=== PATIENT | female | born 1935 | race Caucasian/White ===

== ENCOUNTER 2020-04-15 12:23 | Outpatient (REF) | payer MEDICARE, SELFPAY ==
[2020-04-15 13:58] LABS: MANUAL DIFF FLAG NO
[2020-04-15 14:10] LABS: Basophils Percent Auto 0.5 % (0-2); Eosinophils Absolute Auto 0.3 X10*3/uL (0.0-0.4); Eosinophils Percent Auto 4.4 % (0-4); Hematocrit 33.5 % (37-47); Hemoglobin 10.6 g/dl (12.0-16.0); Imm Gran Abs Auto 0.01 X10*3/uL (0.00-0.03); Imm Gran Pct Auto 0.2 % (0.0-0.4); Lymphocytes Absolute Auto 1.4 X10*3/uL (1.2-4.9); Lymphocytes Percent Auto 23.2 % (20-40); Mean Corpuscular HGB Conc 31.6 g/dl (31.0-35.0); Mean Corpuscular Hemoglobin 29.4 pg (27.0-33.0); Mean Corpuscular Volume 93.1 fL (80-98); Mean Platelet Volume 12.6 fL (9.4-12.3); Monocytes Absolute Auto 0.7 X10*3/uL (0.1-1.2); Monocytes Percent Auto 10.7 % (2-11); Neutrophils Absolute Auto 3.8 X10*3/uL (2.0-8.3); Platelet Count 194 X10*3/uL (160-400); White Blood Count 6.2 X10*3/uL (4.8-10.8)
[2020-04-15 14:37] LABS: Alanine Aminotransferase 16 U/L (0-31); Albumin Level 3.9 g/dL (3.5-5.0); Alkaline Phosphatase 113 U/L (39-117); Anion Gap 13 (12-20); Aspartate Amino Transferase 23 U/L (5-31); Bilirubin Total 0.3 mg/dL (0.0-1.0); Blood Urea Nitrogen 21 mg/dL (9-16); Calcium 8.6 mg/dL (8.4-10.2); Carbon Dioxide 28 mmol/L (22-29); Chloride 106 mmol/L (96-108); Estimated Glomerular Filt Rate 41; Glucose Random 80 mg/dL (60-115); Iron 71 mcg/dL (30-160); Percent Iron Saturation 20 % (15-50); Potassium 5.2 mmol/l (3.3-5.1); Sodium 142 mmol/L (135-145); Total Iron Binding Capacity 353 mcg/dL (228-428); Total Protein 6.6 g/dL (6.5-8.0); Unsaturated Iron Binding 282 ug/dL
[2020-04-15 17:42] LABS: Estimated Average Glucose 137 mg/dL; Hemoglobin A1c % 6.4 %
== END 2020-04-15 12:24 | disposition home or self-care (01) ==
LOC: HO.HMGCLDS 12:23
PROVIDERS: PCP Internal Medicine; Visit Provider Internal Medicine
DX: E11.22 Type 2 diabetes mellitus with diabetic chronic kidney disease (principal); I12.9 Hypertensive chronic kidney disease with stage 1 through stage 4 chronic kidney disease, or unspecified chronic kidney disease; N18.9 Chronic kidney disease, unspecified; I25.10 Atherosclerotic heart disease of native coronary artery without angina pectoris; D64.9 Anemia, unspecified
CPT/HCPCS: 36415; 80053; 83036; 83540; 85025

== ENCOUNTER 2020-07-21 08:50 | Outpatient (REF) | payer MEDICARE, SELFPAY ==
[2020-07-21 11:13] LABS: MANUAL DIFF FLAG NO
[2020-07-21 11:30] LABS: Estimated Average Glucose 131 mg/dL; Hemoglobin A1c % 6.2 %
[2020-07-21 11:34] LABS: Basophils Percent Auto 0.4 % (0-2); Eosinophils Absolute Auto 0.3 X10*3/uL (0.0-0.4); Eosinophils Percent Auto 6.3 % (0-4); Hematocrit 32.7 % (37-47); Hemoglobin 10.2 g/dl (12.0-16.0); Imm Gran Abs Auto 0.02 X10*3/uL (0.00-0.03); Imm Gran Pct Auto 0.4 % (0.0-0.4); Lymphocytes Absolute Auto 1.1 X10*3/uL (1.2-4.9); Lymphocytes Percent Auto 20.1 % (20-40); Mean Corpuscular HGB Conc 31.2 g/dl (31.0-35.0); Mean Corpuscular Hemoglobin 28.7 pg (27.0-33.0); Mean Corpuscular Volume 91.9 fL (80-98); Mean Platelet Volume 12.6 fL (9.4-12.3); Monocytes Absolute Auto 0.5 X10*3/uL (0.1-1.2); Neutrophils Absolute Auto 3.3 X10*3/uL (2.0-8.3); Neutrophils Percent Auto 62.8 % (45-73); Platelet Count 176 X10*3/uL (160-400); Red Blood Count 3.56 X10*6/uL (4.20-5.50); Red Cell Distribution Width 13.3 % (11.0-16.0); White Blood Count 5.2 X10*3/uL (4.8-10.8)
[2020-07-21 11:53] LABS: Creatinine Urine 96.12 mg/dL
[2020-07-21 12:00] LABS: Alanine Aminotransferase 14 U/L (0-31); Albumin Level 3.9 g/dL (3.5-5.0); Alkaline Phosphatase 90 U/L (39-117); Anion Gap 13 (12-20); Aspartate Amino Transferase 19 U/L (5-31); Bilirubin Total 0.3 mg/dL (0.0-1.0); Blood Urea Nitrogen 27 mg/dL (9-16); Carbon Dioxide 28 mmol/L (22-29); Chloride 105 mmol/L (96-108); Cholesterol 134 mg/dL; Estimated Glomerular Filt Rate 42; Glucose Fasting 154 mg/dL (60-99); HDL Cholesterol 46 mg/dL; LDL Cholesterol Calculated 64 mg/dl; Potassium 5.2 mmol/L (3.3-5.1); Sodium 141 mmol/L (135-145); Total Protein 6.6 g/dL (6.5-8.0); Triglycerides 123 mg/dL
== END 2020-07-21 08:51 | disposition home or self-care (01) ==
LOC: HO.HMGCLDS 08:50
PROVIDERS: PCP Internal Medicine; Visit Provider Internal Medicine
DX: E11.22 Type 2 diabetes mellitus with diabetic chronic kidney disease (principal); I12.9 Hypertensive chronic kidney disease with stage 1 through stage 4 chronic kidney disease, or unspecified chronic kidney disease; I25.10 Atherosclerotic heart disease of native coronary artery without angina pectoris; N18.9 Chronic kidney disease, unspecified; E78.00 Pure hypercholesterolemia, unspecified
CPT/HCPCS: 36415; 80053; 80061; 82043; 83036; 85025

== ENCOUNTER 2020-09-28 11:49 | Outpatient (REF) | payer MEDICARE, SELFPAY ==
[2020-09-28 14:03] LABS: MANUAL DIFF FLAG NO
[2020-09-28 14:08] LABS: Basophils Percent Auto 0.3 % (0-2); Eosinophils Absolute Auto 0.3 X10*3/uL (0.0-0.4); Eosinophils Percent Auto 4.5 % (0-4); Hematocrit 33.6 % (37-47); Hemoglobin 10.5 g/dl (12.0-16.0); Imm Gran Abs Auto 0.02 X10*3/uL (0.00-0.03); Imm Gran Pct Auto 0.3 % (0.0-0.4); Lymphocytes Absolute Auto 1.4 X10*3/uL (1.2-4.9); Lymphocytes Percent Auto 22.6 % (20-40); Mean Corpuscular HGB Conc 31.3 g/dl (31.0-35.0); Mean Corpuscular Hemoglobin 28.8 pg (27.0-33.0); Mean Corpuscular Volume 92.1 fL (80-98); Mean Platelet Volume 12.7 fL (9.4-12.3); Monocytes Absolute Auto 0.7 X10*3/uL (0.1-1.2); Monocytes Percent Auto 10.8 % (2-11); Neutrophils Absolute Auto 3.9 X10*3/uL (2.0-8.3); Neutrophils Percent Auto 61.5 % (45-73); Platelet Count 196 X10*3/uL (160-400); Red Blood Count 3.65 X10*6/uL (4.20-5.50); Red Cell Distribution Width 13.4 % (11.0-16.0); White Blood Count 6.3 X10*3/uL (4.8-10.8)
[2020-09-28 14:32] LABS: Anion Gap 16 (12-20); Blood Urea Nitrogen 29 mg/dL (9-16); Carbon Dioxide 24 mmol/L (22-29); Chloride 103 mmol/L (96-108); Estimated Glomerular Filt Rate 39; Glucose Random 186 mg/dL (60-115); Sodium 138 mmol/L (135-145)
== END 2020-09-28 11:50 | disposition home or self-care (01) ==
LOC: HO.HMGCLDS 11:49
PROVIDERS: PCP Internal Medicine; Visit Provider Internal Medicine
DX: I11.0 Hypertensive heart disease with heart failure (principal); E11.22 Type 2 diabetes mellitus with diabetic chronic kidney disease; N18.9 Chronic kidney disease, unspecified
CPT/HCPCS: 36415; 80048; 85025

== ENCOUNTER 2020-10-01 13:03 | Outpatient (REF) | payer MEDICARE, SELFPAY ==
[2020-10-01 14:41] LABS: Influenza A PCR NEGATIVE (Negative); Influenza B PCR NEGATIVE (Negative); Resp Syncy Virus RNA Qual PCR NEGATIVE (Negative); SARS COV2 PCR INHOUSE NEGATIVE (Negative)
== END 2020-10-01 13:04 | disposition home or self-care (01) ==
LOC: HO.10HDLNP 13:03
PROVIDERS: Visit Provider Internal Medicine
DX: Z20.822 Contact with and (suspected) exposure to COVID-19 (principal)
CPT/HCPCS: 0241U

== ENCOUNTER 2020-10-19 11:32 | Outpatient (REF) | payer MEDICARE, SELFPAY ==
--- NOTE | ~2020-10-19 | US_ITS ---
EXAMINATION: US THYROID CLINICAL INFORMATION: Right lobe thyroid lesion. COMPARISON: None TECHNIQUE: Linear transducer grayscale and color Doppler examination with attention to the region of the thyroid. FINDINGS: SIZE: Measurements of the thyroid lobes and nodules are given in sagittal, anteroposterior and transverse dimensions respectively. Right Thyroid Lobe: 5.0 x 2.6 x 2.3 cm, volume 15.6 mL. Parenchyma: The gland echotexture is heterogeneous. Thyroid vascularity is normal. Left Thyroid Lobe: 3.8 x 1.1 x 1.1 cm, volume 2.4 mL. Parenchyma: The gland echotexture is mildly heterogeneous. Thyroid vascularity is normal. Isthmus: 0.3 cm in maximum AP dimension. Estimated total number of nodules greater than or equal to 1 cm: 1. Hay Farmer nodules are described as follows: 1. Location: Right mid. Size: 3.7 x 2.4 x 2.4 cm, volume 11.3 mL. Nodule characteristics: Composition: Solid (2). Echogenicity: Isoechoic (1). Shape: Not taller than wide (0). Margins: Smooth (0). Echogenic Foci: Macrocalcifications (1). ACR TI-RADS total points: 4 ACR TI-RADS category: 4 NODES: No lymphadenopathy is seen in the tissue surrounding the thyroid gland. US/US thyroid IMPRESSION: Solitary right thyroid nodule. Fine-needle aspiration recommended. ACR TI-RADS RECOMMENDATION REFERENCE: Ultrasound-guided fine-needle aspiration, followup ultrasound, no further follow up. * TR1 (0 point) and TR 2 (2 points): No FNA or follow up * TR3 (3 points): FNA if more than or equal to 2.5 cm in maximum dimension, followup ultrasound in 1, 3 and 5 years if 1.5 to 2.4 cm in maximum dimension. * TR4 (4-6 points): FNA if more than or equal to 1.5 cm in maximum dimension, followup ultrasound in 1, 2, 3 and 5 years if 1 to 1.4 cm in maximum dimension. * TR5 (more than or equal to 7 points): FNA if more than or equal to 1 cm in maximum dimension, followup ultrasound every year for 5 years if 0.5 to 0.9 cm in maximum dimension. * TR3, TR4 or TR5 nodules that are below the size threshold for follow up receive no follow up.
== END 2020-10-19 11:33 | disposition home or self-care (01) ==
LOC: HO.HMGCX 11:32
PROVIDERS: PCP Internal Medicine; Visit Provider Internal Medicine
DX: E07.89 Other specified disorders of thyroid (principal)
CPT/HCPCS: 76536

== ENCOUNTER 2020-11-18 09:49 | Outpatient (REF) | payer MEDICARE, SELFPAY ==
[2020-11-18 11:12] LABS: MANUAL DIFF FLAG NO
[2020-11-18 11:26] LABS: Basophils Percent Auto 0.5 % (0-2); Eosinophils Absolute Auto 0.3 X10*3/uL (0.0-0.4); Eosinophils Percent Auto 3.8 % (0-4); Hematocrit 33.1 % (37-47); Hemoglobin 10.4 g/dl (12.0-16.0); Imm Gran Abs Auto 0.02 X10*3/uL (0.00-0.03); Imm Gran Pct Auto 0.3 % (0.0-0.4); Lymphocytes Absolute Auto 1.2 X10*3/uL (1.2-4.9); Lymphocytes Percent Auto 18.5 % (20-40); Mean Corpuscular HGB Conc 31.4 g/dl (31.0-35.0); Mean Corpuscular Hemoglobin 29.5 pg (27.0-33.0); Mean Corpuscular Volume 93.8 fL (80-98); Mean Platelet Volume 12.8 fL (9.4-12.3); Monocytes Absolute Auto 0.7 X10*3/uL (0.1-1.2); Monocytes Percent Auto 9.8 % (2-11); Neutrophils Absolute Auto 4.5 X10*3/uL (2.0-8.3); Neutrophils Percent Auto 67.1 % (45-73); Platelet Count 178 X10*3/uL (160-400); Red Blood Count 3.53 X10*6/uL (4.20-5.50); Red Cell Distribution Width 13.7 % (11.0-16.0); White Blood Count 6.7 X10*3/uL (4.8-10.8)
[2020-11-18 12:08] LABS: Erythrocyte Sedimentation Rate 39 MM/HR (0-20)
[2020-11-18 12:10] LABS: Uric Acid 7.1 mg/dL (2.4-5.7)
== END 2020-11-18 09:50 | disposition home or self-care (01) ==
LOC: HO.HMGCLDS 09:49
PROVIDERS: PCP Internal Medicine; Visit Provider Podiatrist
DX: M10.072 Idiopathic gout, left ankle and foot (principal)
CPT/HCPCS: 36415; 84550; 85025; 85652

== ENCOUNTER 2020-12-27 08:25 | Outpatient (REF) | payer MEDICARE, SELFPAY ==
[2020-12-27 10:59] LABS: Free T4 (Free Thyroxine) 0.82 ng/dL (0.71-1.85); Thyroid Stimulating Hormone 2.14 uIU/mL (0.32-4.0)
== END 2020-12-27 08:26 | disposition home or self-care (01) ==
LOC: HO.10HDL 08:25
PROVIDERS: PCP Internal Medicine; Visit Provider Internal Medicine
DX: E04.2 Nontoxic multinodular goiter (principal)
CPT/HCPCS: 36415; 84439; 84443; 99202

== ENCOUNTER 2021-02-02 10:10 | Outpatient (REF) | payer MEDICARE, SELFPAY ==
[2021-02-02 11:17] LABS: MANUAL DIFF FLAG NO
[2021-02-02 11:27] LABS: Basophils Percent Auto 0.4 % (0-2); Eosinophils Absolute Auto 0.2 X10*3/uL (0.0-0.4); Eosinophils Percent Auto 4.3 % (0-4); Hematocrit 32.1 % (37-47); Hemoglobin 10.3 g/dl (12.0-16.0); Imm Gran Abs Auto 0.01 X10*3/uL (0.00-0.03); Imm Gran Pct Auto 0.2 % (0.0-0.4); Lymphocytes Absolute Auto 1.1 X10*3/uL (1.2-4.9); Lymphocytes Percent Auto 19.6 % (20-40); Mean Corpuscular HGB Conc 32.1 g/dl (31.0-35.0); Mean Corpuscular Hemoglobin 29.6 pg (27.0-33.0); Mean Corpuscular Volume 92.2 fL (80-98); Mean Platelet Volume 12.3 fL (9.4-12.3); Monocytes Absolute Auto 0.5 X10*3/uL (0.1-1.2); Monocytes Percent Auto 9.2 % (2-11); Neutrophils Absolute Auto 3.7 X10*3/uL (2.0-8.3); Neutrophils Percent Auto 66.3 % (45-73); Platelet Count 180 X10*3/uL (160-400); Red Blood Count 3.48 X10*6/uL (4.20-5.50); Red Cell Distribution Width 13.2 % (11.0-16.0); White Blood Count 5.6 X10*3/uL (4.8-10.8)
[2021-02-02 12:22] LABS: Alanine Aminotransferase 17 U/L (0-31); Albumin Level 3.7 g/dL (3.5-5.0); Alkaline Phosphatase 109 U/L (39-117); Anion Gap 12 (12-20); Aspartate Amino Transferase 18 U/L (5-31); Bilirubin Total 0.3 mg/dL (0.0-1.0); Blood Urea Nitrogen 27 mg/dL (9-16); Calcium 9.1 mg/dL (8.4-10.2); Carbon Dioxide 26 mmol/L (22-29); Chloride 104 mmol/L (96-108); Estimated Glomerular Filt Rate 41; Glucose Random 254 mg/dL (60-115); Iron 53 mcg/dL (30-160); Potassium 5.2 mmol/L (3.3-5.1); Sodium 137 mmol/L (135-145); Total Protein 6.3 g/dL (6.5-8.0)
[2021-02-02 12:23] LABS: Creatinine Urine 47.56 mg/dL; Microalbum/Creatinine Ratio Ur 115.6 ug/mg cr
[2021-02-02 12:53] LABS: Estimated Average Glucose 157 mg/dL; Hemoglobin A1c % 7.1 %
[2021-02-02 14:56] LABS: Percent Iron Saturation 14 % (15-50); Total Iron Binding Capacity 372 mcg/dL (228-428); Unsaturated Iron Binding 319 ug/dL
== END 2021-02-02 10:11 | disposition home or self-care (01) ==
LOC: HO.HMGCLDS 10:10
PROVIDERS: PCP Internal Medicine; Visit Provider Internal Medicine
DX: I12.9 Hypertensive chronic kidney disease with stage 1 through stage 4 chronic kidney disease, or unspecified chronic kidney disease (principal); E11.22 Type 2 diabetes mellitus with diabetic chronic kidney disease; N18.9 Chronic kidney disease, unspecified; I25.10 Atherosclerotic heart disease of native coronary artery without angina pectoris
CPT/HCPCS: 36415; 80053; 82043; 83036; 83540; 85025

== ENCOUNTER 2021-02-24 09:58 | Outpatient (REF) | payer MEDICARE, SELFPAY ==
--- NOTE | 2021-02-24 10:35 | P.BOP_ITS ---
Brief Operative Note Date of Service: 02/24/21 Pre-op diagnosis: Multinodular Thyroid Procedure: This is doctor Jazmine Cunningham. This is an ultrasound-guided fine-needle aspiration report. Date of Examination: 02/24/2021 Indication: Multinodular Thyroid Porcedure: Procedure was explained to the patient. Alternatives, the risk and benefits were discussed. Written consent was obtained. A time-out was also obtained. After sterile preparation, fine-needle aspiration of a right mid pole 3.7 cm thyroid nodule was performed using direct ultrasound guidance to confirm accurate needle placement. Four aspirations were made using 27 gauge needles. Samples were submitted for cytology. One pass was dedicated for [employer] mathematics department chair testing. The patient tolerated the procedure well. Aftercare instructions were provided. Impression: Uncomplicated fine needle aspiration biopsy of a right mid pole 3.7 cm thyroid nodule under ultrasound guidance. Surgeon: Jazmine Cunningham, DO Was an Intelligence Support Officer used for this Procedure?: No Estimated blood loss (mL): 0
== END 2021-02-24 09:59 | disposition home or self-care (01) ==
LOC: HO.US 09:58
PROVIDERS: PCP Internal Medicine; Visit Provider Internal Medicine
DX: E04.2 Nontoxic multinodular goiter (principal)
CPT/HCPCS: 10005; 88172; 88173; 88177

== ENCOUNTER → 2021-03-10 10:14 | Outpatient (BNVA) | payer MEDICARE, SELFPAY | PROVIDERS: PCP Internal Medicine; Visit Provider Internal Medicine | CPT/HCPCS: Q3014 ==

== ENCOUNTER → 2021-03-11 14:41 | Outpatient (BNVA) | payer MEDICARE, SELFPAY | PROVIDERS: PCP Internal Medicine; Visit Provider Physician Assistant | DX: M17.0 Bilateral primary osteoarthritis of knee (principal) | CPT/HCPCS: 20610; 99212; J7318 ==

== ENCOUNTER 2021-06-23 11:55 | Outpatient (REF) | payer MEDICARE, SELFPAY ==
[2021-06-23 14:27] LABS: Anion Gap 13 (12-20); Blood Urea Nitrogen 32 mg/dL (9-16); Calcium 9.2 mg/dL (8.4-10.2); Carbon Dioxide 28 mmol/L (22-29); Chloride 101 mmol/L (96-108); Estimated Glomerular Filt Rate 35; Glucose Random 322 mg/dL (60-115); Potassium 4.8 mmol/L (3.3-5.1); Sodium 137 mmol/L (135-145)
== END 2021-06-23 11:56 | disposition home or self-care (01) ==
LOC: HO.HMGCLDS 11:55
PROVIDERS: PCP Internal Medicine; Visit Provider Nurse Practitioner Family
DX: I25.10 Atherosclerotic heart disease of native coronary artery without angina pectoris (principal)
CPT/HCPCS: 36415; 80048

== ENCOUNTER 2021-10-17 11:48 | Outpatient (REF) | payer MEDICARE, SELFPAY ==
[2021-10-17 13:58] LABS: MANUAL DIFF FLAG NO
[2021-10-17 14:11] LABS: Basophils Percent Auto 0.5 % (0-2); Eosinophils Absolute Auto 0.2 X10*3/uL (0.0-0.4); Eosinophils Percent Auto 2.7 % (0-4); Hematocrit 32.5 % (37.0-47.0); Hemoglobin 10.4 g/dl (12.0-16.0); Imm Gran Abs Auto 0.02 X10*3/uL (0.00-0.03); Imm Gran Pct Auto 0.4 % (0.0-0.4); Lymphocytes Absolute Auto 1.2 X10*3/uL (1.2-4.9); Mean Corpuscular Hemoglobin 30.9 pg (27.0-33.0); Mean Corpuscular Volume 96.4 fL (80.0-98.0); Mean Platelet Volume 13.8 fL (9.4-12.3); Monocytes Absolute Auto 0.5 X10*3/uL (0.1-1.2); Monocytes Percent Auto 9.7 % (2-11); Neutrophils Absolute Auto 3.6 x10*3/uL (2.0-8.3); Neutrophils Percent Auto 64.7 % (45-73); Platelet Count 161 X10*3/uL (160-400); Red Blood Count 3.37 X10*6/uL (4.20-5.50); White Blood Count 5.5 X10*3/uL (4.8-10.8)
[2021-10-17 14:15] LABS: Estimated Average Glucose 278 mg/dL; Hemoglobin A1c % 11.3 %
[2021-10-17 14:27] LABS: Anion Gap 15 (12-20); Carbon Dioxide 25 mmol/L (22-29); Chloride 97 mmol/L (96-108); Potassium 4.9 mmol/L (3.3-5.1); Sodium 132 mmol/L (135-145)
[2021-10-17 14:28] LABS: Alanine Aminotransferase 20 U/L (0-31); Albumin Level 3.6 g/dL (3.5-5.0); Alkaline Phosphatase 124 U/L (39-117); Aspartate Amino Transferase 27 U/L (5-31); Bilirubin Total 0.2 mg/dL (0.0-1.0); Blood Urea Nitrogen 31 mg/dL (9-16); Calcium 9.2 mg/dL (8.4-10.2); Estimated Glomerular Filt Rate 26; Total Protein 6.4 g/dL (6.5-8.0)
[2021-10-17 14:29] LABS: Creatinine Urine 42.41 mg/dL; Microalbum/Creatinine Ratio Ur 58.9 ug/mg cr
[2021-10-17 15:21] LABS: Glucose Random 422 mg/dL (60-115)
== END 2021-10-17 11:49 | disposition home or self-care (01) ==
LOC: HO.HMGCLDS 11:48
PROVIDERS: PCP Internal Medicine; Visit Provider Internal Medicine
DX: I12.9 Hypertensive chronic kidney disease with stage 1 through stage 4 chronic kidney disease, or unspecified chronic kidney disease (principal); N18.9 Chronic kidney disease, unspecified; E11.22 Type 2 diabetes mellitus with diabetic chronic kidney disease; I25.10 Atherosclerotic heart disease of native coronary artery without angina pectoris
CPT/HCPCS: 36415; 80053; 82043; 83036; 85025

== ENCOUNTER 2021-12-19 13:42 | Outpatient (REF) | payer MEDICARE, SELFPAY ==
[2021-12-19 16:47] LABS: Estimated Average Glucose 192 mg/dL; Hemoglobin A1c % 8.3 %
[2021-12-19 16:53] LABS: Anion Gap 15 (12-20); Blood Urea Nitrogen 28 mg/dL (9-16); Carbon Dioxide 22 mmol/L (22-29); Chloride 102 mmol/L (96-108); Estimated Glomerular Filt Rate 35; Glucose Random 220 mg/dL (60-115); Potassium 4.5 mmol/L (3.3-5.1); Sodium 134 mmol/L (135-145)
== END 2021-12-19 13:43 | disposition home or self-care (01) ==
LOC: HO.HMGCLDS 13:42
PROVIDERS: PCP Internal Medicine; Visit Provider Internal Medicine
DX: I12.9 Hypertensive chronic kidney disease with stage 1 through stage 4 chronic kidney disease, or unspecified chronic kidney disease (principal); N18.9 Chronic kidney disease, unspecified; E11.22 Type 2 diabetes mellitus with diabetic chronic kidney disease
CPT/HCPCS: 36415; 80048; 83036

== ENCOUNTER 2022-03-01 09:55 | Outpatient (REF) | payer MEDICARE, SELFPAY ==
--- NOTE | ~2022-03-01 | US_ITS ---
EXAMINATION: US THYROID CLINICAL INFORMATION: Nontoxic multinodular goiter. COMPARISON: Ultrasound soft tissue head/neck thyroid dated 10/19/2020. TECHNIQUE: Linear transducer grayscale and color Doppler examination with attention to the region of the thyroid. FINDINGS: SIZE: Measurements of the thyroid lobes and nodules are given in sagittal, anteroposterior and transverse dimensions respectively. Right Thyroid Lobe: 4.1 x 2.9 x 2.5 cm, volume 15.6 mL. Previously 5.0 x 2.6 x 2.3 cm, volume 15.6 mL. Parenchyma: The gland echotexture is heterogeneous. Thyroid vascularity is normal. Left Thyroid Lobe: 3.8 x 1.5 x 0.9 cm, volume 2.7 mL. Previously 3.8 x 1.1 x 1.1 cm, volume 2.4 mL. Parenchyma: The gland echotexture is heterogeneous. Thyroid vascularity is normal. Isthmus: 0.2 cm in maximum AP dimension. Previously 0.3 cm. Estimated total number of nodules greater than or equal to 1 cm: 1. Diamond Die Driller nodules are described as follows: 1. Location: Right. Size: 3.6 x 2.4 x 2.6 cm, volume 11.3 mL. Previously: 3.7 x 2.4 x 2.4 cm, volume 11.3 mL. Nodule characteristics: Composition: Solid (2). Echogenicity: Hypoechoic (2). Shape: Not taller than wide (0). Margins: Smooth (0). Echogenic Foci: Macrocalcifications (1). ACR TI-RADS total points: 5 Previous: 4 ACR TI-RADS category: 4 Previous: 4 Significant change in size (>/= 20% in 2 dimensions and minimal increase of 2 mm or 50% or greater increase in volume): No Change in features: No Change in ACR TI-RADS risk category: No NODES: No lymphadenopathy is seen in the tissue surrounding the thyroid gland. US/US thyroid IMPRESSION: Heterogeneous thyroid echotexture. Enlarged right lobe. Stable right thyroid nodule. ACR TI-RADS RECOMMENDATION REFERENCE: Ultrasound-guided fine-needle aspiration, followup ultrasound, no further follow up. * TR1 (0 point) and TR 2 (2 points): No FNA or follow up * TR3 (3 points): FNA if more than or equal to 2.5 cm in maximum dimension, followup ultrasound in 1, 3 and 5 years if 1.5 to 2.4 cm in maximum dimension. * TR4 (4-6 points): FNA if more than or equal to 1.5 cm in maximum dimension, followup ultrasound in 1, 2, 3 and 5 years if 1 to 1.4 cm in maximum dimension. * TR5 (more than or equal to 7 points): FNA if more than or equal to 1 cm in maximum dimension, followup ultrasound every year for 5 years if 0.5 to 0.9 cm in maximum dimension. * TR3, TR4 or TR5 nodules that are below the size threshold for follow up receive no follow up.
== END 2022-03-01 09:56 | disposition home or self-care (01) ==
LOC: HO.HMGCX 09:55
PROVIDERS: PCP Internal Medicine; Visit Provider Internal Medicine
DX: E04.2 Nontoxic multinodular goiter (principal)
CPT/HCPCS: 76536

== ENCOUNTER 2022-03-21 08:17 | Outpatient (REF) | payer MEDICARE, SELFPAY ==
[2022-03-21 11:20] LABS: MANUAL DIFF FLAG NO
[2022-03-21 11:30] LABS: Basophils Percent Auto 0.6 % (0-2); Eosinophils Absolute Auto 0.2 X10*3/uL (0.0-0.4); Eosinophils Percent Auto 4.2 % (0-4); Hematocrit 32.9 % (37.0-47.0); Hemoglobin 10.6 g/dl (12.0-16.0); Imm Gran Abs Auto 0.01 X10*3/uL (0.00-0.03); Imm Gran Pct Auto 0.2 % (0.0-0.4); Lymphocytes Absolute Auto 1.5 X10*3/uL (1.2-4.9); Lymphocytes Percent Auto 31.6 % (20-40); Mean Corpuscular HGB Conc 32.2 g/dl (31.0-35.0); Mean Corpuscular Hemoglobin 31.2 pg (27.0-33.0); Mean Corpuscular Volume 96.8 fL (80.0-98.0); Mean Platelet Volume 12.4 fL (9.4-12.3); Monocytes Absolute Auto 0.6 X10*3/uL (0.1-1.2); Monocytes Percent Auto 11.5 % (2-11); Neutrophils Absolute Auto 2.5 x10*3/uL (2.0-8.3); Neutrophils Percent Auto 51.9 % (45-73); Platelet Count 173 X10*3/uL (160-400); Red Cell Distribution Width 13.2 % (11.0-16.0); White Blood Count 4.8 X10*3/uL (4.8-10.8)
[2022-03-21 11:35] LABS: Estimated Average Glucose 154 mg/dL
[2022-03-21 11:42] LABS: Alanine Aminotransferase 25 U/L (0-31); Albumin Level 3.9 g/dL (3.5-5.0); Alkaline Phosphatase 110 U/L (39-117); Anion Gap 16 (12-20); Aspartate Amino Transferase 31 U/L (5-31); Bilirubin Total 0.3 mg/dL (0.0-1.0); Blood Urea Nitrogen 26 mg/dL (9-16); Calcium 9.3 mg/dL (8.4-10.2); Carbon Dioxide 26 mmol/L (22-29); Chloride 103 mmol/L (96-108); Cholesterol 124 mg/dL; Estimated Glomerular Filt Rate 34; Glucose Fasting 122 mg/dL (60-99); HDL Cholesterol 40 mg/dL; LDL Cholesterol Calculated 48 mg/dl; Potassium 5.1 mmol/L (3.3-5.1); Sodium 140 mmol/L (135-145); Total Protein 6.5 g/dL (6.5-8.0); Triglycerides 184 mg/dL
[2022-03-21 12:06] LABS: Creatinine Urine 82.57 mg/dL; Microalbum/Creatinine Ratio Ur 56.9 ug/mg cr
[2022-03-21 12:18] LABS: Free T4 (Free Thyroxine) 0.91 ng/dL (0.71-1.85); Thyroid Stimulating Hormone 2.83 uIU/mL (0.32-4.0)
== END 2022-03-21 08:18 | disposition home or self-care (01) ==
LOC: HO.HMGCLDS 08:17
PROVIDERS: Internal Medicine; PCP Internal Medicine; Visit Provider Internal Medicine
DX: E04.2 Nontoxic multinodular goiter (principal); I25.10 Atherosclerotic heart disease of native coronary artery without angina pectoris; E78.00 Pure hypercholesterolemia, unspecified; I12.9 Hypertensive chronic kidney disease with stage 1 through stage 4 chronic kidney disease, or unspecified chronic kidney disease; N18.9 Chronic kidney disease, unspecified
CPT/HCPCS: 36415; 80053; 80061; 82043; 83036; 84439; 84443; 85025

== ENCOUNTER → 2022-04-14 10:22 | Outpatient (BNVA) | payer MEDICARE, SELFPAY | PROVIDERS: PCP Internal Medicine; Visit Provider Physician Assistant | DX: M17.0 Bilateral primary osteoarthritis of knee (principal) | CPT/HCPCS: 20610; J7318 ==

== ENCOUNTER 2022-07-19 14:12 | Outpatient (REF) | payer MEDICARE, SELFPAY ==
[2022-07-19 16:50] LABS: Estimated Average Glucose 166 mg/dL; Hemoglobin A1c % 7.4 %
[2022-07-19 16:55] LABS: Alanine Aminotransferase 27 U/L (0-31); Albumin Level 4.1 g/dL (3.5-5.0); Alkaline Phosphatase 130 U/L (39-117); Anion Gap 15 (12-20); Aspartate Amino Transferase 35 U/L (5-31); Bilirubin Total 0.5 mg/dL (0.0-1.0); Blood Urea Nitrogen 28 mg/dL (9-16); Calcium 9.9 mg/dL (8.4-10.2); Carbon Dioxide 26 mmol/L (22-29); Chloride 104 mmol/L (96-108); Estimated Glomerular Filt Rate 34; Glucose Random 132 mg/dL (60-115); Potassium 5.1 mmol/L (3.3-5.1); Sodium 140 mmol/L (135-145); Total Protein 6.8 g/dL (6.5-8.0)
== END 2022-07-19 14:13 | disposition home or self-care (01) ==
LOC: HO.HMGCLDS 14:12
PROVIDERS: PCP Internal Medicine; Visit Provider Internal Medicine
DX: E11.22 Type 2 diabetes mellitus with diabetic chronic kidney disease (principal); I12.9 Hypertensive chronic kidney disease with stage 1 through stage 4 chronic kidney disease, or unspecified chronic kidney disease; N18.9 Chronic kidney disease, unspecified
CPT/HCPCS: 36415; 80053; 83036

== ENCOUNTER 2022-09-28 10:00 | Outpatient (REF) | payer MEDICARE, SELFPAY ==
[2022-09-28 12:15] LABS: Influenza A PCR NEGATIVE (Negative); Influenza B PCR NEGATIVE (Negative); Resp Syncy Virus RNA Qual PCR NEGATIVE (Negative); SARS COV2 PCR INHOUSE NEGATIVE (Negative)
[2022-09-28 12:54] LABS: Folate > 20.0 ng/mL (> or = 4.0); Vitamin B12 934 pg/mL (200-900)
== END 2022-09-28 10:01 | disposition home or self-care (01) ==
LOC: HO.LAB 10:00
PROVIDERS: Psychiatry & Neurology Neurology; Visit Provider Internal Medicine
DX: Z20.822 Contact with and (suspected) exposure to COVID-19 (principal); R09.89 Other specified symptoms and signs involving the circulatory and respiratory systems
CPT/HCPCS: 0241U; 36415; 82607; 82746

== ENCOUNTER 2022-10-19 10:49 | Outpatient (REF) | payer MEDICARE, SELFPAY ==
[2022-10-19 14:14] LABS: Alanine Aminotransferase 16 U/L (0-31); Albumin Level 3.7 g/dL (3.5-5.0); Alkaline Phosphatase 91 U/L (39-117); Anion Gap 13 (12-20); Aspartate Amino Transferase 24 U/L (5-31); Bilirubin Total 0.5 mg/dL (0.0-1.0); Blood Urea Nitrogen 28 mg/dL (9-16); Carbon Dioxide 24 mmol/L (22-29); Chloride 106 mmol/L (96-108); Estimated Glomerular Filt Rate 31; Glucose Random 175 mg/dL (60-115); Potassium 4.8 mmol/L (3.3-5.1); Sodium 138 mmol/L (135-145); Total Protein 6.3 g/dL (6.5-8.0)
[2022-10-19 14:17] LABS: Estimated Average Glucose 169 mg/dL; Hemoglobin A1c % 7.5 %
== END 2022-10-19 10:50 | disposition home or self-care (01) ==
LOC: HO.HMGCLDS 10:49
PROVIDERS: PCP Internal Medicine; Visit Provider Internal Medicine
DX: I12.9 Hypertensive chronic kidney disease with stage 1 through stage 4 chronic kidney disease, or unspecified chronic kidney disease (principal); E11.22 Type 2 diabetes mellitus with diabetic chronic kidney disease; N18.9 Chronic kidney disease, unspecified; I25.10 Atherosclerotic heart disease of native coronary artery without angina pectoris
CPT/HCPCS: 36415; 80053; 83036

== ENCOUNTER → 2022-10-30 14:53 | Outpatient (BNVA) | payer MEDICARE, SELFPAY | PROVIDERS: PCP Internal Medicine; Visit Provider Internal Medicine | DX: E04.2 Nontoxic multinodular goiter (principal) | CPT/HCPCS: 99212 ==

== ENCOUNTER 2023-02-24 08:11 | Outpatient (REF) | payer MEDICARE, SELFPAY ==
[2023-02-24 11:23] LABS: Anion Gap 15 (12-20); Blood Urea Nitrogen 26 mg/dL (9-16); Calcium 9.7 mg/dL (8.4-10.2); Carbon Dioxide 25 mmol/L (22-29); Chloride 104 mmol/L (96-108); Estimated Glomerular Filt Rate 37; Glucose Random 99 mg/dL (60-115); Potassium 4.7 mmol/L (3.3-5.1); Sodium 139 mmol/L (135-145)
[2023-02-24 11:32] LABS: Estimated Average Glucose 157 mg/dL; Hemoglobin A1c % 7.1 % (<6.0)
== END 2023-02-24 08:12 | disposition home or self-care (01) ==
LOC: HO.HMGCLDS 08:11
PROVIDERS: PCP Internal Medicine; Visit Provider Internal Medicine
DX: I12.9 Hypertensive chronic kidney disease with stage 1 through stage 4 chronic kidney disease, or unspecified chronic kidney disease (principal); E11.22 Type 2 diabetes mellitus with diabetic chronic kidney disease; N18.9 Chronic kidney disease, unspecified
CPT/HCPCS: 36415; 80048; 83036

== ENCOUNTER 2023-04-03 14:31 | Outpatient (REF) | payer MEDICARE, SELFPAY ==
[2023-04-03 16:19] LABS: MANUAL DIFF FLAG NO
[2023-04-03 16:34] LABS: Estimated Average Glucose 154 mg/dL
[2023-04-03 16:45] LABS: Basophils Percent Auto 0.3 % (0-2); Eosinophils Absolute Auto 0.3 X10*3/uL (0.0-0.4); Eosinophils Percent Auto 4.6 % (0-4); Hematocrit 34.9 % (37.0-47.0); Hemoglobin 11.3 g/dl (12.0-16.0); Imm Gran Abs Auto 0.01 X10*3/uL (0.00-0.03); Imm Gran Pct Auto 0.2 % (0.0-0.4); Lymphocytes Absolute Auto 1.4 X10*3/uL (1.2-4.9); Lymphocytes Percent Auto 21.7 % (20-40); Mean Corpuscular HGB Conc 32.4 g/dl (31.0-35.0); Mean Corpuscular Hemoglobin 31.1 pg (27.0-33.0); Mean Corpuscular Volume 96.1 fL (80.0-98.0); Mean Platelet Volume 12.6 fL (9.4-12.3); Monocytes Absolute Auto 0.7 X10*3/uL (0.1-1.2); Monocytes Percent Auto 10.3 % (2-11); Neutrophils Percent Auto 62.9 % (45-73); Platelet Count 179 X10*3/uL (160-400); Red Blood Count 3.63 X10*6/uL (4.20-5.50); Red Cell Distribution Width 13.6 % (11.0-16.0); White Blood Count 6.3 X10*3/uL (4.8-10.8)
[2023-04-03 17:01] LABS: Alanine Aminotransferase 42 U/L (0-31); Albumin Level 3.9 g/dL (3.5-5.0); Alkaline Phosphatase 154 U/L (39-117); Anion Gap 16 (12-20); Aspartate Amino Transferase 48 U/L (5-31); Bilirubin Total 0.4 mg/dL (0.0-1.0); Blood Urea Nitrogen 30 mg/dL (9-16); Calcium 9.6 mg/dL (8.4-10.2); Carbon Dioxide 25 mmol/L (22-29); Chloride 102 mmol/L (96-108); Estimated Glomerular Filt Rate 35; Glucose Random 148 mg/dL (60-115); Potassium 4.5 mmol/L (3.3-5.1); Sodium 138 mmol/L (135-145); Total Protein 7.1 g/dL (6.5-8.0)
== END 2023-04-03 14:32 | disposition home or self-care (01) ==
LOC: HO.HMGCLDS 14:31
PROVIDERS: PCP Internal Medicine; Visit Provider Internal Medicine
DX: E11.22 Type 2 diabetes mellitus with diabetic chronic kidney disease (principal); I12.9 Hypertensive chronic kidney disease with stage 1 through stage 4 chronic kidney disease, or unspecified chronic kidney disease; N18.9 Chronic kidney disease, unspecified; R60.9 Edema, unspecified
CPT/HCPCS: 36415; 80053; 83036; 85025

== ENCOUNTER 2023-07-18 08:27 | Outpatient (REF) | payer MEDICARE, SELFPAY ==
[2023-07-18 11:49] LABS: Basophils Percent Auto 0.6 % (0-2); Eosinophils Absolute Auto 0.2 X10*3/uL (0.0-0.4); Eosinophils Percent Auto 4.5 % (0-4); Hematocrit 33.7 % (37.0-47.0); Imm Gran Abs Auto 0.02 X10*3/uL (0.00-0.03); Imm Gran Pct Auto 0.4 % (0.0-0.4); Lymphocytes Absolute Auto 1.4 X10*3/uL (1.2-4.9); Lymphocytes Percent Auto 28.8 % (20-40); MANUAL DIFF FLAG NO; Mean Corpuscular HGB Conc 32.6 g/dl (31.0-35.0); Mean Corpuscular Hemoglobin 32.3 pg (27.0-33.0); Mean Corpuscular Volume 98.8 fL (80.0-98.0); Mean Platelet Volume 12.5 fL (9.4-12.3); Monocytes Absolute Auto 0.6 X10*3/uL (0.1-1.2); Monocytes Percent Auto 11.5 % (2-11); Neutrophils Absolute Auto 2.7 x10*3/uL (2.0-8.3); Neutrophils Percent Auto 54.2 % (45-73); Platelet Count 156 X10*3/uL (160-400); Red Blood Count 3.41 X10*6/uL (4.20-5.50); Red Cell Distribution Width 13.9 % (11.0-16.0); White Blood Count 4.9 X10*3/uL (4.8-10.8)
[2023-07-18 12:02] LABS: Estimated Average Glucose 160 mg/dL; Hemoglobin A1c % 7.2 % (<6.0)
[2023-07-18 12:36] LABS: Creatinine Urine 73.25 mg/dL; Microalbum/Creatinine Ratio Ur 73.7 ug/mg cr (<30)
[2023-07-18 12:53] LABS: Alanine Aminotransferase 24 U/L (0-31); Albumin Level 3.5 g/dL (3.5-5.0); Alkaline Phosphatase 146 U/L (39-117); Anion Gap 11 (12-20); Aspartate Amino Transferase 37 U/L (5-31); Bilirubin Total 0.3 mg/dL (0.0-1.0); Blood Urea Nitrogen 25 mg/dL (9-16); Calcium 9.2 mg/dL (8.4-10.2); Carbon Dioxide 29 mmol/L (22-29); Chloride 105 mmol/L (96-108); Cholesterol 115 mg/dL (<200); Estimated Glomerular Filt Rate 36; Glucose Fasting 149 mg/dL (60-99); HDL Cholesterol 43 mg/dL (>40); LDL Cholesterol Calculated 45 mg/dL (<100); Sodium 140 mmol/L (135-145); Total Protein 6.5 g/dL (6.5-8.0); Triglycerides 139 mg/dL (<150)
== END 2023-07-18 08:28 | disposition home or self-care (01) ==
LOC: HO.HMGCLDS 08:27
PROVIDERS: PCP Internal Medicine; Visit Provider Internal Medicine
DX: I12.9 Hypertensive chronic kidney disease with stage 1 through stage 4 chronic kidney disease, or unspecified chronic kidney disease (principal); E11.22 Type 2 diabetes mellitus with diabetic chronic kidney disease; N18.9 Chronic kidney disease, unspecified; I25.10 Atherosclerotic heart disease of native coronary artery without angina pectoris
CPT/HCPCS: 36415; 80053; 80061; 82043; 82570; 83036; 85025

== ENCOUNTER 2023-10-16 08:23 | Outpatient (REF) | payer MEDICARE, SELFPAY ==
[2023-10-16 10:19] LABS: MANUAL DIFF FLAG NO
[2023-10-16 10:33] LABS: Basophils Percent Auto 0.6 % (0-2); Eosinophils Absolute Auto 0.3 X10*3/uL (0.0-0.4); Eosinophils Percent Auto 5.8 % (0-4); Estimated Average Glucose 169 mg/dL; Hematocrit 35.2 % (37.0-47.0); Hemoglobin 11.7 g/dl (12.0-16.0); Hemoglobin A1c % 7.5 % (<6.0); Imm Gran Abs Auto 0.02 X10*3/uL (0.00-0.03); Imm Gran Pct Auto 0.4 % (0.0-0.4); Lymphocytes Absolute Auto 1.5 X10*3/uL (1.2-4.9); Lymphocytes Percent Auto 28.8 % (20-40); Mean Corpuscular HGB Conc 33.2 g/dl (31.0-35.0); Mean Corpuscular Hemoglobin 32.8 pg (27.0-33.0); Mean Corpuscular Volume 98.6 fL (80.0-98.0); Mean Platelet Volume 12.6 fL (9.4-12.3); Monocytes Absolute Auto 0.5 X10*3/uL (0.1-1.2); Neutrophils Absolute Auto 2.8 x10*3/uL (2.0-8.3); Neutrophils Percent Auto 54.4 % (45-73); Platelet Count 146 X10*3/uL (160-400); Red Blood Count 3.57 X10*6/uL (4.20-5.50); Red Cell Distribution Width 13.1 % (11.0-16.0); White Blood Count 5.2 X10*3/uL (4.8-10.8)
[2023-10-16 10:47] LABS: Alanine Aminotransferase 22 U/L (0-31); Albumin Level 3.7 g/dL (3.5-5.0); Alkaline Phosphatase 105 U/L (39-117); Anion Gap 15 (12-20); Aspartate Amino Transferase 33 U/L (5-31); Bilirubin Total 0.4 mg/dL (0.0-1.0); Blood Urea Nitrogen 29 mg/dL (9-16); Calcium 9.9 mg/dL (8.4-10.2); Carbon Dioxide 24 mmol/L (22-29); Chloride 106 mmol/L (96-108); Cholesterol 119 mg/dL (<200); Estimated Glomerular Filt Rate 39; Glucose Random 129 mg/dL (60-115); HDL Cholesterol 44 mg/dL (>40); Iron 105 mcg/dL (30-160); LDL Cholesterol Calculated 40 mg/dL (<100); Percent Iron Saturation 33 % (15-50); Potassium 4.6 mmol/L (3.3-5.1); Sodium 140 mmol/L (135-145); Total Iron Binding Capacity 319 mcg/dL (228-428); Total Protein 6.8 g/dL (6.5-8.0); Triglycerides 178 mg/dL (<150); Unsaturated Iron Binding 214 ug/dL
== END 2023-10-16 08:24 | disposition home or self-care (01) ==
LOC: HO.HMGCLDS 08:23
PROVIDERS: PCP Internal Medicine; Referring Provider Nurse Practitioner Family; Visit Provider Internal Medicine
DX: D64.9 Anemia, unspecified (principal); I25.10 Atherosclerotic heart disease of native coronary artery without angina pectoris; I12.9 Hypertensive chronic kidney disease with stage 1 through stage 4 chronic kidney disease, or unspecified chronic kidney disease; E11.22 Type 2 diabetes mellitus with diabetic chronic kidney disease; N18.9 Chronic kidney disease, unspecified
CPT/HCPCS: 36415; 80053; 80061; 83036; 83540; 85025

== ENCOUNTER 2023-11-01 13:06 | Outpatient (AMB) | payer MEDICARE, SELFPAY ==
--- NOTE | 2023-11-01 13:18 | MHC.OFFVIS ---
Intake Visit Reasons: Bilateral Knee Durolane Intake Note: Erica an 87 yr old female who presents today for bilateral knee durolane injections. Patient reports that she has good relief with gel injection. Allergies Sftvnix-MXW-TeH Reductase Inhibitor Allergy (Unknown, Verified 11/01/23 13:29) myalgias codeine Adverse Reaction (Unknown, Verified 11/01/23 13:29) nausea and feels loopy and out of sorts HPI HPI Bilateral Knee Durolane : Details: 88-year-old female who returns to the office today for a bilateral knee Durolane injection. FORMERLY [facility] Medical History CAD (coronary artery disease) HLD (hyperlipidemia) Multinodular thyroid T2DM (type 2 diabetes mellitus) Surgical History History of surgery History of back surgery Hx of hysterectomy Hx of appendectomy Hx of cholecystectomy Family History Mother No problems noted. Father No problems noted. Social History Alcohol intake: never Patient Tobacco Use Status: Never used Tobacco Review of Systems Const All systems reviewed & are unremarkable except as noted in HPI and below Physical Exam Extrem Other: Bilateral knee: Skin intact, no erythema or joint effusion. Tenderness along the medial and lateral joint line. Full ROM with crepitus. Negative Damien?s. No ligamentous laxity. NVI. Office Procedures Joint Injection/Drain Joint Injection/Drain Details: bilat durolane Primary Site: right knee Secondary Site: left knee Prep: site was prepped using aseptic technique, ethochloride spray was applied and injection warnings given Injected: in the joint Approach Used: anterolateral Procedure: The patient tolerated the procedure well Coding 75439 - Glenohumeral/Tronchanteric Bursa/Intraarticular Procedure code (CPT) selection complete Assessment & Plan Assessment & Plan (1) Osteoarthritis of knees, bilateral: Code(s): M17.0 - Bilateral primary osteoarthritis of knee Category: Medical Qualifiers: Osteoarthritis type: primary Qualified Code(s): M17.0 - Bilateral primary osteoarthritis of knee Plan We discussed options today which include Durolane injection. They did consent to move forward with the bilateral knee Durolane injection, which was tolerated well. I recommended rest, ice and elevation and OTC anti-inflammatories PRN for discomfort. If symptoms persist or worsens over the next 6-8 weeks, patient will contact the office, otherwise follow-up as needed. Patient Instructions: Scribed for Meagan Alejandra PA-C, by Darnell Garza medical charge entry specialist, on 11/01/2023 at 1:15 PM EST.? I, Meagan Alejandra PA-C, have personally reviewed and agree with the information entered by the scribe. Coding Level of Care Code Procedure Only Diagnoses Primary osteoarthritis of both knees M17.0 Osteoarthritis type: primary CPT Codes Coding - Joint 7: 70270 - Glenohumeral/Tronchanteric Bursa/Intraarticular ([id number])
== END 2023-11-01 13:42 | disposition home or self-care (01) ==
PROVIDERS: PCP Internal Medicine; Visit Provider Physician Assistant
DX: M17.0 Bilateral primary osteoarthritis of knee (principal)
CPT/HCPCS: 20610

== ENCOUNTER → 2023-11-01 13:06 | Outpatient (BNVA) | payer MEDICARE, SELFPAY | PROVIDERS: PCP Internal Medicine; Visit Provider Physician Assistant | DX: M17.0 Bilateral primary osteoarthritis of knee (principal) | CPT/HCPCS: 20610; J7318 ==

== ENCOUNTER 2024-01-24 08:17 | Outpatient (REF) | payer MEDICARE, SELFPAY ==
[2024-01-24 10:13] LABS: Estimated Average Glucose 163 mg/dL; Hemoglobin A1c % 7.3 % (<6.0)
[2024-01-24 10:20] LABS: Alanine Aminotransferase 26 U/L (0-31); Albumin Level 3.7 g/dL (3.5-5.0); Alkaline Phosphatase 131 U/L (39-117); Anion Gap 12 (12-20); Aspartate Amino Transferase 31 U/L (5-31); Bilirubin Total 0.4 mg/dL (0.0-1.0); Blood Urea Nitrogen 31 mg/dL (9-16); Calcium 9.7 mg/dL (8.4-10.2); Carbon Dioxide 27 mmol/L (22-29); Chloride 104 mmol/L (96-108); Estimated Glomerular Filt Rate 27; Glucose Random 101 mg/dL (60-115); Sodium 138 mmol/L (135-145); Total Protein 6.7 g/dL (6.5-8.0)
== END 2024-01-24 08:18 | disposition home or self-care (01) ==
LOC: HO.HMGCLDS 08:17
PROVIDERS: PCP Internal Medicine; Visit Provider Internal Medicine
DX: E11.22 Type 2 diabetes mellitus with diabetic chronic kidney disease (principal); I12.9 Hypertensive chronic kidney disease with stage 1 through stage 4 chronic kidney disease, or unspecified chronic kidney disease; I25.10 Atherosclerotic heart disease of native coronary artery without angina pectoris; N18.9 Chronic kidney disease, unspecified
CPT/HCPCS: 36415; 80053; 83036

== ENCOUNTER 2024-02-12 12:51 | Outpatient (AMB) | payer MEDICARE, SELFPAY ==
--- NOTE | 2024-02-12 13:00 | A.OFFVIS_ITS ---
Vital Signs 3 02/12/24 13:03 Height 5 ft Weight 268 lb 4.841 oz BMI 52.4 BP 142/82 H Blood Pressure Location Lt brachial Position Sitting Pulse 78 Pulse Source Pulse Oximeter Intake Visit Reasons: NTMNG/CONFIRMED Intake Note: Patient present today for NTMNG follow up visit. Print Machine Operator Required: No Accompanied by: Self / Same As Patient Allergies Kkcaepe-IXY-FvA Reductase Inhibitor Allergy (Unknown, Verified 02/12/24 13:05) myalgias codeine Adverse Reaction (Unknown, Verified 02/12/24 13:05) nausea and feels loopy and out of sorts HPI Comments Details: 88 YO F with PMHx Multinodular Thyroid who is seen in F/U for a NTMNG. She was previously seeing ini Dr. Chavez. Last visit was October 2022. HPI from prior visit Initially diagnosed with multinodular thyroid in 2020 after a hospitalization for an PR. Imaging at that time revealed a thyroid nodule. She followed up with her PCP who ordered a dedicated thyroid US, which revealed a 3.7 cm right mid pole thyroid nodule in 2020.. She was referred to Endocrinology. She underwent FNA biopsy 02/24/2021 of her RMP 3.7 cm thyroid nodule with benign cytology. Repeat imaging 2021 was unchanged from prior. No recent thyroid function testing done. Last labs I see are from 2021. These showed normal TSH. Patient currently denies , diarrhea or constipation, hair loss, palpitation, anxiety, weight changes, mood changes, low energy, changes in appearance of eyes or vision changes, tremors, increased diaphoresis or dry skin. ?Does have some temperature intolerance. Patient denies any , pain on swallowing or voice changes or difficulty breathing. Does have intermittent trouble swallowing but not bothersome. Patient denies any history of childhood neck radiation. Denies having ever used lithium, amiodarone or biotin supplements. Patient denies any family history of thyroid cancer. Her Daughter did have her thyroid removed, but she states there was no cancer within. Last Thyroid US: I reviewed the images myself, which do show the right lobe nodule, though night we slightly smaller than 3.6 cm in the sagittal dimension as I feel the nodule boundaries are smaller. 03/01/2022 Right Thyroid Lobe: 4.1 x 2.9 x 2.5 cm, volume 15.6 mL. Previously 5.0 x 2.6 x 2.3 cm, volume 15.6 mL. Parenchyma: The gland echotexture is heterogeneous. Thyroid vascularity is normal. Left Thyroid Lobe: 3.8 x 1.5 x 0.9 cm, volume 2.7 mL. Previously 3.8 x 1.1 x 1.1 cm, volume 2.4 mL. Parenchyma: The gland echotexture is heterogeneous. Thyroid vascularity is normal. Isthmus: 0.2 cm in maximum AP dimension. Previously 0.3 cm. Estimated total number of nodules greater than or equal to 1 cm: 1. Manager Multicultural nodules are described as follows: 1.? Location: Right. ?? ? Size: 3.6 x 2.4 x 2.6 cm, volume 11.3 mL. ?? ? Previously: 3.7 x 2.4 x 2.4 cm, volume 11.3 mL. ?? ? Nodule characteristics: ?? ? Composition: Solid (2). ?? ? Echogenicity: Hypoechoic (2). ?? ? Shape: Not taller than wide (0). ?? ? Margins: Smooth (0). ?? ? Echogenic Foci: Macrocalcifications (1).? ACR TI-RADS total points: 5 Previous: 4 ?? ? ACR TI-RADS category: 4 Previous: 4 ? Significant change in size (>/= 20% in 2 dimensions and minimal increase of 2 mm or 50% or greater increase in volume): No ?? ? Change in features: No ?? ? Change in ACR TI-RADS risk category: No NODES: No lymphadenopathy is seen in the tissue surrounding the thyroid gland. Review of systems Constitutional: no fevers, chills HEENT: no changes in vision Cardiac: No chest pain, discomfort or palpitations. Pulmonary: No SOB GI:No abdominal pain, no nausea or vomiting, no anorexia, no blood in stool : no burning micturition, dysuria or increase in urinary frequency Neurologic: No dizziness, no weakness in extremities MSK: has joint pains from rheumatoid arthritis Physical exam General: sitting comfortably in no acute distress HEENT: normocephalic/atraumatic Neck: supple, palpable 2-3 cm right-sided thyroid nodule located medially Cardiac: normal heart sounds Pulm: normal breath sounds B/L, no added breath sounds Abd: not distended, no tenderness Extremities: Bilateral pitting edema Neuro: AAO x3, Speech: normal, no facial droop, moving all 4 extremities PFSH Medical History CAD (coronary artery disease) HLD (hyperlipidemia) Multinodular thyroid T2DM (type 2 diabetes mellitus) Surgical History History of surgery History of back surgery Hx of hysterectomy Hx of appendectomy Hx of cholecystectomy Family History Mother No problems noted. Father No problems noted. Social History Alcohol intake: never Patient Tobacco Use Status: Never used Tobacco Results Reviewed Results Reviewed: Laboratory Tests 12/27/20 03/21/22 09:09 08:28 TSH 2.14 2.83 Free T4 0.82 0.91 US 02/2022 THYROID CLINICAL INFORMATION: Nontoxic multinodular goiter. COMPARISON: Ultrasound soft tissue head/neck thyroid dated 10/19/2020. TECHNIQUE: Linear transducer grayscale and color Doppler examination with attention to the region of the thyroid. FINDINGS: SIZE: Measurements of the thyroid lobes and nodules are given in sagittal, anteroposterior and transverse dimensions respectively. Right Thyroid Lobe: 4.1 x 2.9 x 2.5 cm, volume 15.6 mL. Previously 5.0 x 2.6 x 2.3 cm, volume 15.6 mL. Parenchyma: The gland echotexture is heterogeneous. Thyroid vascularity is normal. Left Thyroid Lobe: 3.8 x 1.5 x 0.9 cm, volume 2.7 mL. Previously 3.8 x 1.1 x 1.1 cm, volume 2.4 mL. Parenchyma: The gland echotexture is heterogeneous. Thyroid vascularity is normal. Isthmus: 0.2 cm in maximum AP dimension. Previously 0.3 cm. Estimated total number of nodules greater than or equal to 1 cm: 1. Manager Multicultural nodules are described as follows: 1. Location: Right. Size: 3.6 x 2.4 x 2.6 cm, volume 11.3 mL. Previously: 3.7 x 2.4 x 2.4 cm, volume 11.3 mL. Nodule characteristics: Composition: Solid (2). Echogenicity: Hypoechoic (2). Shape: Not taller than wide (0). Margins: Smooth (0). Echogenic Foci: Macrocalcifications (1). ACR TI-RADS total points: 5 Previous: 4 ACR TI-RADS category: 4 Previous: 4 Significant change in size (>/= 20% in 2 dimensions and minimal increase of 2 mm or 50% or greater increase in volume): No Change in features: No Change in ACR TI-RADS risk category: No NODES: No lymphadenopathy is seen in the tissue surrounding the thyroid gland. US/US thyroid IMPRESSION: Heterogeneous thyroid echotexture. Enlarged right lobe. Stable right thyroid nodule. ACR TI-RADS RECOMMENDATION REFERENCE: Ultrasound-guided fine-needle aspiration, followup ultrasound, no further follow up. * TR1 (0 point) and TR 2 (2 points): No FNA or follow up * TR3 (3 points): FNA if more than or equal to 2.5 cm in maximum dimension, followup ultrasound in 1, 3 and 5 years if 1.5 to 2.4 cm in maximum dimension. * TR4 (4-6 points): FNA if more than or equal to 1.5 cm in maximum dimension, followup ultrasound in 1, 2, 3 and 5 years if 1 to 1.4 cm in maximum dimension. * TR5 (more than or equal to 7 points): FNA if more than or equal to 1 cm in maximum dimension, followup ultrasound every year for 5 years if 0.5 to 0.9 cm in maximum dimension. * TR3, TR4 or TR5 nodules that are below the size threshold for follow up receive no follow up. Assessment & Plan Assessment & Plan (1) Multinodular thyroid: Code(s): E04.2 - Nontoxic multinodular goiter Category: Medical Plan: Patient with no family history of thyroid cancer, with no personal history of head or neck radiation, with a history of thyroid nodule. She has a dominant 3.7 cm right-sided thyroid nodule per ultrasound in 2020 and repeat in 2021. No repeat ultrasound since then. She underwent FNA of this nodule in 2020 which was benign. Patient does have some intermittent trouble swallowing but nothing bothersome. I did discuss with her that while this could potentially be from her thyroid nodule, given her age and comorbidities, since her dysphagia is not too bothersome, I would not recommend undergoing surgery. She agrees with this. Her last ultrasound was from 2021, I will repeat this now. I discussed with the patient that if her nodule remains stable in size on this ultrasound, we will plan to see her back in 1 year to see if there is any clinical changes with swallowing. We will also check thyroid function tests. She is complaining of some temperature intolerance. Plan: -ordered thyroid ultrasound -ordered TSH and free T4 -follow up in 1 year Plan I spent 30 minutes in reviewing the record, seeing the patient and documenting in the medical record. Orders: Orders 2 Free T4 (Free Thyroxine) Today E04.2 - Nontoxic multinodular goiter US thyroid Today E04.2 - Nontoxic multinodular goiter Thyroid Stimulating Hormone Today E04.2 - Nontoxic multinodular goiter Patient Instructions: Get ultrasound thyroid done Get blood work done for thyroid Coding Level of Care Code Est Pt Level 4 (98907) Diagnoses Multinodular thyroid E04.2 Time Spent (min) 30
[2024-02-12 13:03] VITALS: BP 142/82; PULSE 78; BMI 52.4
== END 2024-02-12 13:28 | disposition home or self-care (01) ==
PROVIDERS: PCP Internal Medicine; Visit Provider Student in an Organized Health Care Education/Training Program
DX: E04.2 Nontoxic multinodular goiter (principal)
CPT/HCPCS: 99214

== ENCOUNTER → 2024-02-12 12:51 | Outpatient (BNVA) | payer MEDICARE, SELFPAY | PROVIDERS: PCP Internal Medicine; Visit Provider Student in an Organized Health Care Education/Training Program | DX: E04.2 Nontoxic multinodular goiter (principal) | CPT/HCPCS: 99212 ==

== ENCOUNTER 2024-02-18 12:48 | Outpatient (REF) | payer MEDICARE, SELFPAY ==
--- NOTE | ~2024-02-18 | US_ITS ---
EXAMINATION: US THYROID CLINICAL INFORMATION: Nontoxic multinodular goiter. COMPARISON: Ultrasound thyroid 03/01/2022 and 10/19/2020. TECHNIQUE: Linear transducer grayscale and color Doppler examination with attention to the region of the thyroid. FINDINGS: SIZE: Measurements of the thyroid lobes and nodules are given in sagittal, anteroposterior and transverse dimensions respectively. Right Thyroid Lobe: 4.6 x 2.9 x 2.0 cm, volume 14.0 mL. Previously 4.1 x 2.9 x 2.5 cm, volume 15.6 mL. Parenchyma: The gland echotexture is heterogeneous. Thyroid vascularity is normal. Left Thyroid Lobe: 4.3 x 1.0 x 1.0 cm, volume 20.3 mL. Previously 3.8 x 1.5 x 0.9 cm, volume 2.7 mL. Parenchyma: The gland echotexture is homogeneous. Thyroid vascularity is normal. Isthmus: 0.3 cm in maximum AP dimension. Previously 0.2 cm. Estimated total number of nodules greater than or equal to 1 cm: 1. Doughnut Machine Operator Helper nodules are described as follows: 1. Location: Right mid pole. Size: 3.7 x 2.5 x 2.5 cm, volume 12.1 mL. Previously: 3.6 x 2.4 x 2.6 cm, volume 11.3 mL. Nodule characteristics: Composition: Solid (2). Echogenicity: Hypoechoic (2). Shape: Not taller than wide (0). Margins: Smooth (0). Echogenic Foci: Macrocalcifications (1). ACR TI-RADS total points: 5 Previous: 5 ACR TI-RADS category: 4 Previous: 4 Significant change in size (>/= 20% in 2 dimensions and minimal increase of 2 mm or 50% or greater increase in volume): No Change in features: No Change in ACR TI-RADS risk category: No NODES: No lymphadenopathy is seen in the tissue surrounding the thyroid gland. US/US thyroid IMPRESSION: 1. There is an asymmetric goiter, right lobe greater than left. 2. There is heterogeneous thyroid echotexture, which can be associated with thyroiditis. 3. A 3.7 cm mid right thyroid lobe TR 4 nodule meets ACR biopsy criteria. Please correlate with the ultrasound biopsy results dated 02/24/2021. ACR TI-RADS RECOMMENDATION REFERENCE: Ultrasound-guided fine-needle aspiration, follow up ultrasound, no further followup. * TR1 (0 point) and TR2 (2 points): No FNA or followup * TR3 (3 points): FNA if more than or equal to 2.5 cm in maximum dimension, follow up ultrasound in 1, 3 and 5 years if 1.5 to 2.4 cm in maximum dimension. * TR4 (4-6 points): FNA if more than or equal to 1.5 cm in maximum dimension, follow up ultrasound in 1, 2, 3 and 5 years if 1 to 1.4 cm in maximum dimension. * TR5 (more than or equal to 7 points): FNA if more than or equal to 1 cm in maximum dimension, follow up ultrasound every year for 5 years if 0.5 to 0.9 cm in maximum dimension. * TR3, TR4 or TR5 nodules that are below the size threshold for follow up receive no followup. Electronically signed by: Larry Badillo MD 02/28/2024 05:00 PM EDT
[2024-02-18 16:24] LABS: MANUAL DIFF FLAG NO
[2024-02-18 16:47] LABS: Basophils Percent Auto 0.5 % (0-2); Eosinophils Absolute Auto 0.3 X10*3/uL (0.0-0.4); Hematocrit 35.5 % (37.0-47.0); Hemoglobin 11.5 g/dl (12.0-16.0); Imm Gran Abs Auto 0.01 X10*3/uL (0.00-0.03); Imm Gran Pct Auto 0.2 % (0.0-0.4); Lymphocytes Absolute Auto 1.8 X10*3/uL (1.2-4.9); Lymphocytes Percent Auto 30.1 % (20-40); Mean Corpuscular HGB Conc 32.4 g/dl (31.0-35.0); Mean Corpuscular Hemoglobin 32.7 pg (27.0-33.0); Mean Corpuscular Volume 100.9 fL (80.0-98.0); Mean Platelet Volume 12.2 fL (9.4-12.3); Monocytes Absolute Auto 0.7 X10*3/uL (0.1-1.2); Monocytes Percent Auto 11.5 % (2-11); Neutrophils Absolute Auto 3.1 x10*3/uL (2.0-8.3); Neutrophils Percent Auto 52.7 % (45-73); Platelet Count 146 X10*3/uL (160-400); Red Blood Count 3.52 X10*6/uL (4.20-5.50); Red Cell Distribution Width 13.2 % (11.0-16.0); White Blood Count 5.9 X10*3/uL (4.8-10.8)
[2024-02-18 17:26] LABS: Anion Gap 15 (12-20); Blood Urea Nitrogen 28 mg/dL (9-16); Calcium 9.7 mg/dL (8.4-10.2); Carbon Dioxide 25 mmol/L (22-29); Chloride 104 mmol/L (96-108); Estimated Glomerular Filt Rate 35; Glucose Random 205 mg/dL (60-115); Potassium 4.9 mmol/L (3.3-5.1); Sodium 139 mmol/L (135-145)
[2024-02-18 17:30] LABS: Free T4 (Free Thyroxine) 0.78 ng/dL (0.71-1.85); Thyroid Stimulating Hormone 2.37 uIU/mL (0.32-4.0)
== END 2024-02-18 12:49 | disposition home or self-care (01) ==
LOC: HO.HMGCX 12:48
PROVIDERS: PCP Internal Medicine; Referring Provider Internal Medicine; Visit Provider Student in an Organized Health Care Education/Training Program
DX: E04.2 Nontoxic multinodular goiter (principal); I12.9 Hypertensive chronic kidney disease with stage 1 through stage 4 chronic kidney disease, or unspecified chronic kidney disease; E11.22 Type 2 diabetes mellitus with diabetic chronic kidney disease; N18.9 Chronic kidney disease, unspecified
CPT/HCPCS: 36415; 76536; 80048; 84439; 84443; 85025

== ENCOUNTER 2024-05-05 11:01 | Outpatient (AMB) | payer MEDICARE, SELFPAY ==
--- NOTE | 2024-05-05 11:05 | MHC.OFFVIS ---
Intake Visit Reasons: OV-Bilateral Knee Durolane injection Intake Note: Erica an 89 year old female who presents today for bilateral knee Durolane injection. Patient reports last injection provided her with relief, stating she feels better relief than cortisone injections. States her pain has been bad this past week due to the cold weather. She is requesting an updated x-ray at her next visit. Allergies Zhaesjm-FIE-CaA Reductase Inhibitor Allergy (Unknown, Verified 05/05/24 11:13) myalgias codeine Adverse Reaction (Unknown, Verified 05/05/24 11:13) nausea and feels loopy and out of sorts Medication List - Last Reconciled 05/05/24 by Meagan Alejandra PA-C allopurinol 100 mg PO DAILY aspirin 81 mg PO DAILY brimonidine-timolol 0.2-0.5 % 1 drp ophthalmic (eye) DAILY clopidogrel 75 mg PO DAILY dulaglutide (Trulicity) mg subcut furosemide 20 mg PO DAILY gabapentin 300 mg PO glipizide 5 mg PO DAILY metformin ER 500 mg PO BID metoprolol succinate ER 50 mg PO DAILY omeprazole 20 mg PO DAILY prednisone 10 mg PO DAILY 5 days rosuvastatin 10 mg PO BEDTIME tobramycin-dexamethasone 0.3-0.1 % 1 drp ophthalmic (eye) DAILY HPI HPI OV-Bilateral Knee Durolane injection: Details: 89-year-old female who returns to the office today for a bilateral knee Durolane gel injection. FORMERLY [facility] Medical History CAD (coronary artery disease) HLD (hyperlipidemia) Multinodular thyroid T2DM (type 2 diabetes mellitus) Surgical History History of surgery History of back surgery Hx of hysterectomy Hx of appendectomy Hx of cholecystectomy Family History Mother No problems noted. Father No problems noted. Social History Alcohol intake: never Patient Tobacco Use Status: Never used Tobacco Review of Systems Const All systems reviewed & are unremarkable except as noted in HPI and below Physical Exam Extrem Other: Bilateral knee: Skin intact, no erythema or joint effusion. Tenderness along the medial and lateral joint line. Full ROM with crepitus. Negative Damien?s. No ligamentous laxity. NVI. Office Procedures AMB Joint Injection/Aspiration Joint Injection/Aspiration Details: durolane injection bilat knee Primary Site: right knee Secondary Site: left knee Prep: site was prepped using aseptic technique, ethochloride spray was applied and injection warnings given Injected: in the joint Approach Used: anterolateral Procedure: The patient tolerated the procedure well and there was some relief with the local anesthesia Coding 19321 - Glenohumeral/Tronchanteric Bursa/Intraarticular Procedure code (CPT) selection complete Assessment & Plan Assessment & Plan (1) Osteoarthritis of knees, bilateral: Code(s): M17.0 - Bilateral primary osteoarthritis of knee Category: Medical Qualifiers: Osteoarthritis type: primary Qualified Code(s): M17.0 - Bilateral primary osteoarthritis of knee Plan We discussed options today, which include Durolane gel injection. The patient did consent to move forward with the bilateral knee Durolane injection, which was tolerated well. I recommended rest, ice, and elevation and OTC anti-inflammatories as needed for discomfort. If symptoms persist or worsens over the next 6-8 weeks, patient will contact the office, otherwise follow-up as needed. Patient Instructions: Scribed for Meagan Alejandra PA-C, by Darnell Garza medical records analyst, on 05/05/2024 at 11:00 AM EST.? I, Meagan Alejandra PA-C, have personally reviewed and agree with the information entered by the scribe. Coding Level of Care Code Procedure Only Diagnoses Primary osteoarthritis of both knees M17.0 Osteoarthritis type: primary CPT Codes Coding - Joint 7: 35317 - Glenohumeral/Tronchanteric Bursa/Intraarticular ([id number])
== END 2024-05-05 11:19 | disposition home or self-care (01) ==
PROVIDERS: PCP Internal Medicine; Visit Provider Physician Assistant
DX: M17.0 Bilateral primary osteoarthritis of knee (principal)
CPT/HCPCS: 20610

== ENCOUNTER → 2024-05-05 11:01 | Outpatient (BNVA) | payer MEDICARE, SELFPAY | PROVIDERS: PCP Internal Medicine; Visit Provider Physician Assistant | DX: M17.0 Bilateral primary osteoarthritis of knee (principal) | CPT/HCPCS: 20610; J7318 ==

== ENCOUNTER 2024-09-25 11:00 | Outpatient (AMB) | payer MEDICARE, SELFPAY ==
--- NOTE | 2024-09-25 11:15 | A.OFFPC_ITS ---
Vital Signs 09/25/24 11:16 Height 5 ft BP 140/80 H Blood Pressure Location Lt brachial Position Sitting Pulse 84 Pulse Source Pulse Oximeter Temp 97.4 F Temp Source Axillary Pulse Oximetry (%) 97 Oxygen Delivery Method Room Air Intake Visit Reasons: Routine Chief Talent Officer Required: No Allergies Kvybrsv-NBB-TlD Reductase Inhibitor Allergy (Unknown, Verified 09/25/24 11:16) myalgias codeine Adverse Reaction (Unknown, Verified 09/25/24 11:16) nausea and feels loopy and out of sorts Tobacco use date assessed: 09/25/24 Fall risk assessment: No Falls in past year Last assessed Fall Risk: 09/25/24 Dental Screening Dental Screen Date: 09/25/24 Did you have a dental visit in the last 12 months?: Yes Did you have a dental problem in the last 6 months where you did not have access to dental care?: No HPI HPI Comments History of Present Illness Details The patient is an 89 year old female with a past medical history of diabetes, htn, CAD, PPM, CKD, presenting for follow up Diabetes: On trulicity, glipizide, metformin. Last A1C 7.3. She is due for retest. Gabapentin 300 am and 600 pm. CV: on toprol 50mg daily, crestor, ASA. Following with cardiology ROS CONSTITUTIONAL: Denies weight loss, fever and chills. HEENT: Denies changes in vision and hearing. RESPIRATORY: Denies SOB and cough. CV: Denies palpitations and CP GI: Denies abdominal pain, nausea, vomiting and diarrhea. : Denies dysuria and urinary frequency. MSK: Denies new myalgia and joint pain. SKIN: Denies rash and pruritus. NEUROLOGICAL: Denies headache PSYCHIATRIC: Denies recent changes in mood. PHYSICAL EXAM: GENERAL: Alert and oriented x 3. NAD EYES: EOMI. Anicteric. HENT: Moist mucous membranes. No scleral icterus. No cervical lymphadenopathy. LUNGS: Clear to auscultation bilaterally. CARDIOVASCULAR: Regular rate and rhythm. No murmur. No JVD. ABDOMEN: Soft, non-tender +bs EXTREMITIES: No edema. Non-tender. SKIN: No rashes or lesions. Warm. NEUROLOGIC: No focal neurological deficits. CN II-XII grossly intact PSYCHIATRIC: Cooperative. Appropriate mood and affect COUNTS INCLUDE [facility] BEDS AT [facility] Medical History HLD (hyperlipidemia) T2DM (type 2 diabetes mellitus) CAD (coronary artery disease) Multinodular thyroid Surgical History History of surgery History of back surgery Hx of hysterectomy Hx of appendectomy Hx of cholecystectomy Family History Mother No problems noted. Father No problems noted. Social History Housing: House Alcohol intake: never Patient Tobacco Use Status: Never used Tobacco e-Cigarette/Vaping Use: Never Used service: No Current occupational status: retired Cognitive needs: Yes (walker) Hearing needs: No Vision needs: Yes (rx glasses) Questionnaire PHQ-9 Over the last 2 weeks, how often have you been bothered by any of the following problems? 1. Little interest or pleasure in doing things: not at all 2. Feeling down, depressed, or hopeless: not at all 3. Trouble falling or staying asleep, or sleeping too much: not at all 4. Feeling tired or having little energy: not at all 5. Poor appetite or overeating: not at all 6. Feeling bad about yourself - or that you are a failure or have let yourself or your family down: not at all 7. Trouble concentrating on things, such as reading the newspaper or watching television: not at all 8. Moving or speaking so slowly that other people could have noticed. Or the opposite - being so fidgety or restless that you have been moving around a lot more than usual: not at all 9. Thoughts that you would be better off or of hurting yourself in some way: not at all Total score: 0 Depression Screening Interpretation: Negative Depression Screening Done: Yes 56550 - PHQ-9 Billing: Yes Source: Developed by Drs. Temo Estrada, Fara Scott, Guille Drummond and colleagues, with an educational priyank from [employer]. Thrive Questionnaire Date Thrive assessed: 09/25/24 I am a: Patient Within the past 12 months, did the food you bought not last and you didn't have the money to get more?: Never true Within the past 12 months, did you worry whether your food would run out before you got money to buy more?: Never true Do you have trouble paying for medicines?: No Do you have trouble getting transportation to medical appointments?: No Do you have trouble paying your heating and electricity bill?: No Do you have trouble taking care of your child, family member or friend?: No Do you have trouble with day-to-day activities such as bathing, preparing meals, shopping, managing finances, etc.?: No Are you currently unemployed and looking for a job?: No Are you interested in more education?: No THRIVE Score: 0 AUDIT C Alcohol Use Questionnaire (AUDIT-C) 1. How often do you have a drink containing alcohol?: Never 3. How often do you have six or more drinks on one occasion?: Never Total Score: 0 RODRÍGUEZ-7 AMB Questionnaire RODRÍGUEZ-7 Date RODRÍGUEZ - 7 assessed: 09/25/24 Feeling nervous, anxious, or on edge: 0 = Not at all Not being able to stop or control worryin = Not at all Worrying too much about different things: 0 = Not at all Trouble relaxin = Not at all Being so restless that it is hard to sit still: 0 = Not at all Becoming easily annoyed or irritable: 0 = Not at all Feeling afraid as if something awful might happen: 0 = Not at all Total RODRÍGUEZ-7 score (0-4 normal; 5-9 mild; 10-14 moderate; 15-21 severe): 0 Source: Developed by Drs. Temo Estrada, Fara Scott, Guille Drummond and colleagues, with an educational priyank from [employer]. Physical exam (Primary Care) Vital Signs: Last Vital Signs Temp 97.4 F 09/25/24 11:16 Pulse 84 09/25/24 11:16 BP 140/80 H 09/25/24 11:16 Pulse Ox 97 09/25/24 11:16 Oxygen Delivery Method Room Air 09/25/24 11:16 Tobacco/Smoking Status: Tobacco use Status Tobacco use date assessed 09/25/24 09/25/24 11:18 Patient Tobacco Use Status Never used Tobacco 09/25/24 11:18 e-Cigarette/Vaping Use Never Used 09/25/24 11:18 PHQ-9: PHQ-9 Score PHQ-9: Total score 0 09/25/24 12:05 Depression Screening Interpretation: Negative Thrive Assessment: Date of Thrive Assessment Date Thrive assessed 09/25/24 09/25/24 11:18 Coding Level of Care Code New Pt Level 4 (43216) Diagnoses Type 2 diabetes mellitus with other specified complication, without long-term current use of insulin E11.69 Diabetes mellitus fci insulin use: without fci use Diabetes mellitus complication status: with other specified complication Hyperlipidemia, unspecified hyperlipidemia type E78.5 Hyperlipidemia type: unspecified Multinodular thyroid E04.2 Primary osteoarthritis of both knees M17.0 Osteoarthritis type: primary Additional Codes PHQ-9 - 55164 - PHQ-9 Billing: Yes ([id number]) Assessment & Plan Assessment & Plan (1) T2DM (type 2 diabetes mellitus): Code(s): E11.9 - Type 2 diabetes mellitus without complications Category: Medical Qualifiers: Diabetes mellitus fci insulin use: without fci use Diabetes mellitus complication status: with other specified complication Qualified Code(s): E11.69 - Type 2 diabetes mellitus with other specified complication (2) HLD (hyperlipidemia): Code(s): E78.5 - Hyperlipidemia, unspecified Category: Medical Qualifiers: Hyperlipidemia type: unspecified Qualified Code(s): E78.5 - Hyperlipidemia, unspecified (3) Multinodular thyroid: Code(s): E04.2 - Nontoxic multinodular goiter Category: Medical (4) Osteoarthritis of knees, bilateral: Code(s): M17.0 - Bilateral primary osteoarthritis of knee Category: Medical Qualifiers: Osteoarthritis type: primary Qualified Code(s): M17.0 - Bilateral primary osteoarthritis of knee Plan 89 year old female presenting to [facility] Past medical, surgical, social reviewed DM is stable. She is due for A1C Orders: Orders Complete Blood Count Auto Diff Today E04.2 - Nontoxic multinodular goiter, E11.9 - Type 2 diabetes mellitus without complications, E78.5 - Hyperlipidemia, unspecified Hemoglobin A1c Today E04.2 - Nontoxic multinodular goiter, E11.9 - Type 2 diabetes mellitus without complications, E78.5 - Hyperlipidemia, unspecified Comprehensive Met. Panel Today E04.2 - Nontoxic multinodular goiter, E11.9 - Type 2 diabetes mellitus without complications, E78.5 - Hyperlipidemia, unspecified Vitamin B12 and Folate Today E04.2 - Nontoxic multinodular goiter, E11.9 - Type 2 diabetes mellitus without complications, E78.5 - Hyperlipidemia, unspecified TSH reflex Free T4 Today E04.2 - Nontoxic multinodular goiter, E11.9 - Type 2 diabetes mellitus without complications, E78.5 - Hyperlipidemia, unspecified Lipid Panel Today E04.2 - Nontoxic multinodular goiter, E11.9 - Type 2 diabetes mellitus without complications, E78.5 - Hyperlipidemia, unspecified
[2024-09-25 11:16] VITALS: BP 140/80; PULSE 84; TEMP 36.3; O2SAT 97
--- OUTSIDE RECORDS SUMMARY | 2024-09-25 13:31 | XMS_ITS ---
Author Name [facility] Organization Unknown History of Medication Use Medication Directions Dispensed Refills Start Date End Date Stat us gabapentin (NEURONTIN) 300 MG capsule Take 300 mg by mouth 2 (two) times a day before breakfast and dinner. active metFORMIN (GLUCOPHAGE) 500 MG tablet Take 1,000 mg by mouth 2 (two) times a day. active glipiZIDE (GLUCOTROL) 5 MG tablet Take 10 mg by mouth every morning before breakfast. active latanoprost (Xalatan) 0.005 % ophthalmic solution Administer 1 drop into the left eye daily. 06/26/2024 active Problems Problem Status Onset Date Problem Type Date of Resoluti on Source Primary open angle glaucoma (POAG) of both eyes, mild stage active EncounterDiagnosisAct CCT Encounters Encounter Type Encounter Reason Primary Diagnosis Location Date Ambulatory Type 2 diabetes mellitus without complications Type 2 diabetes mellitus without complications [facility] 06/26/2024 Care Team Organization Name Specialty Phone Email Start Date End Da te [facility] Fidel Lucero [facility] 07/15/2024 08/28/19 [facility] Fidel [facility] 04/15/2024 [facility] 04/10/2023 3
--- OUTSIDE RECORDS SUMMARY | 2024-09-25 13:31 | XMS_ITS | Encounter Summary ---
Author Organization [facility] Address [address] [place] [address] Care Team Providers Care Billing And Accounting Staff Assistant Name Role Phone Fidel Lucero MD Primary Care Provider [phone] Encounter Details Date Type Department Care Team (Late Contact Info) Description 03/07/2016 Prep for Surgery [facility] [address] [place] [address] Lance Núñez MD [address] [place] [phone] (Fax) Social History Tobacco Use Types Packs/Day Years Used Date Smoking Tobacco: Never Smokeless Tobacco: Never Alcohol Use Standard Drinks/Week Comments No 0 (1 standard drink = 0.6 oz pur e alcohol) Comments Unknown Sex and Gender Information Value Date Recorded Sex Assigned at Not on file Legal Sex Female 2:30 PM EDT Gender Identity Not on file Sexual Orientation Not on file documented as of this encounter Plan of Treatment Upcoming Encounters Date Type Department Care Team (Late st Contact Info) Description 09/29/2024 9:00 AM EDT [facility], [address] [phone] Lance Núñez MD [address] [place] [phone] (Fax) documented as of this encounter Visit Diagnoses Not on filedocumented in this encounter Care Teams Billing And Accounting Staff Assistant Relationship Specialty Start Date End Date Fidel Lucero MD [address] [place] [address] [place] [address] PCP - General 03/01/16 documented as of this encounter
--- OUTSIDE RECORDS SUMMARY | 2024-09-25 13:31 | XMS_ITS | Clinical Summary ---
Author Organization [facility] Address [address] [place] [address] Care Team Providers Care Design Quality Engineer Name Role Phone Fidel Lucero MD Primary Care Provider Allergies Active Allergy Reactions Criticality Noted Date Comments Adhesives/Tape Other (See Comments) 03/06/2016 redness Codeine Delirium/Confusion/P sych osis Low 03/06/2016 Other Other (See Comments) 03/06/2016 EKG stickers - redness Medications metFORMIN (GLUCOPHAGE) 500 MG tablet Take 1,000 mg by mouth 2 (two) times a day. Active glipiZIDE (GLUCOTROL) 5 MG tablet Take 10 mg by mouth every morning before breakfast. Active gabapentin (NEURONTIN) 300 MG capsule Take 300 mg by mouth 2 (two) times a day before breakfast and dinner. Active OMEprazole (PriLOSEC) 20 MG capsule Take 20 mg by mouth daily. Active aspirin (BUFFERIN LOW DOSE) 81 MG tablet Take 81 mg by mouth daily. Active metoPROLOL SUCCINATE (TOPROL-XL) 50 MG 24 hr tablet Take 50 mg by mouth daily. Active gabapentin (NEURONTIN) 600 MG tablet Take 600 mg by mouth nightly. Active coenzyme Q10 (CO Q 10) 100 MG capsule Take 100 mg by mouth daily. Active clopidogrel (PLAVIX) 75 MG tablet Take 75 mg by mouth every evening. Active rosuvastatin (CRESTOR) 10 MG tablet Take 10 mg by mouth nightly. Active diphenhydrAMINE- acetaminophen (TYLENOL PM) 25-500 MG Tab Take 2 tablets by mouth nightly as needed for sleep. Active prednisoLONE acetate (PRED FORTE) 1 % ophthalmic suspension Administer 1 drop into the left eye daily. Active latanoprost (Xalatan) 0.005 % ophthalmic solutionIndicati ons:Primary open angle glaucoma of both eyes, unspecified glaucoma stage Administer 1 drop into the left eye daily. 2.5 mL 1 5 06/26/19 26 Active latanoprost (Xalatan) 0.005 % ophthalmic solutionIndicati ons:Primary open angle glaucoma (POAG) of both eyes, mild stage Administer 1 drop into the left eye daily. 2.5 mL 3 5 12/19/19 25 Active Active Problems Problem Noted Date Diagnosed Date Type 2 diabetes mellitus wit hout complication, without long-term current use of insulin 09/24/2024 Encounters Date Type Department Care Team Description 09/19/2024 Refill [facility], [address] [phone] Lance Núñez MD Primary open angle glaucoma (POAG) of both eyes, mild stage (Primary Dx) from Last 3 Months Social History Tobacco Use Types Packs/Day Years Used Date Smoking Tobacco: Never Smokeless Tobacco: Never Alcohol Use Standard Drinks/Week Comments No 0 (1 standard drink = 0.6 oz pur e alcohol) Comments Unknown Sex and Gender Information Value Date Recorded Sex Assigned at Not on file Legal Sex Female 2:30 PM EDT Gender Identity Not on file Sexual Orientation Not on file Last Filed Vital Signs Vital Sign Reading Time Taken Comments Blood Pressure 132/58 10/06/2020 1:15 PM EDT Pulse 60 10/06/2020 1:15 PM EDT Temperature 36.5 ??C (97.7 ??F) 10/06/2020 11:14 AM E DT Respiratory Rate 10/06/2020 1:15 PM EDT Oxygen Saturation 94% 10/06/2020 1:15 PM EDT Inhaled Oxygen Concentration - - Weight 113 kg (250 lb) 09/29/2020 6:19 PM EDT Height 154.9 cm (5' 1 ) 09/29/2020 6:19 PM EDT Body Mass Index 47.24 09/29/2020 6:19 PM EDT Plan of Treatment Upcoming Encounters Date Type Department Care Team (Late st Contact Info) Description 09/29/2024 9:00 AM EDT [facility] Visit [facility], [address] [phone] Lance Núñez MD [address] [place] [phone] (Fax) Health Maintenance Due Date Last Done Comments Creatinine with GFR 1945 Foot Exam 1945 Hemoglobin A1C 1945 Lipid Panel 1945 DTaP/Tdap/Td Vaccines (1 - Tdap) 02/26/1956 Pneumococcal Vaccines 50+ (1 of 2 - PCV) 02/26/1956 Zoster (Shingles) Vaccine (1 of 2) 1987 DXA Bone Density (Females,Ag es 65 and older) 2002 RSV Vaccine 60 years and old er and Patients (1 - 1-dose 75+ series) 02/26/2012 Influenza Vaccine 01/10/2024 COVID-19 Vaccine ( - 2023-2 5 season) 2024 Ophthalmology Exam 06/26/2025 06/26/2024 Hepatitis B Vaccines Aged Out No long er eligible based on patient's age to complete this topic Medical Devices Implanted Type Area Horticultural Farmworker Device Identifier Shelf Expiration Date Model / Serial / Lot Cornea Dsaek Implanted:Qty : 1 on 03/08/2016 by Lance Núñez MD at [facility] Ophthalmology Left: Eye Other 03/18/2016 [id number] / / Description:Eversight Cornea Precut Eversight Pre-Cut Cornea Eversight - [id number] Implanted:Qty : 1 on 10/06/2020 by Lance Núñez MD at [facility] Tissue Left: Eye EVERSIGHT 10/13/2020 CORNEA PRECUT EVERSIGHT / [id number] / Insurance MEDICARE PART A & B [facility] MEDICARE PART A & B [facility] Advance Directives * Full Code (Latest Code Status on File) Date Activated Date Inactivated Comments 10/06/2020 9:15 AM * Full Code Date Activated Date Inactivated Comments 03/08/2016 8:19 AM 03/08/2016 2:50 PM Care Teams Design Quality Engineer Relationship Specialty Start Date End Date Fidel Lucero MD [address] [place] [address] Dr [place], [place] [address] PCP - General 03/01/16
--- OUTSIDE RECORDS SUMMARY | 2024-09-25 13:31 | XMS_ITS ---
Author Organization [facility] Address [address] [place] [place] [address] Care Team Providers Care Garnett Mechanic Name Role Phone Fidel Lucero MD Primary Care Provider Natalie Munoz Unavailable [phone] Allergies Allergen (clinical drug ingredient) Drug/Non Drug Allergy documented on EMR Reaction Allergy Type Onset Date Status codeine Codeine loopy Drug Allergy Active REASON FOR VISIT At Risk Footcare Medications Medication SIG (Take, Route, Frequency, Duration) Notes Start Date End Date Status HYDROmorphone HCl 2 MG 1 tablet as neede d Orally every 6 hrs Not-Taking hydroCHLOROthiazide Not-Taking Calcium Not-Taking amLODIPine Besy-Benazepril HCl Not-Taki ng Januvia Not-Taking Combigan 0.2-0.5 % 1 drop into affected eye Ophthalmic Twice a day Not-Taking Colcrys 0.6 MG 1 tablet Orally i po qd for 10 days Not-Taking Atorvastatin Calcium 40 MG 1 tablet Orally Once a day for 30 day(s) Not-Taking Zanaflex Once a week Not-Taki ng Doxycycline Monohydrate 100 MG 1 capsule Orally Once a day for 10 days 11/18/2020 Not-Taking Extra-Depth Diabetic Shoes with 3 Pair Custom heat-molded multi-density innersoles Active tylenol PM Active Rosuvastatin Calcium Active Stool Softener Activ e Trulicity 0.75 MG/0.5ML Subcutaneous for 56 Active Metoprolol Succinate 50 MG 1 capsule Orally Once a day Active Metformin & Diet Manage Prod night time Active glipiZIDE 10 MG as directed Orally Active prednisoLONE Active Omeprazole Active Hair Skin Nails Acti ve Furosemide 20 MG Oral for 30 A ctive Eye Drops Active CoQ-10 Active Gabapentin 300 MG 1 capsule Orally Once a day for 30 day(s) Active Voltaren 1 % as directed Externally Active Clopidogrel Bisulfate Active Brimonidine Tartrate 0.2 % Ophthalmic for 50 Active Aspirin Adult Low Strength 81mg Active Allopurinol 100 MG Oral for 90 Active Colcrys 0.6 MG 1 tablet Orally Once a day for 10 days 10/16/2013 Not-Taking Gabapentin Not-Takin g Meclizine HCl 25 MG 1 tablet as needed Orally Once a day Not-Taking Social History Tobacco Use: Social History Observation Description Date Details (start date - stop date) Never Smoker NA - NA Tobacco use other than smoking: Question Answer Notes Are you an other tobacco user? No Tobacco Control (Standard) Question Answer Notes Tobacco use: Nonsmoker Additional Findings: Tobacco non-user Current no nsmoker AUDIT-C (Standard) Question Answer Notes Did you have a drink containing alcohol in the p ast year? No Points 0 Interpretation Negative Vital Signs Height 5 ft 1 in in 07/14/2024 Weight 256 lbs 07/14/2024 BMI 48.37 kg/m2 07/14/2024 Blood pressure systolic 130 mm Hg 07/14/19 25 Blood pressure diastolic 70 mm Hg 025 Procedures Procedure Date Ordered Date Performed Result Body Sit e 98150-ZGZZGRF NAIL, 6 OR MORE 07/14/2024 N/A 21760-WPZI SKIN LESIONS, 2 TO 4 07/14/2024 N/A Encounters Encounter Location Date Provider Diagnosis [facility] [address] [place] [address] 07/14/2024 Natalie Angelo Type 2 diabetes mellitus with diabetic polyneuropathy E11.42 and Tinea unguium B35.1 Assessments Encounter Date Diagnosis (ICD Code) Assessment Notes Treatment Notes Treatment Clinical Notes Section Notes 07/14/2024 Type 2 diabetes mellitus with diabetic polyneuropathy (ICD-10 - E11.42) 07/14/2024 Tinea unguium (ICD-10 - B35.1) Plan Of Treatment Pending Test Test Name Order Date [id number] NAIL, 6 OR MORE 07/14/2024 66990-HADL SKIN LESIONS, 2 TO 4 02/03/20 25 Next Appt Details Follow Up: 3 Months, Reason: Provider Name:Ana Mabry Trini mabry, 10/14/2024 11:15:00 AM, [address] [place] [address], [phone], Provider Name:Natalie mobley, 12/29/2024 11:00:00 AM, [address] [place] [address], [phone], Procedure Notes * Category Sub-Category Detail Notes Debride Nail 6-10 Nail debridement Due to the cl inical pathology outlined in the exam findings, performance of this nail treatment is medically necessary as its management by an unskilled/untrained nonprofessional would put this patients foot and overall health at risk. Therefore, debridement to affected nail(s), as described in exam ( ___ ), was performed exclusively by the physician of record to reduce/remove overall nail length, girth, thickness, subungual debris, and necrotic tissue, by manual and/or electrical means through the use of a nail nipper and/or dremel-type pulp grinder feeder, to a more viable healthy nail plate or bed tissue 6-10 nails in total. Silver nitrate was used for any petechial bleeding as necessary. Definitive antifungal treatment options, both pharmaceutical and surgical, have been reviewed and discussed with the patient. The patient solely prefers the use of intermittent/as needed professional debridement services for their nail condition and understands the need for additional periodic treatments to maintain effectiveness in symptomatic relief - 14230 Keratoma Treatment Parring or Cutting o f Benign Hyperkeratotic Lesion(s) (-56) 2-4 Lesions - Due to the at risk nature of the patients medical condition as documented in the exam findings, performance of this keratoderma treatment is medically necessary as its management by an unskilled/untrained nonprofessional would put this patients foot and overall health at risk. Therefore, the benign hyperkeratotic lesions, (2 ) in total, locations as stated and described in the exam ( sub 1st MTH B/L ), were pared, and/or cut utilizing a sterile 15 blade, tissue nippers, and/or power dremel instrumentation by the physician of record - 31051 Progress Notes * Erica BOATENG ADOB:[birth year] (89 yo F)Acc No.[id number]:07/14/2024 Progress Note Patient:Erica BRIZUELA Provider:?Natalie Angelo DPM :1935???Age:89 Y???Sex:Female D ate:07/14/2024 Address:[address] [place], [place] [phone] Pcp:Fidel Lucero MD Subjective: * Chief Complaints: * ???At Risk Footcare * HPI: ???At Risk footcare:?Pt States Last PCP Visit:?Date?01/29/2024 * ROS:?General/Constitutional:?Nausea?denies.?Vomiting?denies.?Hunger Thirst?denies.?Loss appetite?denies.?Chills?denies.?Fatigue?denies.?Fever?denies.?Night Sweats?denies.?Unexplained weight loss?denies.?Unexplained weight gain?denies.?HEENTM:?Dentures?denies.?Dizziness?denies.?Glasses/contacts?denies.?Retinopathy?de nies.?Blurred/double vision?denies.?TMJ?denies.?Discharge/drainage?denies.?Implants?denies.?Sore throat?denies.?Dental implants?denies.?Hard of hearing ?denies.?Difficulty chewing/swallowing/speaking?denies.?Nose bleeds?denies.?Sore mouth?denies.?Respiratory:?On Oxygen?denies.?Pneumonia/pleurisy?denies.?Bronchitis?denies.?Emphysema?denies.?C oughing?denies.?Cough blood?denies.?Shortness of breath?denies.?Wheezing?denies.?Cardiovascular:?Pacemaker?denies.?MVP?denies.?WPW?denies.?CHF?denies.?Heart attack?denies.?Septal defect?denies.?Rapid beat?denies.?Chest pain ?denies.?Atrial Fib.?denies.?Murmur/Palpitations?denies.?Gastrointestinal:?Hemorrhoids?denies.?Stomach/Abdominal pain?denies.?Dark blood stool?denies.?Irritable bowel ?denies.?Constipation?denies.?Diarrhea?denies.?Hematology:?Swelling?denies.?Clots?denies.?Varicose Veins?denies.?Bruising?denies.?Bleeding problem?denies.?Genitourinary:?Blood urine?denies.?Frequent/Painfu/urination/bladder control?denies.?Kidney stones?denies.?Infection (UTI)?denies.?Nephropathy?denies.?sex trans dis (STD)?denies.?Prostate?denies.?Musculoskeletal:?Hammertoes?denies.?Bunions?denies.?Back Pain?denies.?Muscle Cramps/ Resting?denies.?Muscle cramps / walking?denies.?Generalized aches and pains?denies.?Weakness?denies.?Integ.:?[place]?denies.?Scars?denies.?Corns/calluses?denies.?Ingrown nails?denies.?Painful nails?denies.?Open Sores?denies.?Rashes?denies.?Neurologic:?Difficulty sleeping?denies.?Brain disorder?denies.?Numbness?denies.?Balance trouble?denies.?Confusion?denies.?Fainting/blackouts?denies.?Tingling?denies.?Tr emors?denies.? * Medical History:? 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 * Social History:?Tobacco Use:?Tobacco use other than smoking?Are you an other tobacco user??No ?Tobacco Control (Standard)?Tobacco use:?Nonsmoker ?Additional Findings: Tobacco non-user?Current nonsmoker ???Drugs/Alcohol:?Drugs?Have you used drugs other than those for medical reasons in the past 12 months??No ???Miscellaneous:?Caffeine: yes, frequency:, 2 cups per day coffee. ?Children: yes. ?Exercise: yes, walking, occasional. ?Marital status: . ?Occupation: Retired. ???Drug/Alcohol:?AUDIT-C (Standard)?Did you have a drink containing alcohol in the past year??No ?Points?0 ?Interpretation?Negative * Medications:?TakingVoltaren 1 % Gel as directed Externally Allopurinol 100 MG Tablet Oral Aspirin Adult Low Strength 81mg Brimonidine Tartrate 0.2 % Solution Ophthalmic Clopidogrel Bisulfate CoQ-10 Eye Drops Furosemide 20 MG Tablet Oral Hair Skin Nails Gabapentin 300 MG Capsule 1 capsule Orally Once a day glipiZIDE 10 MG Tablet as directed Orally Metformin & Diet Manage Prod , Notes to Pharmacist: night timeMetoprolol Succinate 50 MG Capsule ER 24 Hour Sprinkle 1 capsule Orally Once a day Omeprazole prednisoLONE Rosuvastatin Calcium tylenol , Notes to Pharmacist: PMTrulicity 0.75 MG/0.5ML Solution Pen-injector Subcutaneous Stool Softener Extra-Depth Diabetic Shoes with 3 Pair Custom heat-molded multi-density innersoles Taking Voltaren 1 % Gel as directed Externally Taking Allopurinol 100 MG Tablet Oral Taking Aspirin Adult Low Strength 81mg Taking Brimonidine Tartrate 0.2 % Solution Ophthalmic Taking Clopidogrel Bisulfate Taking CoQ-10 Taking Eye Drops Taking Furosemide 20 MG Tablet Oral Taking Hair Skin Nails Taking Gabapentin 300 MG Capsule 1 capsule Orally Once a day Taking glipiZIDE 10 MG Tablet as directed Orally Taking Metformin & Diet Manage Prod , Notes to Pharmacist: night timeTaking Metoprolol Succinate 50 MG Capsule ER 24 Hour Sprinkle 1 capsule Orally Once a day Taking Omeprazole Taking prednisoLONE Taking Rosuvastatin Calcium Taking tylenol , Notes to Pharmacist: PMTaking Trulicity 0.75 MG/0.5ML Solution Pen-injector Subcutaneous Taking Stool Softener Taking Extra-Depth Diabetic Shoes with 3 Pair Custom heat-molded multi-density innersoles Not-Taking/PRNZanaflex , Notes to Pharmacist: Once a weekAtorvastatin Calcium 40 MG Tablet 1 tablet Orally Once a day Colcrys 0.6 MG Tablet 1 tablet Orally i po qd Combigan 0.2-0.5 % Solution 1 drop into affected eye Ophthalmic Twice a day Doxycycline Monohydrate 100 MG Capsule 1 capsule Orally Once a day amLODIPine Besy-Benazepril HCl Calcium hydroCHLOROthiazide Januvia HYDROmorphone HCl 2 MG Tablet 1 tablet as needed Orally every 6 hrs Colcrys 0.6 MG Tablet 1 tablet Orally Once a day Meclizine HCl 25 MG Tablet 1 tablet as needed Orally Once a day Gabapentin Medication List reviewed and reconciled with the patientNot-Taking/PRN Zanaflex , Notes to Pharmacist: Once a weekNot-Taking/PRN Atorvastatin Calcium 40 MG Tablet 1 tablet Orally Once a day Not-Taking/PRN Colcrys 0.6 MG Tablet 1 tablet Orally i po qd Not-Taking/PRN Combigan 0.2-0.5 % Solution 1 drop into affected eye Ophthalmic Twice a day Not-Taking/PRN Doxycycline Monohydrate 100 MG Capsule 1 capsule Orally Once a day Not-Taking/PRN amLODIPine Besy- Benazepril HCl Not-Taking/PRN Calcium Not-Taking/PRN hydroCHLOROthiazide Not-Taking/PRN Januvia Not-Taking/PRN HYDROmorphone HCl 2 MG Tablet 1 tablet as needed Orally every 6 hrs Not-Taking/PRN Colcrys 0.6 MG Tablet 1 tablet Orally Once a day Not-Taking/PRN Meclizine HCl 25 MG Tablet 1 tablet as needed Orally Once a day Not-Taking/PRN Gabapentin Medication List reviewed and reconciled with the patient * Allergies:?Codeine: loopy Objective: * Vitals:?Ht: 5 ft 1 in, Wt:25 6, BMI: 48.37, Shoe size:10, BP:130/70mm Hg, BS:114, Wt-k.12 kg. * ???Past Orders: ???Lab:HEMOGLOBIN A1C (GLYCO HEMOGLOBIN) (Order Date - 01/30/2024) (Collection Date & Time - 01/29/2024) ? Value Reference Range ?HEMOGLOBIN A1C % (HH) 7.2 * Examination: ???Ophthalmology Referral: ?DIABETES EYE EXAM?Procedure Performed:?No ?Eye Exam not performed:?No reason specified?Neurological: ?SENSORY:? Neurological exam demonstrates, reduced light touch sensation, reduced sharp/dull pin prick discrimination , B/L, 5.07 monofilament test performed at plantar aspects of 5 varied sites per foot shows sensation, reduced , B/L.?Nails: ?NAILS are:?Elongated, overgrown, dystrophic, lytic, greater than 3mm thick, discolored and friable with crumbly malodorous subungual debris, TA, T1, T2, T3, T4, T5, T6, T7, T8, T9.?Dermatologic: ?SKIN FINDINGS:?Skin exam reveals Keratotic lesion(s) located at sub 1st MTH B/L.?Vascular: ?DP PULSES (B):?1/4, B/L.?PT PULSES (B):? 1/4, B/L.?CAPILLARY FILL TIME:?3 secs. per digit. B/L.?TROPHIC CONDITION-TEXTURE/ELASTICITY/TURGOR/HAIR GROWTH (B):?normal.?TEMPERTURE GRADIENT (C):?normal.?PIGMENTATION:?normal.?EDEMA (C):?/, B/L, feet, ankle(s).?Orthopedic: ?MUSCLE STRENGTH:?5/5 all groups in a symmetrical fashion, B/L.?General Examination: ?GENERAL APPEARANCE:?Reveals a pleasant, alert, well nourished, well- developed, well hydrated individual, who demonstrates proper attention to hygiene/body habitus, and is in no acute distress, Pt serves as own historian for office visit today.?ORIENTED:?person, place, and time.? Assessment: * Assessment: 1.?Type 2 diabetes mellitus with diabetic polyneuropathy - E11.42 (Primary)???2.?Tinea unguium - B35.1??? Plan: * Treatment: * Procedures:?Debride Nail 6-10:?Nail debridement?Due to the clinical pathology outlined in the exam findings, performance of this nail treatment is medically necessary as its management by an unskilled/untrained nonprofessional would put this patients foot and overall health at risk. Therefore, debridement to affected nail(s), as described in exam ( ___ ), was performed exclusively by the physician of record to reduce/remove overall nail length, girth, thickness, subungual debris, and necrotic tissue, by manual and/or electrical means through the use of a nail nipper and/or dremel-type pulp grinder feeder, to a more viable healthy nail plate or bed tissue 6-10 nails in total. Silver nitrate was used for any petechial bleeding as necessary. Definitive antifungal treatment options, both pharmaceutical and surgical, have been reviewed and discussed with the patient. The patient solely prefers the use of intermittent/as needed professional debridement services for their nail condition and understands the need for additional periodic treatments to maintain effectiveness in symptomatic relief - 85222.?Keratoma Treatment:?Parring or Cutting of Benign Hyperkeratotic Lesion(s)?(-56) 2-4 Lesions - Due to the at risk nature of the patients medical condition as documented in the exam findings, performance of this keratoderma treatment is medically necessary as its management by an unskilled/untrained nonprofessional would put this patients foot and overall health at risk. Therefore, the benign hyperkeratotic lesions, (2 ) in total, locations as stated and described in the exam ( sub 1st MTH B/L ), were pared, and/or cut utilizing a sterile 15 blade, tissue nippers, and/or power dremel instrumentation by the physician of record - 13689.? * Procedure Codes:?21094 DEBRI DE NAIL, 6 OR MORE, Modifiers: XS 27751 TRIM SKIN LESIONS, 2 TO 4, Modifiers: XS * Follow Up:?3 Months * Images: * Sign off status: Completed true * Provider:?Natalie Angelo DPM Date:?0 07/14/2024 Generated for Ishan rincon/Chad/Juan on:?09/25/2024 01:31 PM EDT History and Physical Notes * HPI (History of Present Illness) Category Sub-Category Detail Notes Category Not es At Risk footcare Pt States Last PCP Visit: Date: 4 Examination Category Sub-Category Detail Notes Category Not es Neurological SENSORY: Neurological exa m demonstrates, reduced light touch sensation, reduced sharp/dull pin prick discrimination , B/L, 5.07 monofilament test performed at plantar aspects of 5 varied sites per foot shows sensation, reduced , B/L Dermatologic SKIN FINDINGS: Skin exam reveal s Keratotic lesion(s) located at sub 1st MTH B/L Orthopedic MUSCLE STRENGTH: 5/5 all groups in a symmetrical fashion, B/L General Examination GENERAL APPEARANCE: Reveals a pleasant, alert, well nourished, well-developed, well hydrated individual, who demonstrates proper attention to hygiene/body habitus, and is in no acute distress, Pt serves as own historian for office visit today ORIENTED: person, place, and t alison Ophthalmology Referral DIABETES EYE EXAM Procedure Perform ed:: No Eye Exam not performed:: No reason speci fied Vascular DP PULSES (B): 1/4, B/L PT PULSES (B): 1/4, B/L CAPILLARY FILL TIME: 3 secs. per digit. B/L TEMPERTURE GRADIENT (C): normal TROPHIC CONDITION-TEXTURE/ELASTICITY/TUR GOR/HAIR GROWTH (B): normal EDEMA (C): 1/4, B/L, feet, ankl e(s) PIGMENTATION: normal Nails NAILS are: Elongated, overg rown, dystrophic, lytic, greater than 3mm thick, discolored and friable with crumbly malodorous subungual debris, TA, T1, T2, T3, T4, T5, T6, T7, T8, T9
--- OUTSIDE RECORDS SUMMARY | 2024-09-25 13:31 | XMS_ITS ---
Author Organization [facility] Address [address] [place] [phone] Care Team Providers Care Shower Attendant Name Role Phone Nic IVORY, Fidel Primary Care Provider Natalie Munoz [phone] Encounters Encounter Location Date Provider Diagnosis [address] [address] 05/15/2024 Natalie Angelo Plan Of Treatment Next Appt Details Provider Name:Ana mabry, 10/14/2024 11:15:00 AM, [address] [place] [address], [phone], Provider Name:Natalie mobley, 12/29/2024 11:00:00 AM, [address] [place] [address], [phone], Progress Notes * Erica BOATENG ADOB:[birth year] (89 yo F)Acc No.[id number]:05/15/2024 Progress Note Patient:?Erica BOATENG Provider:?Natalie Angelo DPM :1935???Age:89 Y???Sex:Female D ate:05/15/2024 Address:[address] [place] [phone] Pcp:Fidel Lucero MD Subjective: * Chief Complaints: * ??? * Medical History:? Objective: * Vitals:? Assessment: Plan: * Treatment: * Images: * The named appointment provid er may or may not be the originator of this progress note, and it is not deemed complete until electronically signed by the appointment provider. Sign off status: Pending * Provider:?Natalie Angelo DPM Date:?1 07/16/2023 Generated for Ishan rincon/Chad/Juan on:?09/25/2024 01:30 PM EDT
--- OUTSIDE RECORDS SUMMARY | 2024-09-25 13:31 | XMS_ITS | Clinical Summary ---
Author Organization [address] [place] [address] [place] [phone] Phone Care Team Providers Care Commercial Marketing Specialist Name Role Phone Fidel Lucero MD Primary Care Provider [phone] Allergies Active Allergy Reactions Criticality Noted Date Comments Adhesive Tape-Silicones 05/03/2024 Codeine 05/03/2024 Medications cholecalciferol (VITAMIN D-3) 25 mcg (1,000 unit) capsule Take 1 Tablet by mouth daily. Active allopurinoL (ZYLOPRIM) 100 mg tablet Take 100 mg by mouth daily. Active aspirin 81 mg EC tablet Take 81 mg by mouth daily. Active dulaglutide (Trulicity) 0.75 mg/0.5 mL pen injector injection Subcutaneous for 56 Active furosemide (LASIX) 20 mg tablet Take 1 tablet (20 mg total) by mouth 1 (one) time each day. 4 Active gabapentin (NEURONTIN) 300 mg capsule 2 (two) times a day. I tab in the morning and 2 tablets at night. Active glipiZIDE (GLUCOTROL) 10 mg tablet Take 10 mg by mouth daily. 2 tabs in the am Active metFORMIN (GLUCOPHAGE) 500 mg/5 mL solution oral solution Take 5 mL (500 mg total) by mouth 1 (one) time each day in the morning. Active metoprolol succinate (TOPROL-XL) 50 mg 24 hr tablet Take 50 mg by mouth daily. Active nitroglycerin (NITROSTAT) 0.[address] 1 tablet under the tongue every 5 minutes as needed for Chest pain. Not to exceed 3 doses in 15 min period. Call 911 1 Active rosuvastatin (CRESTOR) 10 mg tablet Take 1 tablet (10 mg total) by mouth 1 (one) time each day. 3 Active coenzyme Q-10 100 mg capsule 2 capsules (200 mg total) 1 (one) time each day. Active multivitamin with minerals tablet Take 2 tablets by mouth 1 (one) time each day. Active Active Problems Problem Noted Date Diagnosed Date CHB (complete heart block) ([facility], [facility] V28) 02/08/2023 Hyperlipidemia 03/02/2021 Overview (05/03/2024): Last Assessment & Plan: I do not have a recent fasting lipid profile. I gave the patient a slip to have her cholesterol levels updated. At this time she will continue on her current dose of rosuvastatin 10 mg and be mindful of her dietary fat intake. Goal LDL less than 55 in the setting of coronary artery disease. Hypertension 03/02/2021 Overview (05/03/2024): Last Assessment & Plan: Blood pressure well-controlled during today's exam with a reading of 124/64. I have made no changes to her medications. She will continue with diet lifestyle modification to help further assist in lowering blood pressure. Encouraged to follow low-salt low-fat diet, make purposeful strides towards weight loss, and engage in routine aerobic exercise. S/P placement of cardiac pacemaker 03/02/2021 Overview (05/03/2024): 03/07/20 @ [facility] with Dr. Murphy Atrioventricular block, complete ([facility] V24, [facility] [place] V28) 02/26/2021 Overview (05/03/2024): [employer] Sa[employer]l dual chamber pacemaker placed 02/2020 Required lead extraction and replacement in 04/2020 Last Assessment & Plan: Most recent device check from June 2023 revealed normal device function. No new alerts or arrhythmias noted. Estimated battery longevity greater than 7 years. A paced 2.5% and V paced 81%. Coronary artery disease invo lving [place] coronary artery of [place] heart without angina pectoris 02/26/2021 Overview (05/03/2024): Three-vessel disease managed medically pharmacologic nuclear stress test in 03/2021 showed anterior/anterolateral ischemia vs shifting breast attenuation given body habitus, a focal anteroseptal defect which appears to be a mix of infarct and ischemia in the distal LAD distribution wtih normal LVEF 68% and normal TID ratio of 1.05. Last Assessment & Plan: Patient denies any chest pain or pressure. She continues on guideline directed medical therapy of Crestor, aspirin and metoprolol. She has not had to use her sublingual nitroglycerin. Instructed to call 911 or go to the emergency room should she begin to experience chest pain or pressure lasting greater than 10 minutes that is not resolved with rest. Takotsubo cardiomyopathy 02/26/2021 Overview (05/03/2024): LVEF initially 30-35% in February 2020 Normalized to 60% with basal inferior wall and all apical segments akinetic 2 weeks later Last Assessment & Plan: Patient expresses concern about the potential for broken heart syndrome as she endorses being under a tremendous amount of stress. In light of her symptoms of profound fatigue and increased breathlessness, I am going to update echocardiogram to further evaluate Encounters Date Type Department Care Team Description 09/12/2024 3:35 PM EDT Ancillary Procedure [facility] [address] [place] [address] 07/15/2024 2:25 PM EST Ancillary Procedure [facility] - [address] [place] [address] 07/07/2024 Telephone [facility] - [address] [place] [address] Adina Tamayo MA from Last 3 Months Surgical History Surgery Date Site/Laterality Comments CARDIAC CATHETERIZATION 02/2020 PROCEDURE: HISTORICAL CARDIAC CATH Medical History Medical History Date Comments Diabetes mellitus, type II ( CMS/HCC V24, CMS/HCC V28) DX:Diabetes mellitus, type I I (HCC) Arthritis DX:Arthritis Family History Medical History Relation Name Comments Heart attack Brother Relation Name Status Comments Brother Social History Tobacco Use Types Packs/Day Years Used Date Smoking Tobacco: Never Smokeless Tobacco: Never Alcohol Use Standard Drinks/Week Comments No 0 (1 standard drink = 0.6 oz pur e alcohol) Comments Unknown Sex and Gender Information Value Date Recorded Sex Assigned at Not on file Legal Sex Female 11:56 PM EST Gender Identity Not on file Sexual Orientation Not on file Obstetrics History Last Filed Vital Signs Vital Sign Reading Time Taken Comments Blood Pressure 140/78 06/24/2024 3:15 PM EST Pulse 72 06/24/2024 3:15 PM EST Temperature - - Respiratory Rate - - Oxygen Saturation 96% 06/24/2024 3:15 PM EST Inhaled Oxygen Concentration - - Weight 121 kg (266 lb) 06/24/2024 3:15 PM EST Height 152.4 cm (5') 06/24/2024 3:15 PM EST Body Mass Index 51.95 06/24/2024 3:15 PM EST Plan of Treatment Upcoming Encounters Date Type Department Care Team (Late st Contact Info) Description 01/05/2025 2:40 PM EDT Office Visit [facility] [address] [place] [facility] [address] [place] [address] Montserrat Ghosh, LUC 300 [facility] [address] [place] [address] Health Maintenance Due Date Last Done Comments Diabetes: Annual Foot Exam 1945 Diabetes: Annual Retina Eye Exam 1945 DTaP,Tdap,and Td Vaccines (1 - Tdap) 02/26/1956 Pneumococcal Vaccine: 50+ Years (1 of 1 - PCV) 1987 Zoster Vaccines (1 of 2) 1987 RSV Immunization Adult Patients (1 - 1-dose 75+ series) 02/26/2012 Cholesterol Screening (Lipid Panel) 05/20/2022 Depression Screening 05/20/2022 Falls Risk Assessment 05/20/2022 Osteoporosis Screening (Bone Density Screening) 05/20/2022 Social Influencers of Health Screening 05/20/2022 Hypertension/CHF/CAD Annual BMP Blood Test 05/21/2022 Medicare Annual Wellness Visit 03/27/2023 03/27/2022 COVID-19 Vaccine (2023-2 5 season) 2024 04/03/2023, 08/05/2020, 07/08/2020 Diabetes: Blood Sugar Contro l Test (HGBA1C) 07/04/2024 Influenza Vaccine (Season Ended) 2025 03/27/2022, 04/08/2021, 03/16/2020 HIB Vaccines Aged Out No longer eligi ble based on patient's age to complete this topic HPV Vaccines Aged Out No longer eligi ble based on patient's age to complete this topic Hepatitis A Vaccines Aged Out No long er eligible based on patient's age to complete this topic Hepatitis B Vaccines Aged Out No long er eligible based on patient's age to complete this topic IPV Vaccines Aged Out No longer eligi ble based on patient's age to complete this topic MMR Vaccines Aged Out No longer eligi ble based on patient's age to complete this topic Meningococcal ACWY Vaccine Aged Out N o longer eligible based on patient's age to complete this topic Meningococcal B Vaccine Aged Out No l onger eligible based on patient's age to complete this topic RSV Immunization Patients Under 20 months Aged Out No longer eligible b ased on patient's age to complete this topic Varicella Vaccines Aged Out No longer eligible based on patient's age to complete this topic Medical Devices Implanted Type Area Underwriting Support Specialist Device Identifier Shelf Expiration Date Model / Serial / Lot Jayne-Aziza 2272 Assurity Mri(Tm) [id number] Implanted: (Quantity not on file) Cardiac Pacemaker DAVEY [email or web address]- [employer] 2272 ASSURITY MRI(TM) / [id number] / Procedures Procedure Name Priority Date/Time Associated Diagnosis Comments CARDIAC DEVICE CHECK- REMOTE- MURJ Routine 09/12/2024 3:34 PM EDT CARDIAC DEVICE CHECK- REMOTE- MURJ Routine 07/15/2024 2:21 PM EST from Last 3 Months Results * Cardiac device check - Remote- MURJ (09/12/2024 3:34 PM EDT) Only the most recent of2 resultswithin the time period is included. [facility] Date Time Interrogation Session [id number] CV DEVICE CHECK Type Interrogation Session Remote Scheduled CV DEVICE CHECK Implantable Pulse Generator Underwriting Support Specialist [employer]Sa[employer]l CV DEVICE CHECK Implantable Pulse Generator Type IPG CV DEVICE CHECK Implantable Pulse Generator Model 2272 Assurity MRI(TM) CV DEVICE CHECK Implantable Pulse Generator Serial Number [id number] CV DEVICE CHECK Implantable Pulse Generator Implant Date 20200227 CV DEVICE CHECK Battery Remaining Percentage 63.00 CV DEVICE CHECK Battery Remaining Longevity 81.0 CV DEVICE CHECK Battery Voltage 2.990 CV D EVICE CHECK Battery PANEL EDGE SEALER Trigger 2.600 CV DEVICE CHECK Battery Status Middle of Service CV DEVICE CHECK Peter Statistic RA Percent Paced 22.00 CV DEVICE CHECK Peter Statistic RV Percent Paced 92.00 CV DEVICE CHECK Atrial Tachy Statistic AT/AF [place] Percent 1.00 CV DEVICE CHECK Lead Channel Sensing Intrinsic Amplitude 1.300 CV DEVICE CHECK Lead Channel Setting Sensing Sensitivity 0.30 CV DEVICE CHECK Lead Channel Impedance Value 440 CV DEVICE CHECK Lead Channel Pacing Threshold Amplitude 0.500 CV DEVICE CHECK Lead Channel Pacing Threshold Pulse Width 0.5 CV DEVICE CHECK Lead Channel RA Pacing Threshold Date 2024-04-01 CV DEVICE CHECK Lead Channel Setting Pacing Amplitude 1.500 CV DEVICE CHECK Lead Channel Setting Pacing Pulse Width 0.5 CV DEVICE CHECK Lead Channel Sensing Intrinsic Amplitude 12.000 CV DEVICE CHECK Lead Channel Setting Sensing Sensitivity 0.50 CV DEVICE CHECK Lead Channel Impedance Value 610 CV DEVICE CHECK Lead Channel Pacing Threshold Amplitude 0.500 CV DEVICE CHECK Lead Channel Pacing Threshold Pulse Width 0.5 CV DEVICE CHECK Lead Channel RV Pacing Threshold Date 2024-04-01 CV DEVICE CHECK Lead Channel Setting Pacing Amplitude 0.750 CV DEVICE CHECK Lead Channel Setting Pacing Pulse Width 0.5 CV DEVICE CHECK Peter Setting Mode (NBG Code) DDD CV DEVICE CHECK Peter Setting Lower Rate Limit 60 CV DEVICE CHECK Peter Setting AT Mode Switch Rate 180 CV DEVICE CHECK Peter Setting Maximum Tracking Rate 120 CV DEVICE CHECK Peter Setting Maximum Sensor Rate 120 CV DEVICE CHECK Peter Setting PAV Delay 200 CV DEVICE CHECK Peter Setting ROQUE Delay 150 CV DEVICE CHECK Date of Service 2024-04-12 CV DEVICE CHECK Anatomical Region Laterality Modality Device Interroga tion 04/01/2024 4:00 AM EDT Impressions 04/05/2024 3:47 PM EDT Normal Remote: With Events * Normal Device Function * Events or Alerts: 1 PAF / 12 seconds / No OAC * Battery: Battery is at 63%, 6.75 yrs * Sensing, impedance and thresholds reviewed * Programmed parameters reviewed * Presenting rhythm reviewed * Heart Rate Histograms reviewed Narrative Procedure Note Vidya Murphy MD - 09/12/2024 IMPRESSION: Normal Remote: With Events * Normal Device Function * Events or Alerts: 1 PAF / 12 seconds / No OAC * Battery: Battery is at 63%, 6.75 yrs * Sensing, impedance and thresholds reviewed * Programmed parameters reviewed * Presenting rhythm reviewed * Heart Rate Histograms reviewed us Vidya Murphy MD CV IMPLANTABLE CARDIAC DEV ICE PROCEDURES Final Result from Last 3 Months Insurance MEDICARE [facility] Care Teams Commercial Marketing Specialist Relationship Specialty Start Date End Date Fidel Lucero MD [address] [place] [address] Dr Doss [place] PCP - General Manager Mechanical Maintenance 11/28/13
== END 2024-09-25 12:52 | disposition home or self-care (01) ==
LOC: HO.HMCHD 11:01
PROVIDERS: PCP Internal Medicine; Visit Provider Internal Medicine
DX: E11.69 Type 2 diabetes mellitus with other specified complication (principal); E78.5 Hyperlipidemia, unspecified; E04.2 Nontoxic multinodular goiter; M17.0 Bilateral primary osteoarthritis of knee

== ENCOUNTER → 2024-09-25 11:00 | Outpatient (BNVA) | payer MEDICARE, SELFPAY | PROVIDERS: PCP Internal Medicine; Visit Provider Internal Medicine | DX: I25.10 Atherosclerotic heart disease of native coronary artery without angina pectoris (principal); E11.22 Type 2 diabetes mellitus with diabetic chronic kidney disease; I12.9 Hypertensive chronic kidney disease with stage 1 through stage 4 chronic kidney disease, or unspecified chronic kidney disease; E11.69 Type 2 diabetes mellitus with other specified complication; E78.5 Hyperlipidemia, unspecified; E04.2 Nontoxic multinodular goiter; M17.0 Bilateral primary osteoarthritis of knee; N18.9 Chronic kidney disease, unspecified | CPT/HCPCS: 96127; 99202 ==

== ENCOUNTER 2024-09-29 07:12 | Outpatient (REF) | payer MEDICARE, SELFPAY ==
--- OUTSIDE RECORDS SUMMARY | 2024-09-29 07:15 | XMS_ITS ---
Author Organization [facility] Address [address] [place] [phone] Care Team Providers Care Paper Cleaner Name Role Phone Fidel Lucero MD Primary Care Provider Natalie Munoz [phone] REASON FOR VISIT same day rs 05/15/24 Encounters Encounter Location Date Provider Diagnosis [facility] [address] [address] 05/15/2024 Natalie Angelo Plan Of Treatment Next Appt Details Provider Name:Ana mabry, 10/14/2024 11:15:00 AM, [address] [place] [address], [phone], Provider Name:Natalie mobley, 12/29/2024 11:00:00 AM, [address] [place] [address], [phone], Progress Notes * Erica BOATENG ADOB:[birth year] (89 yo F)Acc No.[id number]:05/15/2024 Patient:?Erica BOATENG :1935???Age:89 Y???Sex:Female Address:[address] [place] [address] 7, [place] [address] * true * Date:? Generated for Ishan rincon/Chad/eTransmitting on:?09/29/2024 07:14 AM EDT
--- OUTSIDE RECORDS SUMMARY | 2024-09-29 07:15 | XMS_ITS ---
Author Organization [facility] Address [address] [place] [phone] Care Team Providers Care Tube Heater Name Role Phone Nic IVORY, Fidel Primary Care Provider Natalie Munoz [phone] Encounters Encounter Location Date Provider Diagnosis [address] [address] 05/15/2024 Natalie Angelo Plan Of Treatment Next Appt Details Provider Name:Ana mabry, 10/14/2024 11:15:00 AM, [address] [place] [address], [phone], Provider Name:Natalie mobley, 12/29/2024 11:00:00 AM, [address] [place] [address], [phone], Progress Notes * Erica BOATENG ADOB:[birth year] (89 yo F)Acc No.[id number]:05/15/2024 Progress Note Patient:?Erica BOATENG Provider:?Natalie Angelo DPM :1935???Age:89 Y???Sex:Female D ate:05/15/2024 Address:[address] [place], [place] [phone] Pcp:Fidel Lucero MD Subjective: * Chief Complaints: [...] DPM Date:?1 07/16/2023 Generated for Ishan rincon/Chad/Juan on:?09/29/2024 07:15 AM EDT
--- OUTSIDE RECORDS SUMMARY | 2024-09-29 07:15 | XMS_ITS | Clinical Summary ---
Author Organization [address] [place] [address] [place] [phone] Phone Care Team Providers Care Pairing Machine Operator Name Role Phone Fidel Lucero MD Primary Care Provider [phone] Allergies Active Allergy Reactions Criticality Noted Date [...] Date Diagnosed Date CHB (complete heart block) ([facility] V24, CMS/[facility] V28) 02/08/2023 Hyperlipidemia 03/02/2021 Overview (05/03/2024): Last [...] cardiac pacemaker 03/02/2021 Overview (05/03/2024): 03/07/20 @ [facility] with Dr. Murphy Atrioventricular block, complete ([facility] V24, C [place]/[facility] V28) 02/26/2021 Overview (05/03/2024): [employer] dual chamber pacemaker placed 02/2020 Required lead extraction and replacement in 04/2020 Last Assessment & Plan: Most recent device check from June 2023 revealed normal device function. No new alerts or arrhythmias noted. Estimated battery longevity greater than 7 years. A paced 2.5% and V paced 81%. Coronary artery disease invo lving [place] coronary artery of [place] heart without angina pectoris 02/26/2021 Overview (05/03/2024): [...] Description 09/12/2024 3:35 PM EDT Ancillary Procedure [facility] [address] [place] [address] 07/15/2024 2:25 PM EST Ancillary Procedure [facility] [address] [place] [address] 07/07/2024 Telephone [facility] [address] [place] [address] Adina Tamayo MA from Last 3 Months [...] Description 01/05/2025 2:40 PM EDT Office Visit [facility] [address] [facility] 102 [place] [address] Montserrat Ghosh, LUC 300 [facility] [address] [place] [address] Health Maintenance Due Date Last Done Comments [...] this topic Medical Devices Implanted Type Area Personnel Manager Device Identifier Shelf Expiration Date Model / Serial / Lot Jayne-Aziza 2272 Assurity Mri(Tm) [id number] Implanted: (Quantity not on file) Cardiac Pacemaker DAVEY [employer]- [employer] 2272 ASSURITY MRI(TM) / [id number] / Procedures Procedure Name Priority Date/Time Associated Diagnosis Comments CARDIAC DEVICE CHECK- REMOTE- MURJ Routine 09/12/2024 3:34 PM EDT CARDIAC DEVICE CHECK- REMOTE- MURJ Routine 07/15/2024 2:21 PM EST from Last 3 Months Results * Cardiac device check - Remote- MURJ (09/12/2024 3:34 PM EDT) Only the most recent of2 resultswithin the time period is included. [facility] Date Time Interrogation Session [id number] CV DEVICE CHECK Type Interrogation Session Remote Scheduled CV DEVICE CHECK Implantable Pulse Generator Personnel Manager St[employer]Saúl CV DEVICE CHECK Implantable Pulse Generator Type IPG CV DEVICE CHECK Implantable Pulse Generator Model 2272 Assurity MRI(TM) CV DEVICE CHECK Implantable Pulse Generator Serial Number [id number] CV DEVICE CHECK Implantable Pulse Generator Implant Date 20200227 CV DEVICE CHECK Battery Remaining Percentage 63.00 CV DEVICE CHECK Battery Remaining Longevity 81.0 CV DEVICE CHECK Battery Voltage 2.990 CV D EVICE CHECK Battery MILL OPERATOR HEAD Trigger 2.600 CV DEVICE CHECK Battery Status Middle of Service CV DEVICE CHECK Peter Statistic RA Percent Paced 22.00 CV DEVICE CHECK Peter Statistic RV Percent Paced 92.00 CV DEVICE CHECK Atrial Tachy Statistic AT/AF [place] Percent 1.00 CV DEVICE CHECK Lead Channel [...] Result from Last 3 Months Insurance MEDICARE [facility] Care Teams Pairing Machine Operator Relationship Specialty Start Date End Date Fidel Lucero MD [address] [place] [address] Dr Doss [place] PCP - General Core Blower Operator 11/28/13
--- OUTSIDE RECORDS SUMMARY | 2024-09-29 07:15 | XMS_ITS | Clinical Summary ---
Author Organization [facility] Address [address] [place] [address] Care Team Providers Care Heel Cementer Machine Name Role Phone Fidel Lucero MD Primary Care Provider [phone] Allergies Active Allergy Reactions Criticality Noted Date [...] Team Description 09/19/2024 Refill [facility], [address] [phone] Lance Núñez MD Primary open angle glaucoma [...] AM EDT Office Visit [facility], [address] [phone] Lance Núñez MD [address] [place] [phone] (Fax) Health Maintenance Due Date Last Done [...] this topic Medical Devices Implanted Type Area Fuels Engineer Device Identifier Shelf Expiration Date Model / Serial / Lot Cornea Dsaek Implanted:Qty : 1 on 03/08/2016 by Lance Núñez MD at [facility] Op[facility] Left: Eye Other 03/18/2016 [id number] / / Description:Eversight Cornea Precut Eversight Pre-Cut Cornea Eversight - [id number] Implanted:Qty : 1 on 10/06/2020 by Lance Núñez MD at [facility] Tissue Left: Eye EVERSIGHT 10/13/2020 CORNEA PRECUT EVERSIGHT / [id number] / Insurance MEDICARE PART A & B [facility] MEDICARE PART A & B [facility] Advance Directives * Full Code (Latest Code Status on File) Date Activated Date Inactivated Comments 10/06/2020 9:15 AM * Full Code Date Activated Date Inactivated Comments 03/08/2016 8:19 AM 03/08/2016 2:50 PM Care Teams Heel Cementer Machine Relationship Specialty Start Date End Date Fidel Lucero MD [address] [place] [address] Dr Doss, DAINA [address] PCP - General 03/01/16
--- OUTSIDE RECORDS SUMMARY | 2024-09-29 07:15 | XMS_ITS | Encounter Summary ---
Author Organization [facility] Address [address] [place] [address] Care Team Providers Care [place] [employer] Name Role Phone Fidel Lucero MD Primary Care Provider [phone] Encounter Details Date Type Department Care Team (Late Contact Info) Description 03/07/2016 Prep for Surgery [facility] [address] [place] [address] Lance Núñez MD [address] [place] [phone] Social History Tobacco Use Types Packs/Day Years [...] AM EDT Office Visit [facility], [address] [phone] Lance Núñez MD [address] [place] [phone] (Fax) documented as of this encounter Visit Diagnoses Not on filedocumented in this encounter Care Teams [place] [employer] Relationship Specialty Start Date End Date Fidel Lucero MD [address] [place] [address] [place] [address] PCP - General 03/01/16 documented as of this encounter
--- OUTSIDE RECORDS SUMMARY | 2024-09-29 07:15 | XMS_ITS | Patient Health Record ---
Author Organization [facility] Address [address] [place] [address] Care Team Providers Care Cafeteria Helper Name Role Phone Fidel Lucero MD Primary Care Provider UnavailNatalie Ch Unavailable [phone] Eldon Dockery Unavailable [phone] Allergies Allergen (clinical drug ingredient) Drug/Non Drug Allergy documented on EMR Reaction Allergy Type Onset Date Status codeine Codeine loopy Drug Allergy Active Results Component Value Reference Range Notes HEMOGLOBIN A1C (GLYCOHEMOGLO BIN) Reviewed date:01/30/2024 11:20:08 AM Interpretation: Performing Lab: Notes/Report: HEMOGLOBIN A1C % (HH) 7.2 Reason For Referral No Information Medications Medication SIG (Take, Route, Frequency, Duration) Notes Start Date End Date Status Hair Skin Nails Acti ve Extra-Depth Diabetic Shoes with 3 Pair Custom heat-molded multi-density innersoles Active Furosemide 20 MG Oral for 30 A ctive Eye Drops Active CoQ-10 Active Combigan 0.2-0.5 % 1 drop into affected eye Ophthalmic Twice a day Not-Taking Colcrys 0.6 MG 1 tablet Orally i po qd for 10 days Not-Taking Atorvastatin Calcium 40 MG 1 tablet Orally Once a day for 30 day(s) Not-Taking Zanaflex Once a week Not-Taki ng hydroCHLOROthiazide Not-Taking Calcium Not-Taking amLODIPine Besy-Benazepril HCl Not-Taki ng Doxycycline Monohydrate 100 MG 1 capsule Orally Once a day for 10 days 11/18/2020 Not-Taking Januvia Not-Taking Colcrys 0.6 MG 1 tablet Orally Once a day for 10 days 10/16/2013 Not-Taking HYDROmorphone HCl 2 MG 1 tablet as neede d Orally every 6 hrs Not-Taking Metoprolol Succinate 50 MG 1 capsule Orally Once a day Active Metformin & Diet Manage Prod night time Active glipiZIDE 10 MG as directed Orally Active Gabapentin Not-Takin g Gabapentin 300 MG 1 capsule Orally Once a day for 30 day(s) Active Meclizine HCl 25 MG 1 tablet as needed Orally Once a day Not-Taking tylenol PM Active Rosuvastatin Calcium Active prednisoLONE Active Omeprazole Active Stool Softener Activ e Trulicity 0.75 MG/0.5ML Subcutaneous for 56 Active Voltaren 1 % as directed Externally Active Clopidogrel Bisulfate Active Brimonidine Tartrate 0.2 % Ophthalmic for 50 Active Aspirin Adult Low Strength 81mg Active Allopurinol 100 MG Oral for 90 Active Immunizations Vaccine Route Administration Date Status Comme nts COVID-19 Moderna Vaccine Unknown 08/05/[address] 07/08/20 Influenza Unknown 2016 Administered Influenza Unknown 03/30/2017 Administered Influenza Unknown 02/19/2018 Administered Influenza Unknown 05/02/2019 Administered Influenza Unknown 03/27/2022 Administered Pneumococcal Unknown 02/19/2018 Administered Social History Tobacco Use: Social History Observation [...] ast year? No Points 0 Interpretation Negative Problems Problem Type SNOMED Code ICD Code Onset Dates Problem Status W/U Status Risk Notes Problem Polyneuropathy due to type 2 diabetes mellitus (870290385) Type 2 diabetes mellitus with diabetic polyneuropathy (E11.42) Active confirmed Vital Signs Blood pressure diastolic 70 mm Hg 07/14/2024 Height 5 ft 1 in in 07/14/2024 Blood pressure systolic 130 mm Hg 07/14/2024 Weight 256 lbs 07/14/2024 BMI 48.37 kg/m2 07/14/2024 Procedures Procedure Date Ordered Date Performed Result Body Sit e 10968-UECUNUR NAIL, 6 OR MORE 07/14/2024 N/A 31971-HEAQ SKIN LESIONS, 2 TO 4 07/14/2024 N/A Encounters Encounter Location Date Provider Diagnosis [address] [address] 10/29/2023 Eldon Dockery Tinea unguium B35.1 ; Pain in right toe(s) M79.674 ; Pain in left toe(s) M79.675 ; Type 2 diabetes mellitus with diabetic polyneuropathy E11.42 ; Xerosis cutis L85.3 ; Primary osteoarthritis, right ankle and foot M19.071 and Primary osteoarthritis, left ankle and foot M19.[address] [address] 01/30/2024 Eldon Dockery Tinea unguium B35.1 ; Pain in right toe(s) M79.674 ; Pain in left toe(s) M79.675 ; Type 2 diabetes mellitus with diabetic polyneuropathy E11.42 ; Xerosis cutis L85.3 ; Primary osteoarthritis, right ankle and foot M19.071 and Primary osteoarthritis, left ankle and foot M19.[address] [address] 07/14/2024 Natalie Angelo Type 2 diabetes mellitus with diabetic polyneuropathy E11.42 and Tinea unguium B35.[address] [address] 05/15/2024 Natalie Angelo Assessments Encounter Date Diagnosis (ICD Code) Assessment Notes Treatment Notes Treatment Clinical Notes Section Notes 10/29/2023 Pain in right toe(s) (ICD-10 - M79.674) 10/29/2023 Tinea unguium (ICD-10 - B35.1) 01/30/2024 Tinea unguium (ICD-10 - B35.1) 01/30/2024 Pain in right toe(s) (ICD-10 - M79.674) 07/14/2024 Type 2 diabetes mellitus with diabetic polyneuropathy (ICD-10 - E11.42) 07/14/2024 Tinea unguium (ICD-10 - B35.1) 01/30/2024 Pain in left toe(s) (ICD-10 - M79.675) 10/29/2023 Pain in left toe(s) (ICD-10 - M79.675) 10/29/2023 Type 2 diabetes mellitus with diabetic polyneuropathy (ICD-10 - E11.42) 01/30/2024 Type 2 diabetes mellitus with diabetic polyneuropathy (ICD-10 - E11.42) 01/30/2024 Xerosis cutis (ICD-10 - L85.3) 10/29/2023 Xerosis cutis (ICD-10 - L85.3) 10/29/2023 Primary osteoarthritis, right ankle and foot (ICD-10 - M19.071) 01/30/2024 Primary osteoarthritis, right ankle and foot (ICD-10 - M19.071) 01/30/2024 Primary osteoarthritis, left ankle and foot (ICD-10 - M19.072) 10/29/2023 Primary osteoarthritis, left ankle and foot (ICD-10 - M19.072) Plan Of Treatment Pending Test Test Name Order Date X ray : Foot, left 2V 10/16/2013 *Uric Acid, Serum 10/16/2013 *Uric Acid, Serum 11/18/2020 *CBC With Differential/Platelet 11/19/19 21 *Sedimentation Rate-Westergren 1 *Sedimentation Rate-Westergren 4 X ray : Foot, left 3V 11/18/2020 41205-IJSHLDO NAIL, 6 OR MORE 07/14/2024 68814-APRZAXW NAIL, 6 OR MORE 08/27/2013 48594-UWTKVIK NAIL, 6 OR MORE 02/26/2013 55232-FSYJHMO NAIL, 6 OR MORE 05/28/2013 67800-PLCPUSA NAIL, 6 OR MORE 03/11/2012 70836-SAOLJTE NAIL, 6 OR MORE 05/27/2012 16395-IQODAHV NAIL, 6 OR MORE 08/21/2012 91728-QPPCLRM NAIL, 6 OR MORE 11/25/2012 98419-VCAMTDQ NAIL, 6 OR MORE 12/11/2013 30815-XBTGIRK NAIL, 6 OR MORE 02/16/2014 04122-EFOXTDP NAIL, 6 OR MORE 05/18/2014 43565-XAIWDKW NAIL, 6 OR MORE 08/24/2014 34716-WFFMYHT NAIL, 6 OR MORE 12/16/2014 51287-DTWQNVW NAIL, 6 OR MORE 03/17/2015 73457-XSKCVSP NAIL, 6 OR MORE 06/21/2015 81189-ZMVBJEL NAIL, 6 OR MORE 09/13/2015 27710-HCSPCKN NAIL, 6 OR MORE 11/26/2017 37610-DHNUJEC NAIL, 6 OR MORE 2018 38344-VXGTQCI NAIL, 6 OR MORE 05/27/2018 62186-NJAYYUJ NAIL, 6 OR MORE 12/09/2015 28241-AWNVEVL NAIL, 6 OR MORE 03/06/2016 81149-QSLRIHR NAIL, 6 OR MORE 06/19/2016 45421-URLBHDC NAIL, 6 OR MORE 09/18/2016 40243-ZYGQCCS NAIL, 6 OR MORE 12/20/2016 51371-HKYVBRJ NAIL, 6 OR MORE 03/12/2017 17230-IYZRKPU NAIL, 6 OR MORE 05/28/2017 13801-RLVXAXP NAIL, 6 OR MORE 08/29/2017 93871-Gascdvyk Plate 11/25/2012 71582-Irfkzthz Plate 08/21/2012 44636-MGRW SKIN LESIONS, OVER 4 08/04/19 22 64308-PJTU SKIN LESIONS, 2 TO 4 07/14/19 25 16532-KINS SKIN LESIONS, 2 TO 4 08/22/19 13 86803-GQZE SKIN LESIONS, 2 TO 4 05/27/20 12 78435-FCJD SKIN LESIONS, 2 TO 4 03/11/20 12 28140-CHNI SKIN LESIONS, 2 TO 4 05/28/20 13 12654-RRBK SKIN LESIONS, 2 TO 4 02/27/20 13 85190-DBPQ SKIN LESIONS, 2 TO 4 08/28/19 14 37310-QXDH SKIN LESIONS, 2 TO 4 09/13/19 16 70059-IOHO SKIN LESIONS, 2 TO 4 06/21/19 16 44211-AJDQ SKIN LESIONS, 2 TO 4 03/17/20 15 48105-QDZH SKIN LESIONS, 2 TO 4 12/17/19 15 29084-THYU SKIN LESIONS, 2 TO 4 08/25/19 15 21234-MMPX SKIN LESIONS, 2 TO 4 05/18/20 14 43263-CBVL SKIN LESIONS, 2 TO 4 02/17/20 14 25185-JWDV SKIN LESIONS, 2 TO 4 12/12/19 14 29046-BZGA SKIN LESIONS, 2 TO 4 11/27/19 18 06146-OHGN SKIN LESIONS, 2 TO 4 08/30/19 18 91851-CECP SKIN LESIONS, 2 TO 4 05/28/20 17 76947-KSGF SKIN LESIONS, 2 TO 4 03/12/20 17 40462-BVGQ SKIN LESIONS, 2 TO 4 09/19/19 17 71563-TCDI SKIN LESIONS, 2 TO 4 12/21/19 17 32485-WLZR SKIN LESIONS, 2 TO 4 06/19/19 17 25250-GMGB SKIN LESIONS, 2 TO 4 03/06/20 16 24789-NEVP SKIN LESIONS, 2 TO 4 12/09/19 16 66524-LDOK SKIN LESIONS, 2 TO 4 08/27/19 19 94241-VAAQ SKIN LESIONS, 2 TO 4 11/12/19 19 41241-AYOY SKIN LESIONS, 2 TO 4 02/04/20 19 59304-IHBC SKIN LESIONS, 2 TO 4 06/20/19 20 32915-LHNH SKIN LESIONS, 2 TO 4 11/12/19 20 15142-JGTE SKIN LESIONS, 2 TO 4 02/04/20 20 56806-NWRY SKIN LESIONS, 2 TO 4 05/10/20 20 19920-UCJH SKIN LESIONS, 2 TO 4 08/19/19 21 92070-VUSR SKIN LESIONS, 2 TO 4 11/16/19 21 61895-CKUR SKIN LESIONS, 2 TO 4 05/27/20 18 23750-RNGV SKIN LESIONS, 2 TO 4 02/26/20 18 18469-ZTYI SKIN LESIONS, 2 TO 4 02/03/20 21 11129-NTEK SKIN LESIONS, 2 TO 4 04/27/20 Next Appt Details Provider Name:Ana mabry, 10/14/2024 11:15:00 AM, [address] [place] [address], [phone], Provider Name:Natalie mobley, 12/29/2024 11:00:00 AM, [address] [place] [address], [phone], Insurance Providers Payer Name Payer Address Payer Phone Subscriber Number Group Number Insured Name Patient Relationship to Insured Coverage Start Date Coverage End Date Medicare National [employer] [address] [place] [address] [id number] Elisha duttaDevynErica Self - patient is the insured 2 [facility] [address] [place] [address] [id number] Erica Diallo Self - patient is the insured Medical (General) History Medical History History ICD Code Arthritis cancer glaucoma Gout neuropathy chicken pox measles mumps vertigo type II diabetes Surgical History Surgery Date(Month/Year) appendectomy 1957 gall bladder 1968 ovarian surgery 1978 hysterectomy 1999 shunt back surgery 11/06/2013 Back sx 03/13/17 left eye surgery 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
--- OUTSIDE RECORDS SUMMARY | 2024-09-29 07:16 | XMS_ITS ---
Author Organization [facility] Address [address] [place] [address] Care Team Providers Care Railroad Worker Name Role Phone Fidel Lucero MD Primary Care Provider Natalie Munoz Unavailable [phone] Allergies Allergen (clinical drug ingredient) Drug/Non Drug [...] No Points 0 Interpretation Negative Vital Signs Blood pressure systolic 130 mm Hg 07/14/19 25 Blood pressure diastolic 70 mm Hg 025 Height 5 ft 1 in in 07/14/2024 Weight 256 lbs 07/14/2024 BMI 48.37 kg/m2 07/14/2024 Procedures Procedure Date Ordered Date Performed Result Body Sit e 47633-JGXQSUX NAIL, 6 OR MORE 07/14/2024 N/A 95675-RROL SKIN LESIONS, 2 TO 4 07/14/2024 N/A Encounters Encounter Location Date Provider Diagnosis [facility] [address] [place] [address] 07/14/2024 Natalie Angelo Type 2 diabetes mellitus with diabetic polyneuropathy E11.42 and Tinea unguium B35.1 Assessments Encounter Date Diagnosis (ICD Code) Assessment Notes Treatment Notes Treatment Clinical Notes Section Notes 07/14/2024 Type 2 diabetes mellitus with diabetic polyneuropathy (ICD-10 - E11.42) 07/14/2024 Tinea unguium (ICD-10 - B35.1) Plan Of Treatment Pending Test Test Name Order Date 51286-TZACTQX NAIL, 6 OR MORE 07/14/2024 99372-RKLZ SKIN LESIONS, 2 TO 4 02/03/20 25 Next Appt Details Follow Up: 3 Months, Reason: Provider Name:Ana Mabry Trini mabry, 10/14/2024 11:15:00 AM, [address] [place] [address], [phone], Provider Name:Natalie mobley, 12/29/2024 11:00:00 AM, [address] [place] [address], [phone], Procedure Notes * Category Sub-Category Detail Notes [...] use of a nail nipper and/or dremel-type jig grinder, to a more viable healthy nail plate [...] to maintain effectiveness in symptomatic relief - 36885 Keratoma Treatment Parring or Cutting o f [...] instrumentation by the physician of record - 18737 Progress Notes * Erica BOATENG ADOB:[birth year] (89 yo F)Acc No.[id number]:07/14/2024 Progress Note Patient:Erica BRIZUELA Provider:?Natalie Angelo DPM :1935???Age:89 Y???Sex:Female D ate:07/14/2024 Address:[address] [place], [place] [phone] Pcp:Fidel Lucero MD Subjective: * Chief Complaints: [...] use of a nail nipper and/or dremel-type jig grinder, to a more viable healthy nail plate [...] to maintain effectiveness in symptomatic relief - 02211.?Keratoma Treatment:?Parring or Cutting of Benign Hyperkeratotic Lesion(s)?(-56) [...] instrumentation by the physician of record - 41111.? * Procedure Codes:?23059 DEBRI DE NAIL, 6 OR MORE, Modifiers: XS 29421 TRIM SKIN LESIONS, 2 TO 4, Modifiers: XS * Follow Up:?3 Months * Images: * Sign off status: Completed true * Provider:?Natalie Angelo DPM Date:?0 07/14/2024 Generated for Ishan rincon/Chad/Juan on:?09/29/2024 07:15 AM EDT History and Physical Notes * HPI [...]
[2024-09-29 10:03] LABS: MANUAL DIFF FLAG NO
[2024-09-29 10:10] LABS: Basophils Percent Auto 0.6 % (0-2); Eosinophils Absolute Auto 0.3 X10*3/uL (0.0-0.4); Eosinophils Percent Auto 5.6 % (0-4); Hematocrit 35.9 % (37.0-47.0); Hemoglobin 11.6 g/dl (12.0-16.0); Imm Gran Abs Auto 0.01 X10*3/uL (0.00-0.03); Imm Gran Pct Auto 0.2 % (0.0-0.4); Lymphocytes Absolute Auto 1.8 X10*3/uL (1.2-4.9); Lymphocytes Percent Auto 32.8 % (20-40); Mean Corpuscular HGB Conc 32.3 g/dl (31.0-35.0); Mean Corpuscular Volume 98.9 fL (80.0-98.0); Mean Platelet Volume 12.5 fL (9.4-12.3); Monocytes Absolute Auto 0.7 X10*3/uL (0.1-1.2); Monocytes Percent Auto 12.2 % (2-11); Neutrophils Absolute Auto 2.6 x10*3/uL (2.0-8.3); Neutrophils Percent Auto 48.6 % (45-73); Platelet Count 139 X10*3/uL (160-400); Red Blood Count 3.63 X10*6/uL (4.20-5.50); White Blood Count 5.3 X10*3/uL (4.8-10.8)
[2024-09-29 10:17] LABS: Estimated Average Glucose 169 mg/dL; Hemoglobin A1C 178.2868 umol/L; Hemoglobin A1c % 7.5 % (<6.0); Total Hemoglobin (HGBA1C) 3036.1408 umol/L
[2024-09-29 10:24] LABS: Alanine Aminotransferase 19 U/L (0-31); Albumin Level 3.7 g/dL (3.5-5.0); Alkaline Phosphatase 100 U/L (39-117); Anion Gap 13 (12-20); Aspartate Amino Transferase 38 U/L (5-31); Bilirubin Total 0.5 mg/dL (0.0-1.0); Blood Urea Nitrogen 30 mg/dL (9-16); Calcium 9.3 mg/dL (8.4-10.2); Carbon Dioxide 26 mmol/L (22-29); Chloride 105 mmol/L (96-108); Cholesterol 130 mg/dL (<200); Estimated Glomerular Filt Rate 33; Glucose Random 134 mg/dL (60-115); HDL Cholesterol 45 mg/dL (>40); LDL Cholesterol Calculated 55 mg/dL (<100); Potassium 4.7 mmol/L (3.3-5.1); Sodium 139 mmol/L (135-145); Total Protein 6.7 g/dL (6.5-8.0); Triglycerides 151 mg/dL (<150)
[2024-09-29 10:49] LABS: Vitamin B12 407 pg/mL (200-900)
== END 2024-09-29 07:13 | disposition home or self-care (01) ==
LOC: HO.HMGCLDS 07:12
PROVIDERS: PCP Internal Medicine; Visit Provider Internal Medicine
DX: E04.2 Nontoxic multinodular goiter (principal); E11.9 Type 2 diabetes mellitus without complications; E78.5 Hyperlipidemia, unspecified
CPT/HCPCS: 36415; 80053; 80061; 82607; 82746; 83036; 84443; 85025

== ENCOUNTER 2024-12-18 07:52 | Outpatient (REF) | payer MEDICARE, SELFPAY ==
--- OUTSIDE RECORDS SUMMARY | 2024-05-15 06:00 | XMS_ITS ---
Author Organization [facility] Address [address] [place] [address] Care Team Providers Care Vice President Of Consulting Services Name Role Phone Bee Arteaga Primary Care Provider Natalie Quintana [phone] Encounters Encounter Location Date Provider Diagnosis [address] [address] 05/15/2024 Natalie Angelo Plan Of Treatment Next Appt Details Provider Name:Natalie mobley, 12/29/2024 11:00:00 AM, [address] [place] [address], [phone], Progress Notes * Erica BOATENG ADOB:[birth year] (89 yo F)Acc No.[id number]:05/15/2024 Progress Note Patient: Guillermo BEEBE Erica Joiner Provider: Piter Angelo DPM :1935 A ge:89 Y S ex:Female Date:05/15/2024 Address:[address] [place] [phone] Pcp:Bee Arteaga Subjective: * Chief Complaints: * * Medical History: Objective: * Vitals: Assessment: Plan: * Treatment: * Images: * The named appointment provid er may or may not be the originator of this progress note, and it is not deemed complete until electronically signed by the appointment provider. Sign off status: Pending * Provider: Piter Angelo DPM Date: 1 07/16/2023 Generated for Ishan rincon/Chad/Juan on: 0 12/19/2024 07:55 AM EDT
--- NOTE | ~2024-12-18 | XR_ITS ---
EXAMINATION: X-ray knee, bilaterally. CLINICAL INFORMATION: Knee pain. TECHNIQUE: AP view in standing position, both knees. Gross lateral views and sunrise views both knees. COMPARISON: December 03, 2019 and November 25, 2019. FINDINGS: There is joint space narrowing involving medial lateral compartment and the patellofemoral joint with associated marginal osteophyte formation femoral condyles and tibial plateaus and sclerosis along the articular surfaces more pronounced in the medial compartment. Subchondral cyst formation along the articular surfaces. No gross suprapatellar bursa joint effusion. No lytic or blastic lesions. Patient's large body habitus. Osteopenia versus osteoporosis. 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 Electronically signed by: Cosmo Palomo MD 12/18/2024 10:39 AM EDT
--- OUTSIDE RECORDS SUMMARY | 2024-12-19 07:56 | XMS_ITS | Patient Health Record ---
Author Organization [facility] Address [address] [place] [address] Care Team Providers Care Excellence Specialist Name Role Phone Fidel Lucero MD Primary Care Provider Jonas Conteh Jr Unavailable [phone] Allergies Allergen (clinical drug ingredient) Drug/Non Drug [...] Problem Status W/U Status Risk Notes Problem [id number] Change in bowel habits (R19.4) Active confirmed Problem [id number] Abnormal CT scan, colon (R93.3) Active confirmed Problem [id number] Dysphagia, unspecified type (R13.10) Active confirmed Plan Of Treatment No Information Insurance Providers Payer Name Payer Address Payer Phone Subscriber Number Group Number Insured Name Patient Relationship to Insured Coverage Start Date Coverage End Date MEDICARE OF [place] [address] [place] [address] [id number] ARLYN HUMPHRIES Self - patient is the insured MEDEX ATTN CLAIMS [address] [place] [address] [id number] ARLYN HUMPHRIES Self - patient is the insured Medical (General) History Medical History History ICD Code Denies [place],CVA,Lung disease,renal disease diabetes mellitus vertigo Surgical History Surgery Date(Month/Year) appendectomy cholecystectomy hysterectomy back surgery shunt placement in eye
--- OUTSIDE RECORDS SUMMARY | 2024-12-19 07:56 | XMS_ITS | Clinical Summary ---
Author Organization [address] [place] [address] [place] [phone] Phone Care Team Providers Care Filter Press Pumper Name Role Phone Fidel Lucero MD Primary Care Provider [phone] Allergies Active Allergy Reactions Criticality Noted Date [...] Date Diagnosed Date CHB (complete heart block) ([facility] V24, [facility] V28) 02/08/2023 Hyperlipidemia 03/02/2021 Overview (05/03/2024): [...] cardiac pacemaker 03/02/2021 Overview (05/03/2024): 03/07/20 @ [facility] with Dr. Murphy Atrioventricular block, complete ([facility] V24, C [place]/[facility] V28) 02/26/2021 Overview (05/03/2024): [employer] Sa[employer]l dual chamber pacemaker placed 02/2020 Required lead extraction and replacement in 04/2020 Last Assessment & Plan: Most recent device check from June 2023 revealed normal device function. No new alerts or arrhythmias noted. Estimated battery longevity greater than 7 years. A paced 2.5% and V paced 81%. Coronary artery disease invo lving [place] coronary artery of [place] heart without angina pectoris 02/26/2021 Overview (05/03/2024): [...] Description 10/03/2024 4:00 PM EDT Ancillary Procedure [facility] Cardiology [facility] [address] [place] [address] 10/03/2024 Telephone [facility] [address] [place] [address] Ruth Umana, BORING MILL OPERATOR FOR METAL V lead noise from Last 3 Months [...] Description 01/05/2025 2:40 PM EDT Office Visit [facility] - [facility] [address] [facility] [address] [place] [phone] Montserrat Ghosh NP [address] [facility] [address] [place] [address] Health Maintenance Due Date Last Done Comments [...] this topic Medical Devices Implanted Type Area Waiter/Waitress First Class Device Identifier Shelf Expiration Date Model / Serial / Lot Abbt-Stju 2272 Assurity Mri(Tm) [id number] Implanted: (Quantity not on file) Cardiac Pacemaker [employer]- [employer] 2272 ASSURITY MRI(TM) / [id number] / Procedures Procedure Name Priority Date/Time Associated Diagnosis Comments CARDIAC DEVICE CHECK- REMOTE- MURJ Routine 10/03/2024 3:59 PM EDT from Last 3 Months Results * Cardiac device check - Remote- MURJ (10/03/2024 3:59 PM EDT) Date Time Interrogation Session [id number] CV DEVICE CHECK Type Interrogation Session Remote Scheduled CV DEVICE CHECK Implantable Pulse Generator Waiter/Waitress First Class [employer]Sa[employer] CV DEVICE CHECK Implantable Pulse Generator Type IPG CV DEVICE CHECK Implantable Pulse Generator Model 2272 Assurity MRI(TM) CV DEVICE CHECK Implantable Pulse Generator Serial Number [id number] CV DEVICE CHECK Implantable Pulse Generator Implant Date 20200227 CV DEVICE CHECK Battery Remaining Percentage 58.00 CV DEVICE CHECK Battery Remaining Longevity 74.0 CV DEVICE CHECK Battery Voltage 2.990 CV D EVICE CHECK Battery PERSONAL COUNSELOR Trigger 2.600 CV DEVICE CHECK Battery Status Middle of Service CV DEVICE CHECK Peter Statistic RA Percent Paced 17.00 CV DEVICE CHECK Peter Statistic RV Percent Paced 96.00 CV DEVICE CHECK Atrial Tachy Statistic AT/AF [place] [employer] Percent 0.00 CV DEVICE CHECK Lead Channel [...] / Noise reversion mode kathleen. Ruth Umana BORING MILL OPERATOR FOR METAL CV IMPLANTABLE CARDIAC DEVIC E PROCEDURES Final Result from Last 3 Months Insurance MEDICARE [facility] Care Teams Filter Press Pumper Relationship Specialty Start Date End Date Fidel Lucero MD [address] [place] [address] Dr Romario [place] PCP - General Manufacturing Technician 11/28/13
--- OUTSIDE RECORDS SUMMARY | 2024-12-19 07:56 | XMS_ITS | Encounter Summary ---
Author Organization [facility] Address [address] [place] [address] Care Team Providers Care Cd Technician Name Role Phone Fidel Lucero MD Primary Care Provider [phone] Encounter Details Date Type Department Care Team ([facility] Contact Info) Description 03/07/2016 Prep for Surgery [facility] IP [address] [place] [phone] Lance Núñez MD [address] [place] [phone] (Fax) Social History Tobacco Use Types Packs/Day [...] AM EDT Office Visit [facility], [address] [address] Lance Núñez MD [address] [place] [address] (Fax) documented as of this encounter Visit Diagnoses Not on filedocumented in this encounter Care Teams Cd Technician Relationship Specialty Start Date End Date Fidel Lucero MD [address] [place] [address] [place] [phone] PCP - General 03/01/16 documented as of this encounter
== END 2024-12-18 07:53 | disposition home or self-care (01) ==
LOC: HO.HOSX 07:52
PROVIDERS: Visit Provider Orthopaedic Surgery
DX: M17.0 Bilateral primary osteoarthritis of knee (principal)
CPT/HCPCS: 73562; 99202

== ENCOUNTER 2024-12-18 09:29 | Outpatient (AMB) | payer MEDICARE, SELFPAY ==
--- OUTSIDE RECORDS SUMMARY | 2024-05-15 06:00 | XMS_ITS ---
Author Organization [facility] Address [address] [place] [address] Care Team Providers Care Secret Service Agent Name Role Phone Bee Arteaga Primary Care Provider Natalie Quintana [phone] Encounters Encounter Location Date Provider Diagnosis [address] [address] 05/15/2024 Natalie Angelo Plan Of Treatment Next Appt Details Provider Name:Natalie mobley, 12/29/2024 11:00:00 AM, [address] [place] [address], [phone], Progress Notes * Erica BOATENG ADOB:[birth year] (89 yo F)Acc No.[id number]:05/15/2024 Progress Note Patient: Guillermo BEEBE Erica Joiner Provider: Piter Angelo DPM :1935 A ge:89 Y S ex:Female Date:05/15/2024 Address:[address] [place] [phone] Pcp:Bee Arteaga Subjective: * Chief Complaints: * [...] 07/16/2023 Generated for Ishan rincon/Chad/Juan on: 0 12/18/2024 09:55 AM EDT
--- NOTE | 2024-12-18 09:35 | A.OFFVIS_ITS ---
Vital Signs 12/18/24 09:36 12/18/24 09:36 Height 5 ft 5 ft Weight 268 lb 268 lb BMI 52.3 52.3 Intake Visit Reasons: OV- B/L knee pain Intake Note: Erica an 89 year old female who presents today for bilateral knee pain status post bilateral knee Durolane gel injections 05/05/24 given by DRAKE Rizzo. Patient reports the last set of gel injections did not give her much relief although they always helped for about 6 months. She does walk with a walker because of her knee pain. Most of the pain is along the medial aspects of her knee. She has tried Tylenol and anti-inflammatory medicines which gave her minimal relief. She has also done physical therapy exercises which aggravated her pain. At this point her bilateral knee pains are interfering with her activities of daily living and her ability to sleep well through the night. The patient is aware that because of her BMI over 40 she is not a candidate for total knee replacement surgery at this point. Allergies Pwsjpzv-RQQ-EnJ Reductase Inhibitor Allergy (Unknown, Verified 12/18/24 09:49) myalgias codeine Adverse Reaction (Unknown, Verified 12/18/24 09:49) nausea and feels loopy and out of sorts Medication List - Last Reconciled 12/18/24 by Horacio Leonard MD allopurinol 100 mg PO DAILY aspirin 81 mg PO DAILY dulaglutide (Trulicity) 0.75 mg (0.5 mL) subcut QWEEK furosemide 20 mg PO DAILY gabapentin 300 mg PO TID glipizide 10 mg PO .2tab bid metformin 500 mg PO BID metoprolol succinate ER 50 mg PO DAILY rosuvastatin 10 mg PO BEDTIME [facility] Medical History HLD (hyperlipidemia) T2DM (type 2 diabetes mellitus) CAD (coronary artery disease) Multinodular thyroid Surgical History History of surgery History of back surgery Hx of hysterectomy Hx of appendectomy Hx of cholecystectomy Family History Mother No problems noted. Father No problems noted. Social History Housing: House Alcohol intake: never Patient Tobacco Use Status: Never used Tobacco e-Cigarette/Vaping Use: Never Used service: No Current occupational status: retired Cognitive needs: Yes (walker) Hearing needs: No Vision needs: Yes (rx glasses) Physical Exam Vital Signs: BMI result Body Mass Index 52.3 Extrem Other: Bilateral knee examination shows minimal effusions, palpable crepitus with range of motion, pain with range of motion, no instability Results Reviewed Results Reviewed: X-rays of the patient's bilateral knees taken today show severe joint space narrowing, subchondral sclerosis, osteophyte formation, no acute bony abnormali ties Assessment & Plan Assessment & Plan (1) Osteoarthritis of knees, bilateral: Code(s): M17.0 - Bilateral primary osteoarthritis of knee Category: Medical Qualifiers: Osteoarthritis type: primary Qualified Code(s): M17.0 - Bilateral primary osteoarthritis of knee Plan Ms. Armstrong presents with bilateral knee pains due to degenerative joint disease. I had a lengthy discussion with the patient regarding the treatment options. I will refer her to our pain management department here at [facility]. The patient may be a candidate for a nerve stimulation procedure. I will also see whether or not the patient's insurance company will cover a another viscosupplementation injection, such as Durolane, for both of her knees. I will see her back once the injections are available. Feel free to call me at any time should questions regarding her orthopedic management arise. I spent 21 minutes in reviewing the patient's records and imaging studies, seeing the patient and documenting in the medical record. Orders: Orders XR Knee Robbie 3V Today M17.0 - Bilateral primary osteoarthritis of knee Referrals Pain Management Referral M17.0 - Bilateral primary osteoarthritis of knee Coding Level of Care Code New Pt Level 3 (79460) Complex EM visit Add On G2211 Diagnoses Primary osteoarthritis of both knees M17.0 Osteoarthritis type: primary
[2024-12-18 09:36] VITALS: BMI 52.3
--- OUTSIDE RECORDS SUMMARY | 2024-12-18 09:55 | XMS_ITS | Encounter Summary ---
Author Organization [facility] Address [address] [place] [address] Care Team Providers Care Cell Inspector Name Role Phone Fidel Lucero MD Primary Care Provider [phone] Encounter Details Date Type Department Care Team ([facility] Contact Info) Description 03/07/2016 Prep for Surgery [facility] [address] [place] [id number] Lance Núñez MD [address] [place] [phone] (Fax) Social History Tobacco Use Types Packs/Day [...] Encounters Date Type Department Care Team (Late Contact Info) Description 01/08/2025 9:00 AM EDT Office Visit [facility], [address] [place] [address] [address] Lance Núñez MD [address] [place] [phone] (Fax) documented as of this encounter Visit Diagnoses Not on filedocumented in this encounter Care Teams Cell Inspector Relationship Specialty Start Date End Date Fidel Lucero MD [address] [place] [address] [place] [address] PCP - General 03/01/16 documented as of this encounter
--- OUTSIDE RECORDS SUMMARY | 2024-12-18 09:56 | XMS_ITS ---
Author Name [facility] Organization Unknown History of Medication Use Medication Directions Dispensed Refills Start Date End Date Stat us dorzolamide-timolol (COSOPT) 2-0.5 % ophthalmic solution Administer 1 drop into the left eye 2 (two) times a day. 09/29/2024 active latanoprost (Xalatan) 0.005 % ophthalmic solution Administer 1 drop into the left eye daily. 06/26/2024 active gabapentin (NEURONTIN) 300 MG capsule Take 300 mg by mouth 2 (two) times a day before breakfast and dinner. active glipiZIDE (GLUCOTROL) 5 MG tablet Take 10 mg by mouth every morning before breakfast. active metFORMIN (GLUCOPHAGE) 500 MG tablet Take 1,000 mg by mouth 2 (two) times a day. active Allergies Allergen Reaction Severity Comment Documented Date Source Statu s BRIMONIDINE RASH/DERMATITIS 09/29/2024 [facility] a [facility]ive OTHER OTHER (SEE COMMENTS) EKG stickers - redness 03/06/2016 [facility] active CODEINE DELIRIUM/CONFUSIO N/PSYCHOSIS [facility] Problems Problem Status Onset Date Problem Type Date of Resolution Source Other complications of corneal transplant, bilateral active EncounterDiagnosisAct [facility] Dry eye syndrome, bilateral active EncounterDiagnosisAct [facility] Primary open angle glaucoma of both eyes, unspecified glaucoma stage active EncounterDiagnosisAct [facility] Type 2 diabetes mellitus without complication, without long-term current use of insulin active 2024-09-24 ProblemAct [facility] Encounters Encounter Type Encounter Reason Primary Diagnosis Location Date Ambulatory Primary open-angle glaucoma, bilateral, stage unspecified Primary open-angle glaucoma, bilateral, stage unspecified [facility] 09/29/2024 Ambulatory Type 2 diabetes mellitus without complications Type 2 diabetes mellitus without complications [facility] 06/26/2024 Care Team Organization Name Specialty Phone Email Start Date End Da te [facility] Fidel Lucero [facility] 07/15/2024 10/31/19 25 [facility] Fidel [facility] 04/15/2024 [facility] Surgical Agenda 04/10/2023
--- OUTSIDE RECORDS SUMMARY | 2024-12-18 09:56 | XMS_ITS | Patient Health Record ---
Author Organization [facility] Address [address] [place] [address] Care Team Providers Care Tight Barrel Inspector Name Role Phone Fidel Lucero MD Primary Care Provider Jonas Conteh Jr Unavailable Allergies Allergen (clinical drug ingredient) Drug/Non Drug Allergy documented on EMR Reaction Allergy Type Onset Date Status codeine Codeine Sulfate Unknown Drug Allergy A ctive Reason For Referral No Information Medications Medication SIG (Take, Route, Frequency, Duration) Notes Start Date End Date Status Gabapentin 300 MG 1 capsule Orally Thr ee times a day Active Aspirin 81mg 1 tablet Orally Once a day Active Calcium 500 MG 1 tablet with meals Orally Twice a day Active glipiZIDE 5 MG 1 tablet Orally twic e a day Active Januvia 50mg 1 tablet Orally Once a day Active amLODIPine Besylate 5 MG 1 tablet Orally Once a day Active hydroCHLOROthiazide 25 MG 1 tablet Orally Once a day Active Multi Vitamin/Minerals 1 1 Orally qd Active Vitamin D 2000 UNIT 1 tablet Orally twic e a day Active metFORMIN HCl 500 MG 1 tablet with meals Orally Twice a day Active Omeprazole 20 MG 1 Orally Once a day for 30 day(s) 03/01/2016 Active Immunizations Vaccine Route Administration Date Status Comme nts Flu vaccine no Preserv 3 and > Unknown 2016 Admin istered Influenza Unknown 02/09/2017 Administered Problems Problem Type SNOMED Code ICD Code Onset Dates Problem Status W/U Status Risk Notes Problem [id number] Change in bowel habits (R19.4) Active confirmed Problem [id number] Abnormal CT scan, colon (R93.3) Active confirmed Problem 53166951 Dysphagia, unspecified type (R13.10) Active confirmed Plan Of Treatment No Information Insurance Providers Payer Name Payer Address Payer Phone Subscriber Number Group Number Insured Name Patient Relationship to Insured Coverage Start Date Coverage End Date MEDICARE OF [place] [address] [place] [address] [phone] [id number] ARLYN HUMPHRIES Self - patient is the insured [employer] CLAIMS [address] [place] [address] [phone] [id number] ARLYN HUMPHRIES Self - patient is the insured Medical (General) History Medical History History ICD Code Denies ME,CVA,Lung disease,renal disease diabetes mellitus vertigo Surgical History Surgery Date(Month/Year) appendectomy cholecystectomy hysterectomy back surgery shunt placement in eye
--- OUTSIDE RECORDS SUMMARY | 2024-12-18 09:56 | XMS_ITS | Clinical Summary ---
Author Organization [address] [place] [address] [place] [phone] Phone Care Team Providers Care Reinforcing Bar Setter Name Role Phone Fidel Lucero MD Primary Care Provider [phone] Allergies Active Allergy Reactions Criticality Noted Date [...] Date Diagnosed Date CHB (complete heart block) ([facility] V24, [facility] V28) 02/08/2023 Hyperlipidemia 03/02/2021 Overview (05/03/2024): Last [...] cardiac pacemaker 03/02/2021 Overview (05/03/2024): 03/07/20 @ [facility] with Dr. Murphy Atrioventricular block, complete ([facility] V24, [place]/[facility] V28) 02/26/2021 Overview (05/03/2024): St[employer] Sa[employer]l dual chamber pacemaker placed 02/2020 Required lead extraction and replacement in 04/2020 Last Assessment & Plan: Most recent device check from June 2023 revealed normal device function. No new alerts or arrhythmias noted. Estimated battery longevity greater than 7 years. A paced 2.5% and V paced 81%. Coronary artery disease invo lving [place] coronary artery of [place] heart without angina pectoris 02/26/2021 Overview (05/03/2024): [...] Encounters Date Type Department Care Team Description 10/03/2024 4:00 PM EDT Ancillary Procedure [facility] [address] [place] [address] 10/03/2024 Telephone [facility] [address] [place] [address] Ruth Umana, HEAD OF LOSS PREVENTION V lead noise from Last 3 Months Surgical History Surgery [...] Description 01/05/2025 2:40 PM EDT Office Visit [facility] - [facility] [address] [facility] [address] [place] [phone] Montserrat Ghosh NP [address] [facility] [address] [place] [address] Health Maintenance Due Date Last Done Comments [...] Annual Wellness Visit 03/27/2023 03/27/2022 COVID-19 Vaccine (4 - 2023-2 5 season) 2024 04/03/2023, 08/05/2020, 07/08/2020 Diabetes: Blood Sugar Contro l Test (HGBA1C) 07/04/2024 Influenza Vaccine (#1) 2025 2, 04/08/2021, 03/16/2020 HIB Vaccines Aged Out No [...] this topic Medical Devices Implanted Type Area Technical Sales Representatives Device Identifier Shelf Expiration Date Model / Serial / Lot Abbt-Stju 2272 Assurity Mri(Tm) [id number] Implanted: (Quantity not on file) Cardiac Pacemaker [employer]- [employer] 2272 ASSURITY MRI(TM) / [id number] / Procedures Procedure Name Priority Date/Time Associated Diagnosis Comments CARDIAC DEVICE CHECK- REMOTE- MURJ Routine 10/03/2024 3:59 PM EDT from Last 3 Months Results * Cardiac device check - Remote- MURJ (10/03/2024 3:59 PM EDT) Date Time Interrogation Session [id number] CV DEVICE CHECK Type Interrogation Session Remote Scheduled CV DEVICE CHECK Implantable Pulse Generator Technical Sales Representatives St.Saúl CV DEVICE CHECK Implantable Pulse Generator Type IPG CV DEVICE CHECK Implantable Pulse Generator Model 2272 Assurity MRI(TM) CV DEVICE CHECK Implantable Pulse Generator Serial Number [id number] CV DEVICE CHECK Implantable Pulse Generator Implant Date 20200227 CV DEVICE CHECK Battery Remaining Percentage 58.00 CV DEVICE CHECK Battery Remaining Longevity 74.0 CV DEVICE CHECK Battery Voltage 2.990 CV D EVICE CHECK Battery LAUNDERETTE ATTENDANT Trigger 2.600 CV DEVICE CHECK Battery Status Middle of Service CV DEVICE CHECK Peter Statistic RA Percent Paced 17.00 CV DEVICE CHECK Peter Statistic RV Percent Paced 96.00 CV DEVICE CHECK Atrial Tachy Statistic AT/AF [place] Percent 0.00 CV DEVICE CHECK Lead Channel Sensing Intrinsic Amplitude 1.300 CV DEVICE CHECK Lead Channel Setting Sensing Sensitivity 0.30 CV DEVICE CHECK Lead Channel Impedance Value 400 CV DEVICE CHECK Lead Channel Pacing Threshold Amplitude 0.625 CV DEVICE CHECK Lead Channel Pacing Threshold Pulse Width 0.5 CV DEVICE CHECK Lead Channel RA Pacing Threshold Date 2024-09-30 CV DEVICE CHECK Lead Channel Setting Pacing Amplitude 1.625 CV DEVICE CHECK Lead Channel Setting Pacing Pulse Width 0.5 CV DEVICE CHECK Lead Channel Sensing Intrinsic Amplitude 12.000 CV DEVICE CHECK Lead Channel Setting Sensing Sensitivity 0.50 CV DEVICE CHECK Lead Channel Impedance Value 540 CV DEVICE CHECK Lead Channel Pacing Threshold Amplitude 0.625 CV DEVICE CHECK Lead Channel Pacing Threshold Pulse Width 0.5 CV DEVICE CHECK Lead Channel RV Pacing Threshold Date 2024-09-30 CV DEVICE CHECK Lead Channel Setting Pacing Amplitude 0.875 CV DEVICE CHECK Lead Channel Setting Pacing [...] 150 CV DEVICE CHECK Date of Service 2024-10-14 CV DEVICE CHECK Anatomical Region Laterality Modality Device Interroga tion 09/30/2024 4:00 AM EDT Impressions 10/03/2024 3:57 PM EDT Normal Remote: With Events * Normal Device Function * Events or Alerts: 40 noise reversions since 04/03 No strips * Battery: Battery is at 58%, 6.17 yrs * Sensing, impedance and thresholds reviewed * Programmed parameters reviewed * Presenting rhythm reviewed * Heart Rate Histograms reviewed Additional Notes: RV lead noise ~ No egms / 40 episodes which looks like it stared in March. Noise storage is off / Noise reversion mode is on. Narrative Procedure Note Ruth Umana NP - 10/03/2024 IMPRESSION: Normal Remote: With Events * Normal Device Function * Events or Alerts: 40 noise reversions since 04/03 No strips * Battery: Battery is at 58%, 6.17 yrs * Sensing, impedance and thresholds reviewed * Programmed parameters reviewed * Presenting rhythm reviewed * Heart Rate Histograms reviewed Additional Notes: RV lead noise ~ No egms / 40 episodes which lookslike it stared in March. Noise storage is off / Noise reversion mode kathleen. Ruth Umana HEAD OF LOSS PREVENTION CV IMPLANTABLE CARDIAC DEVIC E PROCEDURES Final Result from Last 3 Months Insurance MEDICARE [facility] Care Teams Reinforcing Bar Setter Relationship Specialty Start Date End Date Fidel Lucero MD [address] [place] [address] Dr Romario [place] PCP - General Mgmt Specialist 11/28/13
== END 2024-12-18 10:04 | disposition home or self-care (01) ==
LOC: HO.HOS 09:29
PROVIDERS: PCP Internal Medicine; Visit Provider Orthopaedic Surgery
DX: M17.0 Bilateral primary osteoarthritis of knee (principal)
CPT/HCPCS: 99203; G2211

== ENCOUNTER → 2024-12-18 09:30 | Outpatient (BNV) | payer MEDICARE, SELFPAY | PROVIDERS: Visit Provider Radiology Diagnostic Radiology | DX: M17.0 Bilateral primary osteoarthritis of knee (principal) | CPT/HCPCS: 73562 ==

== ENCOUNTER 2025-01-05 09:53 | Outpatient (AMB) | payer MEDICARE, SELFPAY ==
--- OUTSIDE RECORDS SUMMARY | 2024-12-29 07:00 | XMS_ITS ---
Author Organization [facility] Address [address] [facility] [place] [address] Care Team Providers Care Balloon Tester Name Role Phone Bee Arteaga Primary Care Provider Natalie Quintana Unavailable [phone] Allergies Allergen (clinical drug ingredient) Drug/Non Drug [...] Not-Taking Encounters Encounter Location Date Provider Diagnosis [facility] [address] [place] [address] 12/29/2024 Natalie Angelo Plan Of Treatment No Information Progress Notes * Erica BOATENG ADOB:[birth year] (89 yo F)Acc No.[id number]:12/29/2024 Progress Note Patient: Guillermo BEEBE Erica A Provider: Piter Angelo DPM :1935 A ge:89 Y S ex:Female Date:12/29/2024 Address:[address] [place] [phone] Pcp:Bee Arteaga Subjective: * Chief Complaints: * [...] Pending * Provider: Piter Angelo DPM Date: 12/29/2024 Generated for Ishan rincon/Chad/Juan on: 01/05/2025 10:53 AM EDT
--- NOTE | 2025-01-05 09:59 | MHC.OFFVIS ---
Vital Signs 01/05/25 10:02 Height 5 ft Weight 256 lb BMI 50.0 BP 219/89 H Blood Pressure Location Lt brachial Position Sitting Respiration 17 Pulse 74 Pulse Source Pulse Oximeter Pulse Oximetry (%) 92 Oxygen Delivery Method Room Air Intake Visit Reasons: Bilateral primary osteoarthritis of knee Intake Note: Pt's BP is grossly elevated. She stated she had a terrible morning and is stressed Computer Graphic Artist Required: No Allergies Jinyheg-BGJ-JrQ Reductase Inhibitor Allergy (Unknown, Verified 01/05/25 12:02) myalgias codeine Adverse Reaction (Unknown, Verified 01/05/25 12:02) nausea and feels loopy and out of sorts Medication List - Last Reconciled 01/05/25 by Annabel Lugo LPN allopurinol 100 mg PO DAILY aspirin 81 mg PO DAILY furosemide 20 mg PO DAILY gabapentin 300 mg PO TID glipizide 10 mg PO .2tab bid metformin 500 mg PO BID metoprolol succinate ER 50 mg PO DAILY rosuvastatin 10 mg PO BEDTIME Trulicity (dulaglutide) 0.75 mg (0.5 mL) subcut QWEEK NS HPI HPI Bilateral primary osteoarthritis of knee: Details: History of Present Illness The patient is an 89-year-old female presenting with knee pain associated with osteoarthritis. She has been receiving hyaluronic acid injections for the past four to five years, which initially provided relief but most recently was painful and ineffective. The patient has not received cortisone injections due to concerns about their efficacy and the need for repeated administration, but is considering alternating between gel and steroid injections to manage symptoms. The patient has a history of diabetes mellitus, which is relevant to the management of her osteoarthritis and potential treatment options. Pain Description - Onset: Chronic knee pain due to osteoarthritis - Quality: Painful and less effective response to hyaluronic acid injections - Location: Bilateral knees, with the left knee being worse - Exacerbating factors: Ineffective gel injections - Relieving factors: Previously effective gel injections Physical Exam - Appears afebrile. - Alert and oriented. - Mood and affect appropriate. - Follows and participates in conversation appropriately. - Respiratory effort is unlabored. - Sitting comfortably in walker; morbid obesity. Pain Management - Affect: Pain impacts mobility, requiring the use of a walker - Analgesia: Hyaluronic acid injections previously effective, now considering cortisone - Activities of Daily Living: Limited mobility, primarily homebound [facility] Medical History HLD (hyperlipidemia) T2DM (type 2 diabetes mellitus) CAD (coronary artery disease) Multinodular thyroid Surgical History History of surgery History of back surgery Hx of hysterectomy Hx of appendectomy Hx of cholecystectomy Family History Mother No problems noted. Father No problems noted. Social History Housing: House Alcohol intake: never Patient Tobacco Use Status: Never used Tobacco e-Cigarette/Vaping Use: Never Used Patient : No service: No Current occupational status: retired Cognitive needs: Yes (walker) Hearing needs: No Vision needs: Yes (rx glasses) Physical Exam Vital Signs: Last Vital Signs Pulse 74 01/05/25 10:02 Resp 17 01/05/25 10:02 BP 219/89 H 01/05/25 10:02 Pulse Ox 92 01/05/25 10:02 Oxygen Delivery Method Room Air 01/05/25 10:02 BMI result Body Mass Index 50.0 Assessment & Plan Assessment & Plan (1) Osteoarthritis of knees, bilateral: Code(s): M17.0 - Bilateral primary osteoarthritis of knee Category: Medical Qualifiers: Osteoarthritis type: primary Qualified Code(s): M17.0 - Bilateral primary osteoarthritis of knee Plan Plan - Alternate between hyaluronic acid and cortisone injections to manage osteoarthritis symptoms. - Use fluoro guidance for future injections to ensure proper placement and effectiveness. - Schedule bilateral knee injection with fluoroscopy guidance to assess response and adjust treatment plan accordingly. Patient was informed and verbally consented to the use of an ambient scribe for clinic note documentation during this visit. Discussion Notes I discussed with the patient the option of alternating between hyaluronic acid and cortisone injections to manage her osteoarthritis symptoms. We talked about the importance of using imaging guidance for future injections to ensure proper placement and effectiveness. The patient agreed to schedule a left knee injection with fluoroscopy guidance to assess response and adjust the treatment plan accordingly. Patient Instructions - Follow up with the clinic to schedule the left knee injection with fluoroscopy guidance. - Monitor for any changes in pain or mobility and report them to the clinic. - Continue using a walker for mobility support as needed. Coding Level of Care Code New Pt Level 3 (13701) Diagnoses Primary osteoarthritis of both knees M17.0 Osteoarthritis type: primary
[2025-01-05 10:02] VITALS: BP 219/89; PULSE 74; RESP 17; O2SAT 92; BMI 50.0
--- OUTSIDE RECORDS SUMMARY | 2025-01-05 10:53 | XMS_ITS | Patient Health Record ---
Author Organization [facility] Address [address] [place] [address] Care Team Providers Care Surgical Resident Name Role Phone Nic (RETIRED) Fidel IVORY Primary Care Provide Jonas Ga Jr Unavailable Allergies Allergen (clinical drug ingredient) [...] Problem Status W/U Status Risk Notes Problem [id number] Change in bowel habits (R19.4) Active confirmed Problem [id number] Abnormal CT scan, colon (R93.3) Active confirmed Problem [id number] Dysphagia, unspecified type (R13.10) Active confirmed Plan Of Treatment No Information Insurance Providers Payer Name Payer Address Payer Phone Subscriber Number Group Number Insured Name Patient Relationship to Insured Coverage Start Date Coverage End Date MEDICARE OF [place] [address] C[place]IA MONTESINOSKARL [id number] [phone] [id number] ARLYN HUMPHRIES Self - patient is the insured MED[employer] ATT[employer] CLAIMS [address] [place] [phone] [id number] ARLYN HUMPHRIES Self - patient is the insured Medical (General) History Medical History History ICD Code Denies AK,CVA,Lung disease,renal disease diabetes mellitus vertigo Surgical History Surgery Date(Month/Year) appendectomy cholecystectomy hysterectomy back surgery shunt placement in eye
--- OUTSIDE RECORDS SUMMARY | 2025-01-05 10:53 | XMS_ITS | Encounter Summary ---
Author Organization [facility] Address [address] [place] [address] Care Team Providers Care Behavioral Health Tech Name Role Phone Fidel Lucero MD Primary Care Provider [phone] Encounter Details Date Type Department Care Team ([facility] Contact Info) Description 03/07/2016 Prep for Surgery HH SURGICAL SVC IP [address] [place] [phone] Lance Núñez MD [address] [place] [phone] (Fax) Social History Tobacco Use Types Packs/Day [...] AM EDT Office Visit [facility], [address] [address] Lance Núñez MD [address] [place] [address] (Fax) documented as of this encounter Visit Diagnoses Not on filedocumented in this encounter Care Teams Behavioral Health Tech Relationship Specialty Start Date End Date Fidel Lucero MD [address] [place] [address] [place] [address] PCP - General 03/01/16 documented as of this encounter
--- OUTSIDE RECORDS SUMMARY | 2025-01-05 10:53 | XMS_ITS | Clinical Summary ---
Author Organization [address] [place] [address] [place] [phone] Phone Care Team Providers Care Warehouse Representative Name Role Phone Fidel Lucero MD Primary Care Provider [phone] Allergies Active Allergy Reactions Criticality Noted Date [...] Date Diagnosed Date CHB (complete heart block) ([facility] V24, [facility] V28) 02/08/2023 Hyperlipidemia 03/02/2021 Overview (05/03/2024): Last [...] cardiac pacemaker 03/02/2021 Overview (05/03/2024): 03/07/20 @ [facility] with Dr. Murphy Atrioventricular block, complete ([facility] V24, C [place]/[facility] V28) 02/26/2021 Overview (05/03/2024): St[employer] Sa[employer]l dual chamber pacemaker placed 02/2020 Required lead extraction and replacement in 04/2020 Last Assessment & Plan: Most recent device check from June 2023 revealed normal device function. No new alerts or arrhythmias noted. Estimated battery longevity greater than 7 years. A paced 2.5% and V paced 81%. Coronary artery disease invo lving gulkana coronary artery of [place] heart without angina pectoris 02/26/2021 Overview (05/03/2024): [...] going to update echocardiogram to further evaluate Surgical History Surgery Date Site/Laterality Comments CARDIAC CATHETERIZATION 02/2020 PROCEDURE: HISTORICAL CARDIAC CATH Medical History Medical History Date Comments Diabetes mellitus, type II ( [facility] V24, CMS/HCC V28) DX:Diabetes mellitus, type I I ([facility]) Arthritis DX:Arthritis Family History Medical History Relation [...] Care Team (Late st Contact Info) Description 02/03/2025 11:20 AM EDT Office Visit [facility] [address] [facility] [address] [place] [phone] Marisa Bustos, LUC [address] [place] [address] Health Maintenance Due Date Last Done Comments Diabetes: Annual Foot Exam 1945 Diabetes: Annual Retina Eye Exam 1945 DTaP,Tdap,and Td Vaccines (1 - Tdap) 02/26/1956 Pneumococcal Vaccine: 50+ Years (1 of 1 - PCV) 1987 Zoster Vaccines (1 of 2) 1987 RSV Immunization Adult Patients (1 - 1-dose 75+ series) 02/26/2012 Cholesterol Screening (Lipid Panel) 05/20/2022 Falls Risk Assessment 05/20/2022 Osteoporosis Screening (Bone Density Screening) 05/20/2022 Social Influencers of Health Screening 05/20/2022 Hypertension/CHF/CAD Annual BMP Blood Test 05/21/2022 Medicare Annual Wellness Visit 03/27/2023 03/27/2022 COVID-19 Vaccine (4 - 2023-2 5 season) 2024 04/03/2023, 08/05/2020, 07/08/2020 Depression Screening 06/11/2024 Diabetes: Blood Sugar Contro l Test (HGBA1C) 07/04/2024 Influenza Vaccine (#1) 2025 , 04/08/2021, 03/16/2020 HIB Vaccines Aged Out No [...] this topic Medical Devices Implanted Type Area Prn Physical Therapist Device Identifier Shelf Expiration Date Model / Serial / Lot Abbt-[id number] 2272 Assurity Mri(Tm) [id number] Implanted: (Quantity not on file) Cardiac Pacemaker [employer]- [employer] 2272 ASSURITY MRI(TM) / [id number] / Insurance MEDICARE [facility] Care Teams Warehouse Representative Relationship Specialty Start Date End Date Fidel Lucero MD [address] [place] [address] Dr Romario [place] PCP - General Intermediate Designer 11/28/13
== END 2025-01-05 10:43 | disposition home or self-care (01) ==
LOC: HO.PMC 09:54
PROVIDERS: PCP Internal Medicine; Referring Provider Orthopaedic Surgery; Visit Provider Internal Medicine
DX: M17.0 Bilateral primary osteoarthritis of knee (principal)
CPT/HCPCS: 99203

== ENCOUNTER → 2025-01-05 09:53 | Outpatient (BNVA) | payer MEDICARE, SELFPAY | PROVIDERS: PCP Internal Medicine; Referring Provider Orthopaedic Surgery; Visit Provider Internal Medicine | DX: M17.0 Bilateral primary osteoarthritis of knee (principal); S06.0X0A Concussion without loss of consciousness, initial encounter | CPT/HCPCS: 99202; 99212 ==

== ENCOUNTER 2025-01-05 11:05 | Outpatient (AMB) | payer MEDICARE, SELFPAY ==
[2025-01-05 11:55] VITALS: BP 169/76; PULSE 70; TEMP 36.8; O2SAT 95; BMI 51.6
--- NOTE | 2025-01-05 11:55 | AM.OFFWIN_ITS ---
Intake Vital Signs 01/05/25 11:55 Height 5 ft Weight 264 lb BMI 51.6 BP 169/76 H Blood Pressure Location Lt brachial Position Sitting Pulse 70 Pulse Source Pulse Oximeter Temp 98.2 F Temp Source Oral Pulse Oximetry (%) 95 Oxygen Delivery Method Room Air Intake Visit Reasons: EP-lt side head pain from a fall Patient Tobacco Use Status: Never used Tobacco Tail Ripper Required: No Is last menstrual period known: No Post menopausal: No Patient : No Allergies Entzatr-CEX-TyZ Reductase Inhibitor Allergy (Unknown, Verified 01/05/25 12:02) myalgias codeine Adverse Reaction (Unknown, Verified 01/05/25 12:02) nausea and feels loopy and out of sorts Do you need a note to return to daycare/school/sports/work: No HPI HPI Comments History of Present Illness Details History of Present Illness - The patient is an 89-year-old female h ere with her son presenting with a fall resulting in head trauma. - The fall occurred 4 days ago while att empting to use the bathroom, resulting in a head impact against the wall, made a hole in the wall. 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 Her was home at the time and heard her fall. She is not on a blood thinner but she does take an baby aspirin daily. - The patient did not lose consciousness but was unable to stand and required assistance from the fire department. - Post-fall symptoms include persistent head pain, mild swelling, and a slight black eye, with no vision or hearing changes. - she denies any photosensitivity, phono sensitivity, nausea or vomiting. - The patient has been managing pain wit h Tylenol, which provides relief. She states she has little bit of pain all over her body - she does have some left-sided back connie n. - The patient has a history of reduced G FR according to records. - she uses a seated walker at baseline a nd feels she is back at her baseline as far as ambulation around her own home - denies any pain to her shoulders neck arms or legs Physical Exam General: Cooperative, healthy appearing, comfortable, no acute distress and well developed Orientation: Patient oriented x3 Limitations: No limitations Head: No TTP, atraumatic. Ears: Hearing grossly normal bilaterally, no changes reported Face and sinus: Slight edema and faint ecchymosis periorbital area of left eye Eyes: Appearance normal Neck: Normal visual inspection, full ROM, no cervical TTP Respiratory: Normal respiratory effort and able to speak in complete sentences, no pain on deep breath Neuro: Patient oriented x3, CN 2-12 intact Back/spine: No tenderness to palpation of the cervical spine, thoracic spine or lumbar spine, TTP left paraspinous and back over 2 large areas of ecchymosis on left mid to low back. Extremities: full ROM bilateral UE, normal appearing PFSH Medical History HLD (hyperlipidemia) T2DM (type 2 diabetes mellitus) CAD (coronary artery disease) Multinodular thyroid Surgical History History of surgery History of back surgery Hx of hysterectomy Hx of appendectomy Hx of cholecystectomy Family History Mother No problems noted. Father No problems noted. Social History Housing: House Alcohol intake: never Patient Tobacco Use Status: Never used Tobacco e-Cigarette/Vaping Use: Never Used Patient : No service: No Current occupational status: retired Cognitive needs: Yes (walker) Hearing needs: No Vision needs: Yes (rx glasses) Review of Systems Const All systems reviewed & are unremarkable except as noted in HPI and below Physical Exam Vital Signs: Last Vital Signs Temp 98.2 F 01/05/25 11:55 Pulse 70 01/05/25 11:55 BP 169/76 H 01/05/25 11:55 Pulse Ox 95 01/05/25 11:55 Oxygen Delivery Method Room Air 01/05/25 11:55 BMI result Body Mass Index 51.6 Assessment & Plan Assessment & Plan (1) Mild concussion: Code(s): S06.0XAA - Concussion with loss of consciousness status unknown, initial encounter Qualifiers: Encounter type: initial encounter Loss of consciousness presence/duration: without LOC Qualified Code(s): S06.0X0A - Concussion without loss of consciousness, initial encounter Plan: Plan Patient was informed and verbally consented to the use of an ambient scribe for clinic note documentation during this visit. 1. Fall with mild concussion, elevated blood pressure which came down on re- check, likely secondary to pain, otherwise vital signs are stable, patient well- appearing and physical exam notable for large areas of ecchymosis on her left low back a faint black eye. Cranial nerves 2 through 12 were intact. - BP a little elevated, likely secondary to pain - Monitor for any worsening symptoms such as headache not relieved with Tylenol, vision changes, hearing changes, nausea with vomiting or facial droop, weakness in an extremity, etc... - Advise rest and avoidance of stimulation to aid recovery from mild concussion. - Continue using Tylenol for pain management, avoiding NSAIDs due to kidney concerns. 2. Contusion On The Left Flank - Apply heat to aid in resorption of the hematoma. - Monitor for any changes in pain or function. (2) Fall against object: Code(s): W18.00XA - Striking against unspecified object with subsequent fall, initial encounter Plan: as above Coding Level of Care Code Est Pt Level 3 (17085) Diagnoses Concussion without loss of consciousness, initial encounter S06.0X0A Encounter type: initial encounter Loss of consciousness presence/duration: without LOC Fall against object W18.00XA
== END 2025-01-05 12:48 | disposition home or self-care (01) ==
PROVIDERS: PCP Internal Medicine; Visit Provider Physician Assistant
DX: S06.0X0A Concussion without loss of consciousness, initial encounter (principal); W18.00XA Striking against unspecified object with subsequent fall, initial encounter

== ENCOUNTER 2025-01-29 06:07 | Outpatient (REF) | payer MEDICARE, SELFPAY ==
--- OUTSIDE RECORDS SUMMARY | 2024-12-29 07:00 | XMS_ITS ---
Author Organization [facility] Address [address] [facility] [place] [address] Care Team Providers Care Bottler Helper Name Role Phone Bee Arteaga Primary Care Provider Natalie Quintana Unavailable [phone] Allergies Allergen (clinical drug ingredient) Drug/Non Drug [...] Not-Taking Encounters Encounter Location Date Provider Diagnosis [facility] [address] [address] 12/29/2024 Natalie Angelo Plan Of Treatment Next Appt Details Provider Name:Natalie mobley, 03/26/2025 03:30:00 PM, [address] [place] [address], [phone], Progress Notes * Erica BOATENG ADOB:[birth year] (89 yo F)Acc No.[id number]:12/29/2024 Progress Note Patient: Devyn DAVIDlizi Joiner Provider: Piter Angelo DPM :1935 A ge:89 Y S ex:Female Date:12/29/2024 Address:[address] [place], [place] [phone] Pcp:Bee Arteaga Subjective: * Chief Complaints: * [...] 12/29/2024 Generated for Ishan rincon/Faxing/eTransmitting on: 0 01/29/2025 06:10 AM EDT
--- NOTE | ~2025-01-29 | FL_ITS ---
EXAMINATION: XR FLUOROSCOPY WITH IMAGES CLINICAL INFORMATION: Left knee pain management COMPARISON: X-rays 12/18/2024. TECHNIQUE: Fluoroscopy provided to: Dr. Donohue Fluoroscopy time: 11.3 seconds DAP: 0.2112 mGycm2 Images: 1 FINDINGS: Solitary spot image left knee during intra-articular injection for pain management. Please refer to the full procedural report for details. FL/FL guidance in treatment room IMPRESSION: Fluoroscopic guidance. Electronically signed by: Jaiden Lauren MD 01/30/2025 08:39 AM EDT
--- OUTSIDE RECORDS SUMMARY | 2025-01-29 06:10 | XMS_ITS | Clinical Summary ---
Author Organization [address] [place] [address] [place] [phone] Phone Care Team Providers Care Drop Hammer Mechanic Name Role Phone Fidel Lucero MD Primary Care Provider [phone] Allergies Active Allergy Reactions Criticality Noted Date [...] CHB (complete heart block) ([facility] V24, CMS/[facility] V28) 02/08/2023 Hyperlipidemia 03/02/2021 Overview (05/03/2024): Last [...] cardiac pacemaker 03/02/2021 Overview (05/03/2024): 03/07/20 @ [facility] with [place]. Murphy Atrioventricular block, complete ([facility] V24, C [place]/[facility] V28) 02/26/2021 Overview (05/03/2024): [employer] Sa[employer]l dual chamber pacemaker placed 02/2020 Required lead extraction and replacement in 04/2020 Last Assessment & Plan: Most recent device check from June 2023 revealed normal device function. No new alerts or arrhythmias noted. Estimated battery longevity greater than 7 years. A paced 2.5% and V paced 81%. Coronary artery disease invo lving agdaagux coronary artery of agdaagux heart without angina pectoris 02/26/2021 Overview (05/03/2024): [...] Encounters Date Type Department Care Team Description 01/08/2025 1:15 AM EDT Ancillary Procedure [facility] [address] [place] [address] from Last 3 Months Surgical History Surgery Date Site/Laterality Comments CARDIAC CATHETERIZATION 02/2020 PROCEDURE: HISTORICAL CARDIAC CATH Medical History Medical History Date Comments Diabetes mellitus, type II ( [facility] V24, [facility] V28) DX:Diabetes mellitus, type I I ([facility]) Arthritis DX:Arthritis Family History Medical History Relation [...] Description 02/03/2025 11:20 AM EDT Office Visit [facility] [address] [place] [address] Marisa Bustos NP [address] [place] [address] Health Maintenance Due Date Last Done Comments [...] Annual Wellness Visit 03/27/2023 03/27/2022 COVID-19 Vaccine ( season) 2024 04/03/2023, 08/05/2020, 07/08/2020 Depression Screening 06/11/2024 Diabetes: Blood Sugar Control Test (HGBA1C) 07/04/2024 Influenza Vaccine (#1) 2025 2, 04/08/2021, 03/16/2020, Additional history exists HIB Vaccines Aged Out No longer eligi [...] 20 months Aged Out No longer eligible based on patient's age to complete this topic Varicella Vaccines Aged Out No longer eligible based on patient's age to complete this topic Medical Devices Implanted Type Area Lubricator Granulator Device Identifier Shelf Expiration Date Model / Serial / Lot Kinsey 2272 Assurity Mri(Tm) [id number] Implanted: (Quantity not on file) Cardiac Pacemaker [employer]- [employer] 2272 ASSURITY MRI(TM) / [id number] / Procedures Procedure Name Priority Date/Time Associated Diagnosis Comments CARDIAC DEVICE CHECK- REMOTE- MURJ Routine 01/08/2025 1:11 AM EDT from Last 3 Months Results * Cardiac device check - Remote- MURJ (01/08/2025 1:11 AM EDT) Date Time Interrogation Session [id number] CV DEVICE CHECK Type Interrogation Session Remote Scheduled CV DEVICE CHECK Implantable Pulse Generator Lubricator Granulator St.Saúl CV DEVICE CHECK Implantable Pulse Generator Type IPG CV DEVICE CHECK Implantable Pulse Generator Model 2272 Assurity MRI(TM) CV DEVICE CHECK Implantable Pulse Generator Serial Number [id number] CV DEVICE CHECK Implantable Pulse Generator Implant Date [id number] CV DEVICE CHECK Battery Remaining Percentage 56.00 CV DEVICE CHECK Battery Remaining Longevity 70.0 CV DEVICE CHECK Battery Voltage 2.990 CV D EVICE CHECK Battery SENIOR LEAD JAVA DEVELOPER Trigger 2.600 CV DEVICE CHECK Battery Status Middle of Service CV DEVICE CHECK Peter Statistic RA Percent Paced 20.00 CV DEVICE CHECK Peter Statistic RV Percent Paced 98.00 CV DEVICE CHECK Atrial Tachy Statistic AT/AF [place] Percent 0.00 CV DEVICE CHECK Lead Channel Sensing Intrinsic Amplitude 1.300 CV DEVICE CHECK Lead Channel Setting Sensing Sensitivity 0.30 CV DEVICE CHECK Lead Channel Impedance Value 400 CV DEVICE CHECK Lead Channel Pacing Threshold Amplitude 0.625 CV DEVICE CHECK Lead Channel Pacing Threshold Pulse Width 0.5 CV DEVICE CHECK Lead Channel RA Pacing Threshold Date 2024-12-30 CV DEVICE CHECK Lead Channel Setting Pacing [...] CHECK Lead Channel RV Pacing Threshold Date 2024-12-30 CV DEVICE CHECK Lead Channel Setting Pacing [...] Setting PAV Delay 200 CV DEVICE CHECK Epter Setting ROQUE Delay 150 CV DEVICE CHECK Date of Service 2025-01-13 CV DEVICE CHECK Anatomical Region Laterality Modality Device Interroga tion 12/30/2024 4:00 AM EDT Impressions 01/07/2025 4:15 PM EDT Normal Remote: No Events * Normal Device Function * Alerts or events: None * Battery: Battery is at 56%, 5.83 yrs * Sensing, impedance and thresholds reviewed * Programmed parameters reviewed * Presenting rhythm reviewed * Heart Rate Histograms reviewed * No significant changes noted Narrative Procedure Note Vidya Murphy MD - 01/08/2025 IMPRESSION: Normal Remote: No Events * Normal Device Function * Alerts or events: None * Battery: Battery is at 56%, 5.83 yrs * Sensing, impedance and thresholds reviewed * Programmed parameters reviewed * Presenting rhythm reviewed * Heart Rate Histograms reviewed * No significant changes noted Vidya Murphy MD CV IMPLANTABLE CARDIAC DEV ICE PROCEDURES Final Result from Last 3 Months Insurance MEDICARE [facility] Care Teams Drop Hammer Mechanic Relationship Specialty Start Date End Date Fidel Lucero MD [address] [place] [address] Dr Romario [place] PCP - General Critical Care Technician 11/28/13
--- OUTSIDE RECORDS SUMMARY | 2025-01-29 06:10 | XMS_ITS | Encounter Summary ---
Author Organization [facility] Address [address] [place] [address] Care Team Providers Care Funeral Service Apprentice Name Role Phone Fidel Lucero MD Primary Care Provider Encounter Details Date Type Department Care Team (Late Contact Info) Description 03/07/2016 Prep for Surgery HH SURGICAL SVC IP [address] [place] [phone] Lance Núñez MD [address] [place] [phone] Social History Tobacco Use Types Packs/Day Years [...] Department Care Team (Late Contact Info) Description 07/02/2025 9:00 AM EST Office Visit [facility], [address] [phone] Lance Núñez MD [address] [place] [phone] (Fax) documented as of this encounter Visit Diagnoses Not on filedocumented in this encounter Care Teams Funeral Service Apprentice Relationship Specialty Start Date End Date Fidel Lucero MD [address] [place] [address] [place] [address] PCP - General 03/01/16 documented as of this encounter
--- OUTSIDE RECORDS SUMMARY | 2025-01-29 06:10 | XMS_ITS | Patient Health Record ---
Author Organization [facility] Address [address] [place] [address] Care Team Providers Care Lasting Room Supervisor Name Role Phone Nic (RETIRED) Fidel IVORY Primary Care Provide Jonas Ga Jr Unavailable [phone] Allergies Allergen (clinical drug ingredient) Drug/Non Drug [...] Problem Status W/U Status Risk Notes Problem [id number] Change in bowel habits (R19.4) Active confirmed Problem [id number] Abnormal CT scan, colon (R93.3) Active confirmed Problem [id number] Dysphagia, unspecified type (R13.10) Active confirmed Plan Of Treatment No Information Insurance Providers Payer Name Payer Address Payer Phone Subscriber Number Group Number Insured Name Patient Relationship to Insured Coverage Start Date Coverage End Date MEDICARE OF [place] [address] [place]KARL [id number] ARLYN HUMPHRIES Self - patient is the insured MEDEX ATTN CLAIMS [address] [place] [address] [id number] ARLYN HUMPHRIES Self - patient is the insured Medical (General) History Medical History History ICD Code Denies LA,CVA,Lung disease,renal disease diabetes mellitus vertigo Surgical History Surgery Date(Month/Year) appendectomy cholecystectomy hysterectomy back surgery shunt placement in eye
== END 2025-01-29 06:08 | disposition home or self-care (01) ==
LOC: CF 06:07
PROVIDERS: Visit Provider Internal Medicine
DX: M17.0 Bilateral primary osteoarthritis of knee (principal)
CPT/HCPCS: 20610; J2003; J2795; J3301; Q9967

== ENCOUNTER 2025-01-29 09:35 | Outpatient (AMB) | payer MEDICARE, SELFPAY ==
[2025-01-29 10:11] VITALS: BP 200/82; PULSE 61; RESP 16; O2SAT 99; BMI 51.6
--- NOTE | 2025-01-29 10:11 | A.OFFVIS_ITS ---
Vital Signs 01/29/25 10:11 01/29/25 10:45 Height 5 ft Weight 264 lb BMI 51.6 BP 200/82 H 201/93 H Blood Pressure Location Lt brachial Lt brachial Position Sitting Sitting Respiration 16 16 Pulse 61 61 Pulse Source Pulse Oximeter Pulse Oximeter Pulse Oximetry (%) 99 99 Oxygen Delivery Method Room Air Room Air Intake Visit Reasons: Left knee injection w/ fluoro Allergies Cmuefhy-BZY-YvT Reductase Inhibitor Allergy (Unknown, Verified 01/05/25 12:02) myalgias codeine Adverse Reaction (Unknown, Verified 01/05/25 12:02) nausea and feels loopy and out of sorts HPI HPI Left knee injection w/ fluoro: Details: Patient presents for scheduled procedure. Denies any recent cough, cold, infection, fever or other significant changes in medical history since last office visit. [facility] [place] Medical History HLD (hyperlipidemia) T2DM (type 2 diabetes mellitus) CAD (coronary artery disease) Multinodular thyroid Surgical History History of surgery History of back surgery Hx of hysterectomy Hx of appendectomy Hx of cholecystectomy Family History Mother No problems noted. Father No problems noted. Social History Housing: House Alcohol intake: never Patient Tobacco Use Status: Never used Tobacco e-Cigarette/Vaping Use: Never Used service: No Current occupational status: retired Cognitive needs: Yes (walker) Hearing needs: No Vision needs: Yes (rx glasses) Physical Exam Vital Signs: Last Vital Signs Pulse 61 01/29/25 10:45 Resp 16 01/29/25 10:45 BP 201/93 H 01/29/25 10:45 Pulse Ox 99 01/29/25 10:45 Oxygen Delivery Method Room Air 01/29/25 10:45 BMI result Body Mass Index 51.6 Office Procedures AMB Joint Injection/Aspiration Joint Injection/Aspiration Primary Site: left knee Prep: site was prepped using sterile technique Injected: 40 mg of, Kenalog, with 3 mL of (Ropivacaine 0.5%) and in the joint Approach Used: medial parapatellar (With arthrogram) Procedure: The patient tolerated the procedure well Coding 53999 - Large joint Procedure code (CPT) selection complete Assessment & Plan Assessment & Plan (1) Osteoarthritis of knees, bilateral: Code(s): M17.0 - Bilateral primary osteoarthritis of knee Category: Medical Qualifiers: Osteoarthritis type: primary Qualified Code(s): M17.0 - Bilateral primary osteoarthritis of knee Plan Patient is status post left knee steroid injection under fluoroscopy with arthrogram. Patient tolerated procedure well and was discharged home in stable condition with discharge instructions. All questions were answered. We will follow-up via telephone or in clinic to assess response to therapy. A follow-up appointment was made during today's visit. Orders: Orders FL guidance in treatment room Today Daniela Waite APRN, BLUEPRINT TRIMMER M17.0 - Bilateral primary osteoarthritis of knee AMB Joint Injection/Aspiration Today Freddy Donohue MD M17.0 - Bilateral primary osteoarthritis of knee Coding Level of Care Code Procedure Only Diagnoses Primary osteoarthritis of both knees M17.0 Osteoarthritis type: primary CPT Codes Coding - 40887 Large joint: 47466 - Large joint ([id number])
[2025-01-29 10:45] VITALS: BP 201/93; PULSE 61; RESP 16; O2SAT 99
== END 2025-01-29 10:35 | disposition home or self-care (01) ==
LOC: HO.PMCPRC 09:35
PROVIDERS: PCP Internal Medicine; Visit Provider Internal Medicine
DX: M17.0 Bilateral primary osteoarthritis of knee (principal)
CPT/HCPCS: 20610; 77002

== ENCOUNTER 2025-02-19 06:25 | Outpatient (REF) | payer MEDICARE, SELFPAY ==
--- OUTSIDE RECORDS SUMMARY | 2024-05-15 06:00 | XMS_ITS ---
Author Organization [facility] Address [address] [place] [address] Care Team Providers Care Stockroom Attendant Name Role Phone Bee Arteaga Primary Care Provider Natalie Quintana [phone] Encounters Encounter Location Date Provider Diagnosis [address] [address] 05/15/2024 Natalie Angelo Plan Of Treatment Next Appt Details Provider Name:Natalie mobley, 03/26/2025 03:30:00 PM, [address] [place] [address], [phone], Progress Notes * Erica BOATENG ADOB:[birth year] (89 yo F)Acc No.[id number]:05/15/2024 Progress Note Patient: Guillermo BEEBE Erica Joiner Provider: Piter Angelo DPM :1935 A ge:89 Y S ex:Female Date:05/15/2024 Address:[address] [place] [phone] Pcp:Bee Arteaga Subjective: * Chief Complaints: * [...] 07/16/2023 Generated for Ishan rincon/Chad/Juan on: 0 02/19/2025 06:28 AM EDT
--- OUTSIDE RECORDS SUMMARY | 2024-12-29 07:00 | XMS_ITS ---
Author Organization [facility] Address [address] [facility] [place] [address] Care Team Providers Care Director Speech And Hearing Name Role Phone Bee Arteaga Primary Care Provider Natalie Quintana Unavailable [phone] Allergies Allergen (clinical drug ingredient) Drug/Non Drug [...] Not-Taking Encounters Encounter Location Date Provider Diagnosis [facility] [address] [address] 12/29/2024 Natalie Angelo Plan Of Treatment Next Appt Details Provider Name:Natalie mobley, 03/26/2025 03:30:00 PM, [address] [place] [address], [phone], Progress Notes * Erica BOATENG ADOB:[birth year] (89 yo F)Acc No.[id number]:12/29/2024 Progress Note Patient: Devyn DAVIDlizi Joiner Provider: Piter Angelo DPM :1935 A ge:89 Y S ex:Female Date:12/29/2024 Address:[address] [place], [place] [phone] Pcp:Bee Arteaga Subjective: * Chief Complaints: * [...] 0 12/29/2024 Generated for Ishan rincon/Faxing/eTransmitting on: 0 02/19/2025 06:28 AM EDT
--- NOTE | ~2025-02-19 | FL_ITS ---
EXAMINATION: FL GUIDANCE ONLY HISTORY: M17.0 - Bilateral primary osteoarthritis of knee COMPARISON: Correlation is made with plain films of the right knee dated 12/18/2024. TECHNIQUE: Fluoroscopy time: Less than 1 minute. Cumulative Dose: 0.249 mGy. DAP: 0.84829 mGym2 Images: 2. FINDINGS: Fluoroscopic spot films of the right knee demonstrate a needle in place and contrast material in the joint space. FL/FL guidance in treatment room IMPRESSION: Fluoroscopy during procedure. Please see procedure report for additional information. Electronically signed by: Temo Neville MD 02/19/2025 01:55 PM EDT
--- OUTSIDE RECORDS SUMMARY | 2025-02-19 06:28 | XMS_ITS | Clinical Summary ---
Author Organization [address] [place] [address] [address] [place] [address] Phone Care Team Providers Care Safety Patrol Officer Name Role Phone Bee Briseno MD Primary Care Provider [phone] Allergies Active Allergy Reactions Criticality Noted Date [...] Active Problems Problem Noted Date Diagnosed Date Hyperlipidemia 03/02/2021 Assessment & Plan (02/03/2025 2:08 PM EDT): Patient's lipid panel from 2021 is very well-controlled. Continue statin Hypertension 03/02/2021 Assessment & Plan (02/03/2025 1:57 PM EDT): Patient's blood pressure is somewhat robust, though likely recently well- controlled given her advanced age. Continue her beta-serjio and diuretic at current doses. Atrioventricular block, complete (CMS/HCC V24, C MS/HCC V28) 02/26/2021 Overview (02/03/2025): - [employer] dual chamber pacemaker placed 02/2020 - Required lead extraction and replacement in 04/2020 Assessment & Plan (02/03/2025 1:54 PM EDT): The patient's device is normally functioning on most recent remote device check. She is overdue for an in office device check. We will call her son to arrange this as she is reliant on him for rides. Coronary artery disease invo lving chehalis coronary artery of chehalis heart without angina pectoris 02/26/2021 Overview (02/03/2025): - Three-vessel disease managed medically - pharmacologic nuclear stress test in 03/2021 showed anterior/anterolateral ischemia vs shifting breast attenuation given body habitus, a focal anteroseptal defect which appears to be a mix of infarct and ischemia in the distal LAD distribution wtih normal LVEF 68% and normal TID ratio of 1.05. Assessment & Plan (02/03/2025 1:56 PM EDT): 3V CAD based on her cardiac catheterization in 2019. She has no concerning cardiorespiratory symptoms. Continue current treatment plan with aspirin, beta-serjio and statin. Takotsubo cardiomyopathy 02/26/2021 Overview (02/03/2025): - LVEF initially 30-35% in February 2020 - Normalized to 60% with basal inferior wall and all apical segments akinetic 2 weeks later Assessment & Plan (02/03/2025 1:57 PM EDT): The patient's LVEF has recovered on subsequent echocardiograms following her Takotsubo syndrome in 2019. She appears euvolemic on exam today on her current regimen of beta-serjio and diuretic. Continue current treatment plan. Resolved Problems Problem Noted Date Diagnosed Date Resolved Date CHB (complete heart block) ( CMS/HCC V24, CMS/HCC V28) 02/08/2023 02/03/2025 S/P placement of cardiac pacemaker 03/02/2021 02/03/2025 Overview (05/03/2024): 03/07/20 @ [facility] [place] Encounters Date Type Department Care Team Description 02/03/2025 11:20 AM EDT Office Visit [facility] [address] [place] [phone] Marisa Bustos NP Coronary artery disease involving chehalis coronary artery of chehalis heart without angina pectoris (Primary Dx); Atrioventricular block, complete (CMS/HCC V24, CMS/HCC V28); Primary hypertension; Takotsubo cardiomyopathy; Pure hypercholesterolemia 01/08/2025 1:15 AM EDT Ancillary Procedure [facility] [address] [place] [phone] from Last 3 Months Surgical History Surgery [...] Sign Reading Time Taken Comments Blood Pressure 145/78 02/03/2025 11:20 AM EDT Pulse 60 02/03/2025 11:20 AM EDT Temperature - - Respiratory Rate - - Oxygen Saturation 98% 02/03/2025 11:20 AM EDT Inhaled Oxygen Concentration - - Weight 117 kg (257 lb) 02/03/2025 11:20 AM EDT Height 152.4 cm (5') 02/03/2025 11:20 AM EDT Body Mass Index 50.19 02/03/2025 11:20 AM EDT Plan of Treatment Upcoming Encounters Date Type Department Care Team (Late st Contact Info) Description 04/14/2025 10:00 AM EST Ancillary Procedure [facility] [address] [place] [address] Health Maintenance Due Date Last Done Comments [...] 05/21/2022 Medicare Annual Wellness Visit 03/27/2023 03/27/2022 Depression Screening 06/11/2024 Diabetes: Blood Sugar Control Test (HGBA1C) 07/04/2024 COVID-19 Vaccine ( season) 2025 04/03/2023, 08/05/2020, 07/08/2020 Influenza Vaccine (#1) 2025 2, 04/08/2021, 03/16/2020, [...] this topic Medical Devices Implanted Type Area Aoc Operations Intelligence Officer Device Identifier Shelf Expiration Date Model / Serial / Lot [facility] 2272 Assurity Mri(Tm) [id number] Implanted: (Quantity not on file) Cardiac Pacemaker [employer]- [employer] 2272 ASSURITY MRI(TM) / [id number] / Procedures Procedure Name Priority Date/Time Associated Diagnosis Comments ECG 12-LEAD Routine 02/03/2025 2:08 PM EDT Coronary artery disease involving chehalis coronary artery of chehalis heart without angina pectoris CARDIAC DEVICE CHECK- REMOTE- MURJ Routine 01/08/2025 1:11 AM EDT from Last 3 Months Results * ECG 12 lead (02/03/2025 2:08 PM EDT) Ventricular Rate ECG 60 BPM GEMUSE Atrial Rate 60 BPM GEMUSE P-R Interval 196 ms GEMUSE QRS Duration 154 ms GEMUSE Q-T Interval 460 ms GEMUSE QTc 460 ms GEMUSE P Wave Rohwer -177 degrees GEMUSE R Rohwer -94 degrees GEMUSE T Rohwer 87 degrees GEMUSE ECG Interpretation AV dual-paced rhythm Abnormal ECG When compared with ECG of 18-FEB-2020 10:40, Electronic ventricular pacemaker has replaced Sinus rhythm Confirmed by Brandon HERNANDEZ JAY ([id number]) on 02/12/2025 10:30:40 AM GEMUSE 02/03/2025 11:2 8 AM EDT 02/12/2025 10:30 AM EDT Marisa Bustos NP ECG ORDERABLES Edited Result - Final INGRID * Cardiac device check - Remote- MURJ (01/08/2025 1:11 AM EDT) Date Time Interrogation Session [id number] CV DEVICE CHECK Type Interrogation Session Remote Scheduled CV DEVICE CHECK Implantable Pulse Generator Aoc Operations Intelligence Officer [employer] CV DEVICE CHECK Implantable Pulse Generator Type IPG CV DEVICE CHECK Implantable Pulse Generator Model 2272 Assurity MRI(TM) CV DEVICE CHECK Implantable Pulse Generator Serial Number [id number] CV DEVICE CHECK Implantable Pulse Generator Implant Date 20200227 CV DEVICE CHECK Battery Remaining Percentage 56.00 CV DEVICE CHECK Battery Remaining Longevity 70.0 CV DEVICE CHECK Battery Voltage 2.990 CV D EVICE CHECK Battery PSYCHIATRIC CLINICAL NURSE SPECIALIST Trigger 2.600 CV DEVICE CHECK Battery Status Middle of Service CV DEVICE CHECK Peter Statistic RA Percent Paced 20.00 CV DEVICE CHECK Peter Statistic RV Percent Paced 98.00 CV DEVICE CHECK Atrial Tachy Statistic AT/AF [place] Percent 0.00 CV DEVICE CHECK Lead Channel [...] Result from Last 3 Months Insurance MEDICARE [facility] Care Teams Safety Patrol Officer Relationship Specialty Start Date End Date Bee Briseno MD [address] [place] [phone] PCP - General Internal Medicine 02/03/25
--- OUTSIDE RECORDS SUMMARY | 2025-02-19 06:28 | XMS_ITS | Encounter Summary ---
Author Organization [facility] Address [address] [place] [address] Care Team Providers Care Hedis Abstractor Name Role Phone Fidel Lucero MD Primary Care Provider [phone] Encounter Details Date Type Department Care Team (Late Contact Info) Description 03/07/2016 Prep for Surgery [facility] [address] [place] [phone] Lance Núñez MD [address] [place] [address] Social History Tobacco Use Types Packs/Day Years [...] AM EST Office Visit [facility], [address] [address] Lance Núñez MD [address] [place] [address] (Fax) documented as of this encounter Visit Diagnoses Not on filedocumented in this encounter Care Teams Hedis Abstractor Relationship Specialty Start Date End Date Fidel Lucero MD [address] [place] [address] [place] [address] PCP - General 03/01/16 documented as of this encounter
--- OUTSIDE RECORDS SUMMARY | 2025-02-19 06:29 | XMS_ITS | Patient Health Record ---
Author Organization [facility] Address [address] [place] [address] Care Team Providers Care Blueprint Trimmer Name Role Phone Bee Arteaga Primary Care Provider Natalie Quintana Unavailable [phone] Ana Feltcher Unavailable [phone] Allergies Allergen (clinical drug ingredient) Drug/Non Drug Allergy documented on EMR Reaction Allergy Type Onset Date Status codeine Codeine loopy Drug Allergy Active Results Component Value Reference Range Notes HEMOGLOBIN A1C (GLYCOHEMOGLO BIN) Reviewed date:10/14/2024 11:14:30 AM Interpretation: Performing Lab: Notes/Report: HEMOGLOBIN A1C % (HH) 7.5 Reason For Referral No Information Medications Medication SIG (Take, Route, Frequency, Duration) Notes Start Date End Date Status Hair Skin Nails Acti ve Colcrys 0.6 MG 1 tablet Orally Once a day; Duration: 10 days 10/16/2013 Not-Taking HYDROmorphone HCl 2 MG 1 tablet as needed Orally every 6 hrs Not-Taking Januvia Not-Taking Metoprolol Succinate 50 MG 1 capsule Ora lly Once a day Active Metformin & Diet Manage Prod night time Active glipiZIDE 10 MG as directed Orally Active Gabapentin Not-Takin g Gabapentin 300 MG 1 capsule Orally Once a day; Duration: 30 day(s) Active Meclizine HCl 25 MG 1 tablet as needed Orally Once a day Not-Taking tylenol PM Active Rosuvastatin Calcium Active prednisoLONE Active Omeprazole Active Trulicity 0.75 MG/0.5ML Subcutaneous; Duration: 56 Active Extra-Depth Diabetic Shoes with 3 Pair Custom heat-molded multi-density innersoles Active Stool Softener Activ e Allopurinol 100 MG Oral; Duration: 90 Active Combigan 0.2-0.5 % 1 drop into affected eye Ophthalmic Twice a day Not-Taking Voltaren 1 % as directed Externally Active Colcrys 0.6 MG 1 tablet Orally i po qd; Duration: 10 days Not-Taking Atorvastatin Calcium 40 MG 1 tablet Oral ly Once a day; Duration: 30 day(s) Not-Taking Zanaflex Once a week Not-Taki ng CoQ-10 Active hydroCHLOROthiazide Not-Taking Clopidogrel Bisulfate Active Calcium Not-Taking Brimonidine Tartrate 0.2 % Ophthalmic; Duration: 50 Active amLODIPine Besy-Benazepril HCl Not-Taking Aspirin Adult Low Strength 81mg Active Doxycycline Monohydrate 100 MG 1 capsule Orally Once a day; Duration: 10 days 11/18/2020 Not-Taking Furosemide 20 MG Oral; Duration: 30 Active Eye Drops Active Immunizations Vaccine Route Administration Date Status Comme nts Influenza Unknown 2016 Administered Influenza Unknown 03/30/2017 Administered Influenza Unknown 02/19/2018 Administered Influenza Unknown 05/02/2019 Administered Influenza Unknown 03/27/2022 Administered Influenza Unknown 03/11/2024 Administered Pneumococcal Unknown 02/19/2018 Administered COVID-19 Moderna Vaccine Unknown 08/05/[address] 07/08/20 Social History Tobacco Use: Social History Observation [...] Problem Status W/U Status Risk Notes Problem Acquired hammer toe of right foot (5850985150938338 ) Other hammer toe(s) (acquired), right foot (M20.41) Active confirmed Problem Acquired hammer toe of left foot (6331748664296287 ) Other hammer toe(s) (acquired), left foot (M20.42) Active confirmed Problem Polyneuropathy due to type 2 diabetes mellitus (607872049) Type 2 diabetes mellitus with diabetic polyneuropathy (E11.42) Active confirmed Vital Signs Blood pressure diastolic 70 mm Hg 10/14/2024 Height 5 ft 1 in in 10/14/2024 Blood pressure systolic 130 mm Hg 10/14/2024 Weight 250 lbs 10/14/2024 BMI 47.23 kg/m2 10/14/2024 Procedures Procedure Date Ordered Date Performed Result Body Sit e 71573-OWKUQXT NAIL, 6 OR MORE 07/14/2024 N/A 96093-NESF SKIN LESIONS, 2 TO 4 07/14/2024 N/A Encounters Encounter Location Date Provider Diagnosis [address] [address] 07/14/2024 Natalie Angelo Type 2 diabetes mellitus with diabetic polyneuropathy E11.42 and Tinea unguium B35.[address] [address] 10/14/2024 Ana Fletcher Other hammer toe(s) (acquired), right foot M20.41 ; Other hammer toe(s) (acquired), left foot M20.42 ; Type 2 diabetes mellitus with diabetic polyneuropathy E11.42 and Tinea unguium B35.[address] [address] 05/15/2024 Natalie Angelo [address] [address] 12/29/2024 Natalie Angelo Assessments Encounter Date Diagnosis (ICD Code) Assessment Notes Treatment Notes Treatment Clinical Notes Section Notes 07/14/2024 Type 2 diabetes mellitus with diabetic polyneuropathy (ICD-10 - E11.42) 07/14/2024 Tinea unguium (ICD-10 - B35.1) 10/14/2024 Other hammer toe(s) (acquired), right foot (ICD-10 - M20.41) 10/14/2024 Other hammer toe(s) (acquired), left foot (ICD-10 - M20.42) 10/14/2024 Type 2 diabetes mellitus with diabetic polyneuropathy (ICD-10 - E11.42) 10/14/2024 Tinea unguium (ICD-10 - B35.1) Plan Of Treatment Pending Test Test Name Order Date X ray : Foot, left 2V 10/16/2013 *Uric Acid, Serum 10/16/2013 *Uric Acid, Serum 11/18/2020 *CBC With Differential/Platelet 11/19/19 21 *Sedimentation Rate-Westergren 1 *Sedimentation Rate-Westergren 4 X ray : Foot, left 3V 11/18/2020 62911-TTYUNGP NAIL, 6 OR MORE 07/14/2024 09434-FPJQBJH NAIL, 6 OR MORE 08/27/2013 74835-QNIBSSH NAIL, 6 OR MORE 02/26/2013 26015-UMUTOEU NAIL, 6 OR MORE 05/28/2013 83314-IZTQMMV NAIL, 6 OR MORE 03/11/2012 50275-VNYQOPN NAIL, 6 OR MORE 05/27/2012 88678-VRQPIST NAIL, 6 OR MORE 08/21/2012 28637-NOUITZJ NAIL, 6 OR MORE 11/25/2012 21398-VHPYVMF NAIL, 6 OR MORE 12/11/2013 38513-NPEGSCV NAIL, 6 OR MORE 02/16/2014 08079-QSRAWZM NAIL, 6 OR MORE 05/18/2014 71013-YDADZDE NAIL, 6 OR MORE 08/24/2014 57019-PAWLTEJ NAIL, 6 OR MORE 12/16/2014 10301-LQUMDHA NAIL, 6 OR MORE 03/17/2015 92645-NFDIKDB NAIL, 6 OR MORE 06/21/2015 64084-NLBLTIZ NAIL, 6 OR MORE 09/13/2015 63558-IUPHRRA NAIL, 6 OR MORE 11/26/2017 58239-AHTFUMU NAIL, 6 OR MORE 2018 74850-DZEUXCZ NAIL, 6 OR MORE 05/27/2018 06377-XIHYTPV NAIL, 6 OR MORE 12/09/2015 48325-UOIQKFV NAIL, 6 OR MORE 03/06/2016 10592-YSQXMHK NAIL, 6 OR MORE 06/19/2016 60920-ACQICWA NAIL, 6 OR MORE 09/18/2016 12900-AAIAYFT NAIL, 6 OR MORE 12/20/2016 57222-JHNGPBK NAIL, 6 OR MORE 03/12/2017 58720-LWBJQVK NAIL, 6 OR MORE 05/28/2017 55683-JZZMBOF NAIL, 6 OR MORE 08/29/2017 74654-Vlxkiaan Plate 11/25/2012 17128-Ebrpgodw Plate 08/21/2012 91332-ANOM SKIN LESIONS, OVER 4 08/04/19 22 97894-PAXO SKIN LESIONS, 2 TO 4 07/14/19 25 48110-LCBU SKIN LESIONS, 2 TO 4 08/22/19 13 55459-TOAY SKIN LESIONS, 2 TO 4 05/27/20 12 52008-YDBO SKIN LESIONS, 2 TO 4 03/11/20 12 00829-IAGX SKIN LESIONS, 2 TO 4 05/28/20 13 72372-HOBI SKIN LESIONS, 2 TO 4 02/27/20 13 94582-SQAN SKIN LESIONS, 2 TO 4 08/28/19 14 77016-GCEU SKIN LESIONS, 2 TO 4 09/13/19 16 47659-XSRA SKIN LESIONS, 2 TO 4 06/21/19 16 27699-EUVU SKIN LESIONS, 2 TO 4 03/17/20 15 07967-YFEQ SKIN LESIONS, 2 TO 4 12/17/19 15 28482-XOXE SKIN LESIONS, 2 TO 4 08/25/19 15 03970-QSYR SKIN LESIONS, 2 TO 4 05/18/20 14 70302-AWMP SKIN LESIONS, 2 TO 4 02/17/20 14 53186-RZYH SKIN LESIONS, 2 TO 4 12/12/19 14 97272-YYLP SKIN LESIONS, 2 TO 4 11/27/19 18 22952-THYD SKIN LESIONS, 2 TO 4 08/30/19 18 75407-HASN SKIN LESIONS, 2 TO 4 05/28/20 17 19329-DOPU SKIN LESIONS, 2 TO 4 03/12/20 17 63974-PBVQ SKIN LESIONS, 2 TO 4 09/19/19 17 59522-RVQN SKIN LESIONS, 2 TO 4 12/21/19 17 04469-XFHC SKIN LESIONS, 2 TO 4 06/19/19 17 15881-HFGS SKIN LESIONS, 2 TO 4 03/06/20 16 77658-EEUH SKIN LESIONS, 2 TO 4 12/09/19 16 41309-VQSJ SKIN LESIONS, 2 TO 4 08/27/19 19 82117-EHUN SKIN LESIONS, 2 TO 4 11/12/19 19 63195-BNOE SKIN LESIONS, 2 TO 4 02/04/20 19 29264-CSAR SKIN LESIONS, 2 TO 4 06/20/19 20 64437-XWQW SKIN LESIONS, 2 TO 4 11/12/19 20 24971-UNST SKIN LESIONS, 2 TO 4 02/04/20 20 15627-GMVN SKIN LESIONS, 2 TO 4 05/10/20 20 34290-DFNB SKIN LESIONS, 2 TO 4 08/19/19 21 04887-GETQ SKIN LESIONS, 2 TO 4 11/16/19 21 73455-JFJH SKIN LESIONS, 2 TO 4 05/27/20 18 34503-UAME SKIN LESIONS, 2 TO 4 02/26/20 18 26493-CRQB SKIN LESIONS, 2 TO 4 02/03/20 21 36581-KGAT SKIN LESIONS, 2 TO 4 04/27/20 Next Appt Details Provider Name:Natalie Le leandra, 03/26/2025 03:30:00 PM, [address] [facility], [place], [address], Insurance Providers Payer Name Payer Address Payer Phone Subscriber Number Group Number Insured Name Patient Relationship to Insured Coverage Start Date Coverage End Date Medicare National Govt Svcs [employer] [address] [facility] [place] [address] [id number] Erica Diallo Self - patient is the insured 2 [employer] Blue Shield [address] [place] [address] [id number] Erica Diallo Self - patient is the insured Medical (General) History Medical History History ICD Code Arthritis cancer glaucoma Gout neuropathy chicken pox measles mumps vertigo type II diabetes Surgical History Surgery Date(Month/Year) appendectomy 1957 gall bladder 1968 ovarian surgery 1979 hysterectomy 1999 shunt back surgery 11/06/2013 Back sx 03/13/17 left eye surgery 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
--- OUTSIDE RECORDS SUMMARY | 2025-02-19 06:29 | XMS_ITS | Clinical Summary ---
Author Organization Formerly [facility] Address [address] [place] [address] Care Team Providers Care Booky Name Role Phone Fidel Lucero MD Primary Care Provider [phone] Allergies Active Allergy Reactions Criticality Noted Date Comments Adhesives/Tape Other (See Comments) 03/06/2016 redness Brimonidine Rash/Dermatitis Medium 09/29/2024 Codeine Delirium/Confusion/P sych osis Low 03/06/2016 Other [...] left eye daily. 2.5 mL 3 5 Active dorzolamide-flash lol (COSOPT) 2-0.5 % ophthalmic solutionIndicati ons:Primary open angle glaucoma of both eyes, unspecified glaucoma stage Administer 1 drop into the left eye 2 (two) times a day. 10 mL 3 5 09/30/19 26 Active Active Problems Problem Noted Date Diagnosed Date Type 2 diabetes mellitus wit hout complication, without long-term current use of insulin 09/24/2024 Encounters Date Type Department Care Team Description 01/08/2025 9:00 AM EDT [facility] Visit [facility], [address] [address] Lance Núñez MD Primary open angle glaucoma of both eyes, unspecified glaucoma stage (Primary Dx); Dry eye syndrome, bilateral; Type 2 diabetes mellitus without complication, without long-term current use of insulin ([facility]); Other complications of corneal transplant, bilateral from Last 3 Months Social History Tobacco [...] 60 10/06/2020 1:15 PM EDT Temperature 36.5 C (97.7 F) 10/06/2020 11:14 AM EDT Respiratory Rate 21 10/06/2020 1:15 PM EDT Oxygen Saturation 94% 10/06/2020 1:15 PM EDT Inhaled Oxygen Concentration - - Weight 113 kg (250 lb) 09/29/2020 6:19 PM EDT Height 154.9 cm (5' 1 ) 09/29/2020 6:19 PM EDT Body Mass Index 47.24 09/29/2020 6:19 PM EDT Plan of Treatment Upcoming Encounters Date Type Department Care Team (Late st Contact Info) Description 07/02/2025 9:00 AM EST [facility] Visit [facility], [address] [phone] Lance Núñez MD [address] [place] [phone] (Fax) Health Maintenance Due Date Last Done Comments Advance Care Planning 1935 Creatinine with GFR 1947 Foot Exam 1947 Hemoglobin A1C 1947 Lipid Panel 1947 DTaP/Tdap/Td Vaccines (1 - Tdap) 02/26/1956 Pneumococcal Vaccines 50+ (1 of 2 - PCV) 02/26/1956 Zoster (Shingles) Vaccine (1 of 2) 1987 DXA Bone Density (Females,Ag es 65 and older) 2002 RSV Vaccine 60 years and old er and Patients (1 - 1-dose 75+ series) 02/26/2012 Influenza Vaccine 01/09/2025 02/09/2017, 2016 COVID-19 Vaccine ( - 2023-2 5 season) 2025 Ophthalmology Exam 06/26/2025 06/26/2024 Hepatitis B Vaccines Aged Out No long er eligible based on patient's age to complete this topic Medical Devices Implanted Type Area Formwork Carpenter Device Identifier Shelf Expiration Date Model / Serial / Lot Cornea Dsaek Implanted:Qty : 1 on 03/08/2016 by Lance Núñez MD at Ophthalmology Left: Eye Other 03/18/2016 [id number] / / Description:Eversight Cornea Precut Eversight Pre-Cut Cornea Eversight - [id number] Implanted:Qty : 1 on 10/06/2020 by Lance Núñez MD at Tissue Left: Eye EVERSIGHT 10/13/2020 CORNEA PRECUT EVERSIGHT / [id number] / Insurance MEDICARE PART A & B [employer] MEDICARE PART A & B [employer] COMPREHENSIVE Advance Directives * Full Code (Latest Code Status on File) Date Activated Date Inactivated Comments 10/06/2020 9:15 AM * Full Code Date Activated Date Inactivated Comments 03/08/2016 8:19 AM 03/08/2016 2:50 PM Care Teams Booky Relationship Specialty Start Date End Date Fidel Lucero MD [address] [place] [address] Dr Doss, DAINA [address] PCP - General 03/01/16
--- OUTSIDE RECORDS SUMMARY | 2025-02-19 06:29 | XMS_ITS | Patient Health Record ---
Author Organization [facility] Address [address] [place] [address] Care Team Providers Care Can Striper Name Role Phone Nic (RETIRED) Fidel IVORY [...] Problem Status W/U Status Risk Notes Problem [id number] Change in bowel habits (R19.4) Active confirmed Problem [id number] Abnormal CT scan, colon (R93.3) Active confirmed Problem [id number] Dysphagia, unspecified type (R13.10) Active confirmed Plan Of Treatment No Information Insurance Providers Payer Name Payer Address Payer Phone Subscriber Number Group Number Insured Name Patient Relationship to Insured Coverage Start Date Coverage End Date MEDICARE OF [place] [address] CECILIA MONTESINOSKARL [id number] ARLYN HUMPHRIES Self - patient is the insured MEDEX ATTN CLAIMS [address] [place] [address] [id number] ARLYN HUMPHRIES Self - patient is the insured Medical (General) History Medical History History ICD Code Denies AK,CVA,Lung disease,renal disease diabetes mellitus vertigo Surgical History Surgery Date(Month/Year) appendectomy cholecystectomy hysterectomy back surgery shunt placement in eye
== END 2025-02-19 06:26 | disposition home or self-care (01) ==
LOC: CF 06:25
PROVIDERS: Visit Provider Internal Medicine
DX: M17.0 Bilateral primary osteoarthritis of knee (principal)
CPT/HCPCS: 20610; J2795; J3301; Q9967

== ENCOUNTER 2025-02-19 12:36 | Outpatient (AMB) | payer MEDICARE, SELFPAY ==
[2025-02-19 12:45] VITALS: BP 185/80; PULSE 65; RESP 16; O2SAT 95; BMI 51.6
--- NOTE | 2025-02-19 12:45 | MHC.OFFVIS ---
Vital Signs 02/19/25 12:45 02/19/25 13:34 Height 5 ft Weight 264 lb BMI 51.6 BP 185/80 H 163/66 H Blood Pressure Location Lt radial Lt radial Position Sitting Sitting Respiration 16 16 Pulse 65 68 Pulse Source Pulse Oximeter Pulse Oximeter Pulse Oximetry (%) 95 95 Oxygen Delivery Method Room Air Room Air Comment Patient usually has high blood pressure. Intake Visit Reasons: right knee inj w/ fluoro Allergies Emzpoii-RKM-YtZ Reductase Inhibitor Allergy (Unknown, Verified 01/05/25 12:02) myalgias codeine Adverse Reaction (Unknown, Verified 01/05/25 12:02) nausea and feels loopy and out of sorts HPI HPI right knee inj w/ fluoro: Details: Patient presents for scheduled procedure. Denies any recent cough, cold, infection, fever or other significant changes in medical history since last office visit. [facility] Medical History HLD (hyperlipidemia) T2DM (type 2 diabetes mellitus) CAD (coronary artery disease) Multinodular thyroid Surgical History History of surgery History of back surgery Hx of hysterectomy Hx of appendectomy Hx of cholecystectomy Family History Mother No problems noted. Father No problems noted. Social History Housing: House Alcohol intake: never Patient Tobacco Use Status: Never used Tobacco e-Cigarette/Vaping Use: Never Used service: No Current occupational status: retired Cognitive needs: Yes (walker) Hearing needs: No Vision needs: Yes (rx glasses) Physical Exam Vital Signs: Last Vital Signs Pulse 68 02/19/25 13:34 Resp 16 02/19/25 13:34 BP 163/66 H 02/19/25 13:34 Pulse Ox 95 02/19/25 13:34 Oxygen Delivery Method Room Air 02/19/25 13:34 BMI result Body Mass Index 51.6 Office Procedures AMB Joint Injection/Aspiration Joint Injection/Aspiration Primary Site: right knee Prep: site was prepped using sterile technique Injected: 40 mg of, Kenalog and with 3 mL of (ropivacaine 0.5%) Approach Used: medial parapatellar (with arthrogram) Procedure: The patient tolerated the procedure well Coding 17669 - Large joint Procedure code (CPT) selection complete Assessment & Plan Assessment & Plan (1) Osteoarthritis of knees, bilateral: Code(s): M17.0 - Bilateral primary osteoarthritis of knee Category: Medical Qualifiers: Osteoarthritis type: primary Qualified Code(s): M17.0 - Bilateral primary osteoarthritis of knee Plan Patient is status post right knee fluoro guided steroid injection. Patient tolerated procedure well and was discharged home in stable condition with discharge instructions. All questions were answered. We will follow-up via telephone or in clinic to assess response to therapy. A follow-up appointment was made during today's visit. Orders: Orders FL guidance in treatment room 02/19/25 M17.0 - Bilateral primary osteoarthritis of knee Coding Level of Care Code Procedure Only Diagnoses Primary osteoarthritis of both knees M17.0 Osteoarthritis type: primary CPT Codes Coding - 35634 Large joint: 71632 - Large joint ([id number])
[2025-02-19 13:34] VITALS: BP 163/66; PULSE 68; RESP 16; O2SAT 95
--- OUTSIDE RECORDS SUMMARY | 2025-02-19 16:47 | XMS_ITS | Encounter Summary ---
Author Organization [facility] Address [address] [place] [address] Care Team Providers Care Jail Manager Name Role Phone Fidel Lucero MD Primary Care Provider [phone] Encounter Details Date Type Department Care Team (Late Contact Info) Description 03/07/2016 Prep for Surgery [facility] SURGICAL SVC IP [address] [place] [phone] Lance Núñez MD [address] [place] [address] Social History Tobacco Use Types Packs/Day Years [...] AM EST Office Visit [facility], [address] [phone] Lance Núñez MD [address] [place] [address] (Fax) documented as of this encounter Visit Diagnoses Not on filedocumented in this encounter Care Teams Jail Manager Relationship Specialty Start Date End Date Fidel Lucero MD [address] [place] [address] [place] [address] PCP - General 03/01/16 documented as of this encounter
--- OUTSIDE RECORDS SUMMARY | 2025-02-19 16:48 | XMS_ITS | Clinical Summary ---
Author Organization [address] [place] [address] Address [address] [place] [address] Phone Care Team Providers Care Fly Winder Name Role Phone Bee Briseno MD Primary Care Provider [phone] Allergies Active Allergy Reactions Criticality Noted Date [...] for rides. Coronary artery disease invo lving osage coronary artery of osage heart without angina pectoris 02/26/2021 Overview (02/03/2025): [...] pacemaker 03/02/2021 02/03/2025 Overview (05/03/2024): [place] [facility] [place] Encounters Date Type Department Care Team Description 02/03/2025 11:20 AM EDT Office Visit [facility] - [address] [place] [phone] Marisa Bustos NP Coronary artery disease involving osage coronary artery of osage heart without angina pectoris (Primary Dx); Atrioventricular block, complete (CMS/HCC V24, CMS/HCC V28); Primary hypertension; Takotsubo cardiomyopathy; Pure hypercholesterolemia 01/08/2025 1:15 AM EDT Ancillary Procedure [facility] - [address] [place] [phone] from Last 3 Months Surgical History Surgery [...] Description 04/14/2025 10:00 AM EST Ancillary Procedure [facility] - [facility] [address] [facility] [address] [place] [address] Health Maintenance Due Date Last [...] this topic Medical Devices Implanted Type Area Side Seam Tender Device Identifier Shelf Expiration Date Model / Serial / Lot [facility]-[employer] 2272 Assurity Mri(Tm) [id number] Implanted: (Quantity not on file) Cardiac Pacemaker [employer] 2272 ASSURITY MRI(TM) / [id number] / Procedures Procedure Name Priority Date/Time Associated Diagnosis Comments ECG 12-LEAD Routine 02/03/2025 2:08 PM EDT Coronary artery disease involving osage coronary artery of osage heart without angina pectoris CARDIAC DEVICE CHECK- REMOTE- MURJ Routine 01/08/2025 1:11 AM EDT from Last 3 Months Results * ECG 12 lead (02/03/2025 2:08 PM EDT) Ventricular Rate ECG 60 BPM GEMUSE Atrial Rate 60 BPM GEMUSE P-R Interval 196 ms GEMUSE QRS Duration 154 ms GEMUSE Q-T Interval 460 ms GEMUSE QTc 460 ms GEMUSE P Wave [place] -177 degrees GEMUSE R [place] -94 degrees GEMUSE T [place] 87 degrees GEMUSE ECG Interpretation AV dual-paced rhythm Abnormal ECG When compared with ECG of 18-FEB-2020 10:40, Electronic ventricular pacemaker has replaced Sinus rhythm Confirmed by Brandon HERNANDEZ JAY ([id number]) on 02/12/2025 10:30:40 AM GEMUSE 02/03/2025 11:2 8 AM EDT 02/12/2025 10:30 AM EDT Marisa Bustos NP ECG ORDERABLES Edited Result - Final INGRID * Cardiac device check - Remote- MURJ (01/08/2025 1:11 AM EDT) Date Time Interrogation Session [id number] CV DEVICE CHECK Type Interrogation Session Remote Scheduled CV DEVICE CHECK Implantable Pulse Generator Side Seam Tender [employer] CV DEVICE CHECK Implantable Pulse Generator Type IPG CV DEVICE CHECK Implantable Pulse Generator Model 2272 Assurity MRI(TM) CV DEVICE CHECK Implantable Pulse Generator Serial Number [id number] CV DEVICE CHECK Implantable Pulse Generator Implant Date 20200227 CV DEVICE CHECK Battery Remaining Percentage 56.00 CV DEVICE CHECK Battery Remaining Longevity 70.0 CV DEVICE CHECK Battery Voltage 2.990 CV D EVICE CHECK Battery GUM MAKER Trigger 2.600 CV DEVICE CHECK Battery Status Middle of Service CV DEVICE CHECK Peter Statistic RA Percent Paced 20.00 CV DEVICE CHECK Peter Statistic RV Percent Paced 98.00 CV DEVICE CHECK Atrial Tachy Statistic AT/AF [place] Percent 0.00 CV DEVICE CHECK Lead Channel [...] Result from Last 3 Months Insurance MEDICARE [facility] Care Teams Fly Winder Relationship Specialty Start Date End Date Bee Briseno MD [address] [place] [phone] PCP - General Internal Medicine 02/03/25
--- OUTSIDE RECORDS SUMMARY | 2025-02-19 16:48 | XMS_ITS | Clinical Summary ---
Author Organization [facility]ly [facility] Address [address] [place] [address] Care Team Providers Care Half Section Ironer Name Role Phone Fidel Lucero MD Primary Care Provider [phone] Allergies Active Allergy Reactions Criticality Noted Date [...] AM EDT [facility] Visit [facility], [address] [phone] Lance Núñez MD Primary open angle glaucoma of both eyes, unspecified glaucoma stage (Primary Dx); Dry eye syndrome, bilateral; Type 2 diabetes mellitus without complication, without long-term current use of insulin ([facility]); Other complications of corneal transplant, bilateral from [...] AM EST Office Visit [facility], [address] [phone] Lance Núñez MD [address] [place] [phone] (Fax) Health Maintenance Due Date Last Done [...] this topic Medical Devices Implanted Type Area Molder Closed Molds Device Identifier Shelf Expiration Date Model / Serial / Lot Cornea Dsaek Implanted:Qty : 1 on 03/08/2016 by Lance Núñez MD at [facility] Ophthalmology Left: Eye Other 03/18/2016 [id number] / / Description:Eversight Cornea Precut Eversight Pre-Cut Cornea Eversight - [id number] Implanted:Qty : 1 on 10/06/2020 by Lance Núñez MD at [facility] Tissue Left: Eye EVERSIGHT 10/13/2020 CORNEA PRECUT EVERSIGHT / [id number] / Insurance MEDICARE PART A & B [employer] MEDICARE PART A & B [employer] COMPREHENSIVE Advance Directives * Full Code (Latest Code Status on File) Date Activated Date Inactivated Comments 10/06/2020 9:15 AM * Full Code Date Activated Date Inactivated Comments 03/08/2016 8:19 AM 03/08/2016 2:50 PM Care Teams Half Section Ironer Relationship Specialty Start Date End Date Fidel Lucero MD [address] [place] [address] Dr Doss, DAINA [address] PCP - General 03/01/16
== END 2025-02-19 13:40 | disposition home or self-care (01) ==
LOC: HO.PMCPRC 12:36
PROVIDERS: PCP Internal Medicine; Visit Provider Internal Medicine
DX: M17.0 Bilateral primary osteoarthritis of knee (principal)
CPT/HCPCS: 20610

== ENCOUNTER 2025-03-16 12:12 | Outpatient (AMB) | payer MEDICARE, SELFPAY ==
--- OUTSIDE RECORDS SUMMARY | 2024-05-15 06:00 | XMS_ITS ---
Author Organization [facility] Address [address] [place] [address] Care Team Providers Care Hat And Cap Parts Cutter Hand Name Role Phone Bee Arteaga Primary Care Provider Natalie Quintana [phone] Encounters Encounter Location Date Provider Diagnosis [address] [address] 05/15/2024 Natalie Angelo Plan Of Treatment Next Appt Details Provider Name:Natalie mobley, 06/18/2025 11:15:00 AM, [address] [place] [address], [phone], Progress Notes * Erica BOATENG ADOB:[birth year] (89 yo F)Acc No.[id number]:05/15/2024 Progress Note Patient: Guillermo BEEBE Erica Joiner Provider: Piter Angelo DPM :1935 A ge:89 Y S ex:Female Date:05/15/2024 Address:[address] [place] [phone] Pcp:Bee Arteaga Subjective: * Chief Complaints: * [...] 1 07/16/2023 Generated for Ishan rincon/Chad/Juan on: 02:39 PM EDT
--- OUTSIDE RECORDS SUMMARY | 2024-12-29 07:00 | XMS_ITS ---
Author Organization [facility] Address [address] [facility] [place] [address] Care Team Providers Care Senior Corporate Accountant Name Role Phone Bee Arteaga Primary Care Provider Natalie Quintana Unavailable [phone] Allergies Allergen (clinical drug ingredient) Drug/Non Drug [...] Not-Taking Encounters Encounter Location Date Provider Diagnosis [facility] [address] [address] 12/29/2024 Natalie Angelo Plan Of Treatment Next Appt Details Provider Name:Natalie mobley, 06/18/2025 11:15:00 AM, [address] [place] [address], [phone], Progress Notes * Erica BOATENG ADOB:[birth year] (89 yo F)Acc No.[id number]:12/29/2024 Progress Note Patient: Devyn DAVIDlizi Joiner Provider: Piter Angelo DPM :1935 A ge:89 Y S ex:Female Date:12/29/2024 Address:[address] [place], [place] [phone] Pcp:Bee Arteaga Subjective: * Chief Complaints: * [...] Sign off status: Pending * Provider: Piter Agnelo DPM Date: 0 12/29/2024 Generated for Ishan rincon/Faxing/eTransmitting on: 1 02:39 PM EDT
--- NOTE | 2025-03-16 12:15 | MHC.OFFVIS ---
Vital Signs 03/16/25 12:17 Height 5 ft Weight 264 lb BMI 51.6 BP 162/78 H Blood Pressure Location Lt radial Position Sitting Respiration 16 Pulse 80 Pulse Source Pulse Oximeter Pulse Oximetry (%) 92 Oxygen Delivery Method Room Air Intake Visit Reasons: s/p ailyn knee inj Frothing Machine Operator Required: No Accompanied by: Child Allergies Thefsoo-JGT-WjP Reductase Inhibitor Allergy (Unknown, Verified 03/17/25 08:38) myalgias codeine Adverse Reaction (Unknown, Verified 03/17/25 08:38) nausea and feels loopy and out of sorts Medication List - Last Reconciled 03/16/25 by Annabel Lugo LPN allopurinol 100 mg PO DAILY aspirin 81 mg PO DAILY blood sugar diagnostic (FreeStyle Test strips) test bid, E11.9 furosemide 20 mg PO DAILY gabapentin 300 mg PO TID glipizide 10 mg PO .2tab bid metformin 500 mg PO BID metoprolol succinate ER 50 mg PO DAILY rosuvastatin 10 mg PO BEDTIME Trulicity (dulaglutide) 0.75 mg (0.5 mL) subcut QWEEK NS HPI HPI s/p ailyn knee inj: Details: History of Present Illness The patient is an 89-year-old female presenting for follow-up after bilateral fluoroscopy-guided corticosteroid injections to both knees. She reports a very good response to the injections, with significant improvement in knee pain. The patient inquired about the duration of the injection's effect, which was explained to typically last around three months, though this can vary. The patient also mentioned experiencing shoulder pain previously, but it has improved over the last two days. She considered receiving a corticosteroid injection for the shoulder but decided against it due to the recent improvement. The patient has a history of avoiding frequent medical interventions, preferring to manage pain without excessive reliance on corticosteroid injections. She has previously received gel injections for her knees, which lasted about six months, but had concerns about the procedure's guidance. Pain Description - Knee pain: Significant improvement post-corticosteroid injection, previously severe enough to warrant intervention. - Shoulder pain: Previously bothersome, now improved without intervention. Physical Exam - Sitting comfortably in wheelchair Pain Management - Affect: Patient reports feeling better with improved knee function. - Analgesia: Corticosteroid injections to knees, effective for pain relief. - Adverse Effects: None reported from current treatment. - Activities of Daily Living: Improved knee function post-injection, shoulder pain not currently impacting daily activities. - Aberrant Drug Related Behaviors: None reported or observed. REPLACED BY [facility] Medical History (Updated 03/17/25 @ 10:58 by Carlos Lloyd MD) CKD stage 3b, GFR 30-44 ml/min Gout Hypertension Diabetic neuropathy HLD (hyperlipidemia) T2DM (type 2 diabetes mellitus) CAD (coronary artery disease) Multinodular thyroid Surgical History History of surgery History of back surgery Hx of hysterectomy Hx of appendectomy Hx of cholecystectomy Family History (Updated 03/17/25 @ 10:23 by Cassandra Joseph MA) Mother No problems noted. Father No problems noted. Social History Housing: House Alcohol intake: never Patient Tobacco Use Status: Never used Tobacco e-Cigarette/Vaping Use: Never Used service: No Current occupational status: retired Cognitive needs: Yes (walker) Hearing needs: No Vision needs: Yes (rx glasses) Physical Exam Vital Signs: Last Vital Signs Pulse 80 03/16/25 12:17 Resp 16 03/16/25 12:17 BP 162/78 H 03/16/25 12:17 Pulse Ox 92 03/16/25 12:17 Oxygen Delivery Method Room Air 03/16/25 12:17 BMI result Body Mass Index 51.6 Assessment & Plan Assessment & Plan (1) Osteoarthritis of knees, bilateral: Code(s): M17.0 - Bilateral primary osteoarthritis of knee Category: Medical Qualifiers: Osteoarthritis type: primary Qualified Code(s): M17.0 - Bilateral primary osteoarthritis of knee Plan Plan Patient was informed and verbally consented to the use of an ambient scribe for clinic note documentation during this visit. 1. Bilateral Knee Pain - Continue monitoring knee pain and delay further injections until symptoms return to pre-injection levels. - Schedule follow-up injections no sooner than three months from the last treatment, unless symptoms significantly worsen. 2. Shoulder Pain - Monitor shoulder pain and consider corticosteroid injection if symptoms worsen significantly. - Encourage patient to report any significant changes in shoulder pain for timely intervention. Discussion Notes I discussed with the patient that the corticosteroid injections typically last around three months, but this can vary. We agreed to monitor her symptoms and delay further injections until necessary. I advised her to notify us if her knee pain returns to pre-injection levels, as it takes about three weeks to schedule another injection. We also discussed the option of a corticosteroid injection for her shoulder if the pain worsens, but she is currently managing well without it. Patient Instructions - Monitor knee and shoulder pain and report any significant changes. - Schedule follow-up injections if knee pain returns to pre-injection levels. - Consider shoulder injection if pain worsens significantly. Coding Level of Care Code Est Pt Level 3 (47680) Diagnoses Primary osteoarthritis of both knees M17.0 Osteoarthritis type: primary
[2025-03-16 12:17] VITALS: BP 162/78; PULSE 80; RESP 16; O2SAT 92; BMI 51.6
--- OUTSIDE RECORDS SUMMARY | 2025-03-16 14:39 | XMS_ITS | Encounter Summary ---
Author Organization Formerly [facility] Address [address] [place] [address] Care Team Providers Care Curing Oven Attendant Name Role Phone Fidel Lucero MD Primary Care Provider [phone] Encounter Details Date Type Department Care Team (Late Contact Info) Description 03/07/2016 Prep for Surgery HH SURGICAL SVC IP [address] [place] [phone] Lance Núñez MD [address] [place] [address] Social History Tobacco Use Types Packs/Day Years [...] AM EST [facility] Visit [facility], [address] [phone] Lance Núñez MD [address] [place] [phone] (Fax) documented as of this encounter Visit Diagnoses Not on filedocumented in this encounter Care Teams Curing Oven Attendant Relationship Specialty Start Date End Date Fidel Lucero MD [address] [place] [address] [place] [address] PCP - General 03/01/16 documented as of this encounter
--- OUTSIDE RECORDS SUMMARY | 2025-03-16 14:39 | XMS_ITS | Clinical Summary ---
Author Organization [facility] Address [address] [place] [address] Care Team Providers Care Commercial Drafter Name Role Phone Fidel Lucero MD Primary Care Provider [phone] Allergies Active Allergy Reactions Criticality Noted Date [...] AM EDT [facility] Visit [facility], [address] [phone] Lance Núñez MD Primary open angle glaucoma of both eyes, unspecified glaucoma stage (Primary Dx); Dry eye syndrome, bilateral; Type 2 diabetes mellitus without complication, without long-term current use of insulin ([facility]); Other complications of corneal transplant, bilateral from [...] AM EST Office Visit [facility], [address] [phone] Lance Núñez MD [address] [place] [phone] (Fax) Health Maintenance Due Date Last Done [...] this topic Medical Devices Implanted Type Area Ribbon Weaver Device Identifier Shelf Expiration Date Model / Serial / Lot Cornea Dsaek Implanted:Qty : 1 on 03/08/2016 by Lance Núñez MD at [facility] Ophthalmology Left: Eye Other 03/18/2016 [id number] / / Description:Eversight Cornea Precut Eversight Pre-Cut Cornea Eversight - [id number] Implanted:Qty : 1 on 10/06/2020 by Lance Núñez MD at [facility] Tissue Left: Eye EVERSIGHT 10/13/2020 CORNEA PRECUT EVERSIGHT / [id number] / Insurance MEDICARE PART A & B [employer] MEDICARE PART A & B [employer] COMPREHENSIVE Advance Directives * Full Code (Latest Code Status on File) Date Activated Date Inactivated Comments 10/06/2020 9:15 AM * Full Code Date Activated Date Inactivated Comments 03/08/2016 8:19 AM 03/08/2016 2:50 PM Care Teams Commercial Drafter Relationship Specialty Start Date End Date Fidel Lucero MD [address] [place] [address] Dr Doss, DA[place] [address] PCP - General 03/01/16
--- OUTSIDE RECORDS SUMMARY | 2025-03-16 14:39 | XMS_ITS | Clinical Summary ---
Author Organization [address] [place] [address] Address [address] [place] [address] Phone Care Team Providers Care Phlebotomy Manager Name Role Phone Bee Briseno MD Primary Care Provider [phone] Allergies Active Allergy Reactions Criticality Noted Date [...] for rides. Coronary artery disease invo lving capitan grande coronary artery of capitan grande heart without angina pectoris 02/26/2021 Overview (02/03/2025): [...] pacemaker 03/02/2021 02/03/2025 Overview (05/03/2024): 03/07/20 @ [facility] with Dr. Murphy Encounters Date Type Department Care Team Description 02/03/2025 11:20 AM EDT Office Visit [facility] - [address] [place] [id number] Marisa Bustos NP Coronary artery disease involving capitan grande coronary artery of capitan grande heart without angina pectoris (Primary Dx); Atrioventricular block, complete (CMS/HCC V24, CMS/HCC V28); Primary hypertension; Takotsubo cardiomyopathy; Pure hypercholesterolemia 01/08/2025 1:15 AM EDT Ancillary Procedure [facility] - [address] [place] [id number] from Last 3 Months Surgical History Surgery [...] Description 04/14/2025 10:00 AM EST Ancillary Procedure [facility] - [facility] [address] [facility] [address] [place] [address] Health Maintenance Due Date Last [...] this topic Medical Devices Implanted Type Area Air Defense Control Officer Device Identifier Shelf Expiration Date Model / Serial / Lot [facility] 2272 Assurity Mri(Tm) [id number] Implanted: (Quantity not on file) Cardiac Pacemaker [employer]- [employer] 2272 ASSURITY MRI(TM) / [id number] / Procedures Procedure Name Priority Date/Time Associated Diagnosis Comments ECG 12-LEAD Routine 02/03/2025 2:08 PM EDT Coronary artery disease involving capitan grande coronary artery of capitan grande heart without angina pectoris CARDIAC DEVICE CHECK- REMOTE- MURJ Routine 01/08/2025 1:11 AM EDT from Last 3 Months Results * ECG 12 lead (02/03/2025 2:08 PM EDT) Ventricular Rate ECG 60 BPM GEMUSE Atrial Rate 60 BPM GEMUSE P-R Interval 196 ms GEMUSE QRS Duration 154 ms GEMUSE Q-T Interval 460 ms GEMUSE QTc 460 ms GEMUSE P Wave High View -177 degrees GEMUSE R High View -94 degrees GEMUSE T High View 87 degrees GEMUSE ECG Interpretation AV dual-paced rhythm Abnormal ECG When compared with ECG of 18-FEB-2020 10:40, Electronic ventricular pacemaker has replaced Sinus rhythm Confirmed by Brandon HERNANDEZ JAY ([id number]) on 02/12/2025 10:30:40 AM GEMUSE 02/03/2025 11:2 8 AM EDT 02/12/2025 10:30 AM EDT Marisa Bustos NP ECG ORDERABLES Edited Result - Final INGRID * Cardiac device check - Remote- MURJ (01/08/2025 1:11 AM EDT) Date Time Interrogation Session [id number] CV DEVICE CHECK Type Interrogation Session Remote Scheduled CV DEVICE CHECK Implantable Pulse Generator Air Defense Control Officer [employer] CV DEVICE CHECK Implantable Pulse Generator Type IPG CV DEVICE CHECK Implantable Pulse Generator Model 2272 Assurity MRI(TM) CV DEVICE CHECK Implantable Pulse Generator Serial Number [id number] CV DEVICE CHECK Implantable Pulse Generator Implant Date 20200227 CV DEVICE CHECK Battery Remaining Percentage 56.00 CV DEVICE CHECK Battery Remaining Longevity 70.0 CV DEVICE CHECK Battery Voltage 2.990 CV D EVICE CHECK Battery PROPOSAL REVIEW ANALYST Trigger 2.600 CV DEVICE CHECK Battery Status Middle of Service CV DEVICE CHECK Peter Statistic RA Percent Paced 20.00 CV DEVICE CHECK Peter Statistic RV Percent Paced 98.00 CV DEVICE CHECK Atrial Tachy Statistic AT/AF [place] Percent 0.00 CV DEVICE CHECK Lead Channel [...] Result from Last 3 Months Insurance MEDICARE [facility] Care Teams Phlebotomy Manager Relationship Specialty Start Date End Date Bee Briseno MD [address] [place] [phone] PCP - General Internal Medicine 02/03/25
--- OUTSIDE RECORDS SUMMARY | 2025-03-16 14:39 | XMS_ITS | Patient Health Record ---
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 Name Role Phone Nic (RETIRED) Fidel IVORY Primary Care Provide Jonas Ga Jr Unavailable [phone] Allergies Allergen (clinical drug ingredient) Drug/Non Drug [...] Problem Status W/U Status Risk Notes Problem [id number] Change in bowel habits (R19.4) Active confirmed Problem [id number] Abnormal CT scan, colon (R93.3) Active confirmed Problem [id number] Dysphagia, unspecified type (R13.10) Active confirmed Plan Of Treatment No Information Insurance Providers Payer Name Payer Address Payer Phone Subscriber Number Group Number Insured Name Patient Relationship to Insured Coverage Start Date Coverage End Date MEDICARE OF [place] [address] [place] MONTESIN[place]KARL [id number] [phone] [id number] ARLYN HUMPHRIES Self - patient is the insured MEDEX ATT[employer] CLAIMS [address] [place] [address] [id number] ARLYN HUMPHRIES Self - patient is the insured Medical (General) History Medical History History ICD Code Denies PR,CVA,Lung disease,renal disease diabetes mellitus vertigo Surgical History Surgery Date(Month/Year) appendectomy cholecystectomy hysterectomy back surgery shunt placement in eye
--- OUTSIDE RECORDS SUMMARY | 2025-03-16 14:40 | XMS_ITS | Patient Health Record ---
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 Name Role Phone Bee Arteaga Primary Care Provider Natalie Quintana Unavailable [phone] Ana Fletcher Unavailable [phone] Allergies Allergen (clinical drug ingredient) Drug/Non Drug [...] Duration) Notes Start Date End Date Status Furosemide 20 MG Oral; Duration: 30 Active HYDROmorphone HCl 2 MG 1 tablet as needed Orally every 6 hrs Not-Taking Eye Drops Active Januvia Not-Taking CoQ-10 Active hydroCHLOROthiazide Not-Taking Clopidogrel Bisulfate Active Calcium Not-Taking glipiZIDE 10 MG as directed Orally Active Gabapentin 300 MG 1 capsule Orally Once a day; Duration: 30 day(s) Active Hair Skin Nails Acti ve Colcrys 0.6 MG 1 tablet Orally Once a day; Duration: 10 days 10/16/2013 Not-Taking Gabapentin Not-Takin g Meclizine HCl 25 MG 1 tablet as needed Orally Once a day Not-Taking prednisoLONE Active Omeprazole Active Metoprolol Succinate 50 MG 1 capsule Ora lly Once a day Active Voltaren 1 % as directed Externally Active Metformin & Diet Manage Prod night time Active Stool Softener Activ e Trulicity 0.75 MG/0.5ML Subcutaneous; Duration: 56 Active tylenol PM Active Rosuvastatin Calcium Active Zanaflex Once a week Not-Taki ng Extra-Depth Diabetic Shoes with 3 Pair Custom heat-molded multi-density innersoles Active Atorvastatin Calcium 40 MG 1 tablet Oral ly Once a day; Duration: 30 day(s) Not-Taking Brimonidine Tartrate 0.2 % Ophthalmic; Duration: 50 Active amLODIPine Besy-Benazepril HCl Not-Taking Aspirin Adult Low Strength 81mg Active Doxycycline Monohydrate 100 MG 1 capsule Orally Once a day; Duration: 10 days 11/18/2020 Not-Taking Allopurinol 100 MG Oral; Duration: 90 Active Combigan 0.2-0.5 % 1 drop into affected eye Ophthalmic Twice a day Not-Taking Colcrys 0.6 MG 1 tablet Orally i po qd; Duration: 10 days Not-Taking Immunizations Vaccine Route Administration Date Status Comme [...] Problem Acquired hammer toe of right foot ([id number] ) Other hammer toe(s) (acquired), right foot (M20.41) Active confirmed Problem Acquired hammer toe of left foot ([id number] ) Other hammer toe(s) (acquired), left foot (M20.42) Active confirmed Problem Polyneuropathy due to type 2 diabetes mellitus (625767911) Type 2 diabetes mellitus with diabetic polyneuropathy (E11.42) Active confirmed Vital Signs Blood pressure diastolic 65 mm Hg 03/05/2025 Height 5 ft 1 in in 03/05/2025 Blood pressure systolic 128 mm Hg 03/05/2025 Weight 250 lbs 03/05/2025 BMI 47.23 kg/m2 03/05/2025 Procedures Procedure Date Ordered Date Performed Result Body Sit e 40392-AYFSXVS NAIL, 6 OR MORE 07/14/2024 N/A 09289-IDRT SKIN LESIONS, 2 TO 4 07/14/2024 N/A 95685-OVSBHJF NAIL, 6 OR MORE 03/05/2025 N/A 17048-CIIU SKIN LESIONS, 2 TO 4 03/05/2025 N/A Encounters Encounter Location Date Provider Diagnosis [address] [address] 07/14/2024 Natalie Angelo Type 2 diabetes mellitus with diabetic polyneuropathy E11.42 and Tinea unguium B35.[address] [address] 10/14/2024 Ana Fletcher Other hammer toe(s) (acquired), right foot M20.41 ; Other hammer toe(s) (acquired), left foot M20.42 ; Type 2 diabetes mellitus with diabetic polyneuropathy E11.42 and Tinea unguium B35.[address] [address] 03/05/2025 Natalie Angelo Type 2 diabetes mellitus with diabetic polyneuropathy E11.42 and Tinea unguium B35.[address] [address] 05/15/2024 Natalie Angelo [address] [address] 12/29/2024 Natalie Angelo Assessments Encounter Date Diagnosis (ICD Code) Assessment Notes Treatment Notes Treatment Clinical Notes Section Notes 07/14/2024 Type 2 diabetes mellitus with diabetic polyneuropathy (ICD-10 - E11.42) 07/14/2024 Tinea unguium (ICD-10 - B35.1) 10/14/2024 Other hammer toe(s) (acquired), right foot (ICD-10 - M20.41) 10/14/2024 Other hammer toe(s) (acquired), left foot (ICD-10 - M20.42) 03/05/2025 Type 2 diabetes mellitus with diabetic polyneuropathy (ICD-10 - E11.42) 03/05/2025 Tinea unguium (ICD-10 - B35.1) 10/14/2024 Type 2 diabetes mellitus with diabetic polyneuropathy (ICD-10 - E11.42) 10/14/2024 Tinea unguium (ICD-10 - B35.1) Plan Of Treatment Pending Test Test Name Order Date X ray : Foot, left 2V 10/16/2013 *Uric Acid, Serum 10/16/2013 *Uric Acid, Serum 11/18/2020 *CBC With Differential/Platelet 11/19/19 21 *Sedimentation Rate-Westergren 1 *Sedimentation Rate-Westergren 4 X ray : Foot, left 3V 11/18/2020 27529-PZTBWTJ NAIL, 6 OR MORE 12/20/2016 13857-CUDUWLY NAIL, 6 OR MORE 05/27/2012 58399-AJNULIF NAIL, 6 OR MORE 05/27/2018 27618-MKVXEDD NAIL, 6 OR MORE 02/26/2013 32343-ZHJGJUS NAIL, 6 OR MORE 11/25/2012 29782-HTIVBXB NAIL, 6 OR MORE 03/11/2012 24967-IGKLPBO NAIL, 6 OR MORE 03/12/2017 86201-TLFZHSF NAIL, 6 OR MORE 05/28/2017 73377-HXEVVAY NAIL, 6 OR MORE 07/14/2024 00656-OJNCACZ NAIL, 6 OR MORE 03/05/2025 23347-OFUVNIR NAIL, 6 OR MORE 12/09/2015 25742-OHDUENQ NAIL, 6 OR MORE 05/18/2014 96533-BCGOJDV NAIL, 6 OR MORE 12/11/2013 75862-PMOSCKE NAIL, 6 OR MORE 08/27/2013 21219-QIXLXKK NAIL, 6 OR MORE 08/21/2012 22938-RKCAPTT NAIL, 6 OR MORE 05/28/2013 51781-BKMNDSB NAIL, 6 OR MORE 02/16/2014 74031-HVPCGFP NAIL, 6 OR MORE 08/24/2014 60211-TFTVYVE NAIL, 6 OR MORE 03/17/2015 90784-QXHPSJD NAIL, 6 OR MORE 06/21/2015 45440-FFAFNAW NAIL, 6 OR MORE 09/13/2015 63461-CTDVBUY NAIL, 6 OR MORE 03/06/2016 17307-YHMWHDP NAIL, 6 OR MORE 06/19/2016 37294-THJIPKR NAIL, 6 OR MORE 09/18/2016 47531-YFCZTPJ NAIL, 6 OR MORE 08/29/2017 83983-HKPUTZA NAIL, 6 OR MORE 2018 74206-SVJEOGH NAIL, 6 OR MORE 11/26/2017 43312-WWEMCQD NAIL, 6 OR MORE 12/16/2014 46365-Fudezfzu Plate 08/21/2012 96458-Gbghjksy Plate 11/25/2012 49173-JNIC SKIN LESIONS, OVER 4 08/04/19 22 88669-RKLS SKIN LESIONS, 2 TO 4 07/14/19 25 41727-WFVO SKIN LESIONS, 2 TO 4 08/30/19 18 93985-EADJ SKIN LESIONS, 2 TO 4 05/28/20 17 25402-QEHB SKIN LESIONS, 2 TO 4 12/12/19 14 75482-FMLB SKIN LESIONS, 2 TO 4 05/18/20 14 89663-MPGV SKIN LESIONS, 2 TO 4 12/09/19 16 68850-OGMG SKIN LESIONS, 2 TO 4 03/05/20 25 34466-GWUN SKIN LESIONS, 2 TO 4 02/27/20 13 41170-QDVB SKIN LESIONS, 2 TO 4 03/11/20 12 64532-CRAM SKIN LESIONS, 2 TO 4 02/04/20 19 07285-IAOP SKIN LESIONS, 2 TO 4 12/21/19 17 20421-VEMQ SKIN LESIONS, 2 TO 4 02/26/20 18 50480-QNBB SKIN LESIONS, 2 TO 4 05/27/20 18 96566-FARP SKIN LESIONS, 2 TO 4 05/27/20 12 88437-KFQZ SKIN LESIONS, 2 TO 4 08/27/19 19 96698-ANIZ SKIN LESIONS, 2 TO 4 11/12/19 19 59494-CUOD SKIN LESIONS, 2 TO 4 06/20/19 20 36392-VQYE SKIN LESIONS, 2 TO 4 11/12/19 20 48887-FJTE SKIN LESIONS, 2 TO 4 02/04/20 20 73925-XPSK SKIN LESIONS, 2 TO 4 05/10/20 20 37803-IORW SKIN LESIONS, 2 TO 4 08/19/19 21 04271-DATL SKIN LESIONS, 2 TO 4 11/16/19 21 70673-TFSR SKIN LESIONS, 2 TO 4 02/03/20 21 77365-ZTHO SKIN LESIONS, 2 TO 4 04/27/20 21 94960-MVZS SKIN LESIONS, 2 TO 4 09/19/19 17 42887-ZNLY SKIN LESIONS, 2 TO 4 03/12/20 17 02065-JSOQ SKIN LESIONS, 2 TO 4 06/19/19 17 20862-QKDC SKIN LESIONS, 2 TO 4 03/06/20 16 46812-NHBX SKIN LESIONS, 2 TO 4 09/13/19 16 24470-QKVI SKIN LESIONS, 2 TO 4 06/21/19 16 32341-UHMU SKIN LESIONS, 2 TO 4 03/17/20 15 78856-INKW SKIN LESIONS, 2 TO 4 08/25/19 15 99926-TDFT SKIN LESIONS, 2 TO 4 02/17/20 14 59193-OKOL SKIN LESIONS, 2 TO 4 05/28/20 13 36157-PORM SKIN LESIONS, 2 TO 4 08/22/19 13 48755-PEYP SKIN LESIONS, 2 TO 4 08/28/19 14 41282-NSPV SKIN LESIONS, 2 TO 4 12/17/19 15 34139-AKMZ SKIN LESIONS, 2 TO 4 11/27/19 18 Next Appt Details Provider Name:Natalie mobley, 06/18/2025 11:15:00 AM, [address] [place], [address], Insurance Providers Payer Name Payer Address Payer Phone Subscriber Number Group Number Insured Name Patient Relationship to Insured Coverage Start Date Coverage End Date Medicare [facility] [address] [facility] [address] [id number] Erica Diallo Self - patient is the insured 2 [employer] Blue Shield [address] [place] [address] [id number] Erica Diallo Self - patient is the insured Medical (General) History Medical History History ICD Code Arthritis cancer glaucoma Gout neuropathy chicken pox measles mumps vertigo type II diabetes Surgical History Surgery Date(Month/Year) appendectomy 1957 gall bladder 1969 ovarian surgery 1979 hysterectomy 2000 shunt back surgery 11/06/2013 Back sx 03/13/17 left eye surgery 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
== END 2025-03-16 12:42 | disposition home or self-care (01) ==
LOC: HO.PMC 12:12
PROVIDERS: PCP Internal Medicine; Visit Provider Internal Medicine
DX: M17.0 Bilateral primary osteoarthritis of knee (principal)
CPT/HCPCS: 99213

== ENCOUNTER → 2025-03-16 12:12 | Outpatient (BNVA) | payer MEDICARE, SELFPAY | PROVIDERS: PCP Internal Medicine; Visit Provider Internal Medicine | DX: M17.0 Bilateral primary osteoarthritis of knee (principal) | CPT/HCPCS: 99212 ==

== ENCOUNTER 2025-03-17 10:10 | Outpatient (AMB) | payer MEDICARE, SELFPAY ==
--- OUTSIDE RECORDS SUMMARY | 2024-05-15 06:00 | XMS_ITS ---
Author Organization [facility] Address [address] [place] [address] Care Team Providers Care Paralegal Internship Name Role Phone Bee Arteaga Primary Care Provider Natalie Quintana [phone] Encounters Encounter Location Date Provider Diagnosis [address] [address] 05/15/2024 Natalie Angelo Plan Of Treatment Next Appt Details Provider Name:Natalie mobley, 06/18/2025 11:15:00 AM, [address] [place] [address], [phone], Progress Notes * Erica BOATENG ADOB:[birth year] (89 yo F)Acc No.[id number]:05/15/2024 Progress Note Patient: Guillermo BEEBE Erica Joiner Provider: Piter Angelo DPM :1935 A ge:89 Y S ex:Female Date:05/15/2024 Address:[address] [place] [phone] Pcp:Bee Arteaga Subjective: * Chief Complaints: * [...] DPM Date: 1 07/16/2023 Generated for Ishan Garcia/Juan on: 12:04 PM EDT
--- OUTSIDE RECORDS SUMMARY | 2024-12-29 07:00 | XMS_ITS ---
Author Organization [facility] Address [address] [facility] [place] [address] Care Team Providers Care Farmworker Fur Name Role Phone Bee Arteaga Primary Care Provider Natalie Quintana Unavailable [phone] Allergies Allergen (clinical drug ingredient) Drug/Non Drug Allergy documented on EMR Reaction Allergy Type Onset Date Status codeine Codeine loopy Drug Allergy Active Medications Medication SIG (Take, Route, Frequency, Duration) Notes Start Date End Date Status Colcrys 0.6 MG 1 tablet Orally i po qd; Duration: 10 days Not-Taking Atorvastatin Calcium 40 MG 1 tablet Oral ly Once a day; Duration: 30 day(s) Not-Taking Zanaflex Once a week NotLeigh rincon Extra-Depth Diabetic Shoes with 3 Pair Custom heat-molded multi-density innersoles Active Stool Softener Activ e tylenol PM Active Rosuvastatin Calcium Active prednisoLONE Active Omeprazole Active Trulicity 0.75 MG/0.5ML Subcutaneous; Duration: 56 Active Metoprolol Succinate 50 MG 1 capsule Ora lly Once a day Active Metformin & Diet Manage Prod night time Active glipiZIDE 10 MG as directed Orally Active Gabapentin 300 MG 1 capsule Orally Once a day; Duration: 30 day(s) Active Hair Skin Nails Acti ve CoQ-10 Active Clopidogrel Bisulfate Active Brimonidine Tartrate 0.2 % Ophthalmic; Duration: 50 Active Furosemide 20 MG Oral; Duration: 30 Active Eye Drops Active Allopurinol 100 MG Oral; Duration: 90 Active Voltaren 1 % as directed Externally Active Gabapentin Not-Mendez cox Meclizine HCl 25 MG 1 tablet as needed Orally Once a day Not-Taking Aspirin Adult Low Strength 81mg Active hydroCHLOROthiazide Not-Taking Calcium Not-Taking Colcrys 0.6 MG 1 tablet Orally Once a day; Duration: 10 days 10/16/2013 Not-Taking HYDROmorphone HCl 2 MG 1 tablet as needed Orally every 6 hrs Not-Taking Januvia Not-Taking Combigan 0.2-0.5 % 1 drop into affected eye Ophthalmic Twice a day Not-Taking amLODIPine Besy-Benazepril HCl Not-Taking Doxycycline Monohydrate 100 MG 1 capsule Orally Once a day; Duration: 10 days 11/18/2020 Not-Taking Encounters Encounter Location Date Provider Diagnosis [facility] [address] [address] 12/29/2024 Natalie Angelo Plan Of Treatment Next Appt Details Provider Name:Natalie mobley, 06/18/2025 11:15:00 AM, [address] [place] [address], [phone], Progress Notes * Erica BOATENG ADOB:[birth year] (89 yo F)Acc No.[id number]:12/29/2024 Progress Note Patient: Devyn DAVIDlizi Joiner Provider: Piter Angelo DPM :1935 A ge:89 Y S ex:Female Date:12/29/2024 Address:[address] [place], [place] [phone] Pcp:Bee Arteaga Subjective: * Chief Complaints: * * Medical History: A rthritis, Cancer, Glaucoma, Gout, Neuropathy, Chicken pox, Measles, Mumps, Vertigo, type II diabetes. * Medications: T aking Voltaren 1 % Gel as directed Externally , Taking Allopurinol 100 MG Tablet Oral , Taking Aspirin Adult Low Strength 81mg , Taking Brimonidine Tartrate 0.2 % Solution Ophthalmic , Taking Clopidogrel Bisulfate , Taking CoQ-10 , Taking Eye Drops , Taking Furosemide 20 MG Tablet Oral , Taking Hair Skin Nails , Taking Gabapentin 300 MG Capsule 1 capsule Orally Once a day , Taking glipiZIDE 10 MG Tablet as directed Orally , Taking Metformin & Diet Manage Prod , Notes to Pharmacist: night time, Taking Metoprolol Succinate 50 MG Capsule ER 24 Hour Sprinkle 1 capsule Orally Once a day , Taking Omeprazole , Taking prednisoLONE , Taking Rosuvastatin Calcium , Taking tylenol , Notes to Pharmacist: PM, Taking Trulicity 0.75 MG/0.5ML Solution Pen-injector Subcutaneous , Taking Stool Softener , Taking Extra-Depth Diabetic Shoes with 3 Pair Custom heat-molded multi-density innersoles , Not-Taking/PRN Zanaflex , Notes to Pharmacist: Once a week, Not-Taking/PRN Atorvastatin Calcium 40 MG Tablet 1 tablet Orally Once a day , Not-Taking/PRN Colcrys 0.6 MG Tablet 1 tablet Orally i po qd , Not-Taking/PRN Combigan 0.2-0.5 % Solution 1 drop into affected eye Ophthalmic Twice a day , Not-Taking/PRN Doxycycline Monohydrate 100 MG Capsule 1 capsule Orally Once a day , Not-Taking/PRN amLODIPine Besy-Benazepril HCl , Not-Taking/PRN Calcium , Not-Taking/PRN hydroCHLOROthiazide , Not-Taking/PRN Januvia , Not-Taking/PRN HYDROmorphone HCl 2 MG Tablet 1 tablet as needed Orally every 6 hrs , Not- Taking/PRN Colcrys 0.6 MG Tablet 1 tablet Orally Once a day , Not-Taking/PRN Meclizine HCl 25 MG Tablet 1 tablet as needed Orally Once a day , Not-Taking/PRN Gabapentin , Medication List reviewed and reconciled with the patient * Allergies: C odeine: loopy. Objective: * Vitals: * P ast Orders: L ab:HEMOGLOBIN A1C (GLYCOHEMOGLOBIN) (Order Date - 09/25/2024) (Collection Date & Time - 09/25/2024 11:13 AM) Value Reference Range HEMOGLOBIN A1C % (HH) 7.5 Assessment: Plan: * Treatment: * Images: * The named appointment provid er may or may not be the originator of this progress note, and it is not deemed complete until electronically signed by the appointment provider. Sign off status: Pending * Provider: Piter Angelo DPM Date: 0 12/29/2024 Generated for Ishan rincon/Faxing/eTransmitting on: 1 12:03 PM EDT
--- NOTE | 2025-03-17 08:38 | MHC.PC.OV ---
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 Required: No Accompanied by: Self / Same As Patient Allergies Yolcwly-HEI-GhA Reductase Inhibitor Allergy (Unknown, Verified 03/17/25 08:38) myalgias codeine Adverse Reaction (Unknown, Verified 03/17/25 08:38) nausea and feels loopy and out of sorts Medication List - Last Reconciled 03/17/25 by Carlos Lloyd MD allopurinol 100 mg PO DAILY aspirin 81 mg PO DAILY blood sugar diagnostic (FreeStyle Test strips) test bid, E11.9 cholecalciferol (vitamin D3) 25 mcg PO DAILY coenzyme Q10 (H2Q CoQ10) mg PO furosemide 20 mg PO DAILY gabapentin 300 mg PO TID glipizide 10 mg PO .2tab bid metformin 500 mg PO ONCE metoprolol succinate ER 50 mg PO DAILY rosuvastatin 10 mg PO BEDTIME Trulicity (dulaglutide) 0.75 mg (0.5 mL) subcut QWEEK NS Tobacco use date assessed: 03/17/25 Fall risk assessment: No Falls in past year Last assessed Fall Risk: 03/17/25 Dental Screening Dental Screen Date: 03/17/25 Did you have a dental visit in the last 12 months?: Yes Did you have a dental problem in the last 6 months where you did not have access to dental care?: No HPI HPI Comments History of Present Illness Details The patient is an 89-year-old female presenting for management of her existing chronic conditions, primarily Type 2 Diabetes Mellitus. She reports that her blood glucose levels are well-controlled with an A1c of 7.5, but she desires to improve this control without the use of insulin. She monitors her glucose levels regularly, with recent readings below 100 mg/dL. Additionally, she has been experiencing diabetic neuropathy, predominantly in her feet, which she describes as constant and bothersome, particularly at night. She currently manages this with gabapentin, with a dosage of 300 mg in the morning and 600 mg at night, but notes that it provides limited relief. The patient has a history of hypertension, though she indicates that elevated blood pressure readings occur primarily in clinical settings. She continues to take prescribed antihypertensives to prevent complications, as advised by her training and documentation specialist. She also manages coronary artery disease with low-dose aspirin and hyperlipidemia with rosuvastatin. Gout is controlled with allopurinol. Her chronic kidney disease, now at stage 4, presents a challenge in managing her neuropathy pain, influencing the caution in adjusting her gabapentin dosage. She is hesitant to add or increase medications due to concerns about potential side effects and polypharmacy. Medical History: - Type 2 Diabetes Mellitus - Diabetic Neuropathy - Hypertension - Coronary Artery Disease - Hyperlipidemia - Gout - Chronic Kidney Disease, Stage 4 Surgical History: - Cortisone injections in the knees (February, unspecified year) Medications: - Glipizide 10 mg twice daily for diabetes - Metformin once daily for diabetes - Dulaglutide 0.75 mg weekly for diabetes - Gabapentin 300 mg in the morning and 600 mg at night for diabetic neuropathy - Aspirin 81 mg daily for coronary artery disease prevention - Rosuvastatin 10 mg daily for hyperlipidemia - Allopurinol 100 mg daily for gout - Antihypertensive medications (unspecified type and dosage for hypertension) Family History: - Mother at 42, limited medical information available - Diabetes present in the family - One brother with rheumatoid arthritis - Sister living at 94 - Generally good longevity in siblings aside from one brother who had rheumatoid arthritis - Nckscl-cs-lee with cancer Diagnostic Results: - A1c: 7.5% Social History: - Caring for with severe dementia - No current tobacco or alcohol use - Reports historical alcohol use in social settings - No recreational drug use - Support system includes a son and daughter - Concerned about polypharmacy and the desire to reduce medications [facility] Medical History (Updated 03/17/25 @ 10:58 by Carlos Lloyd MD) CKD stage 3b, GFR 30-44 ml/min Gout Hypertension Diabetic neuropathy HLD (hyperlipidemia) T2DM (type 2 diabetes mellitus) CAD (coronary artery disease) Multinodular thyroid Surgical History History of surgery History of back surgery Hx of hysterectomy Hx of appendectomy Hx of cholecystectomy Family History (Updated 03/17/25 @ 10:23 by Cassandra Joseph MA) Mother No problems noted. Father No problems noted. Social History Housing: House Alcohol intake: never Patient Tobacco Use Status: Never used Tobacco e-Cigarette/Vaping Use: Never Used service: No Current occupational status: retired Cognitive needs: Yes (walker) Hearing needs: No Vision needs: Yes (rx glasses) Questionnaire PHQ-9 Over the last 2 weeks, how often have you been bothered by any of the following problems? 1. Little interest or pleasure in doing things: not at all 2. Feeling down, depressed, or hopeless: not at all 3. Trouble falling or staying asleep, or sleeping too much: not at all 4. Feeling tired or having little energy: not at all 5. Poor appetite or overeating: not at all 6. Feeling bad about yourself - or that you are a failure or have let yourself or your family down: not at all 7. Trouble concentrating on things, such as reading the newspaper or watching television: not at all 8. Moving or speaking so slowly that other people could have noticed. Or the opposite - being so fidgety or restless that you have been moving around a lot more than usual: not at all 9. Thoughts that you would be better off or of hurting yourself in some way: not at all Total score: 0 Depression Screening Interpretation: Negative Depression Screening Done: Yes 89139 - PHQ-9 Billing: Yes Source: Developed by Drs. Temo Estrada, Fara Scott, Guille Drummond and colleagues, with an educational priyank from [employer]. Thrive Questionnaire Date Thrive assessed: 03/17/25 I am a: Patient What is your living situation today?: I have a steady place to live Within the past 12 months, did the food you bought not last and you didn't have the money to get more?: Never true Within the past 12 months, did you worry whether your food would run out before you got money to buy more?: Never true Do you have trouble paying for medicines?: No Do you have trouble getting transportation to medical appointments?: No Do you have trouble paying your heating and electricity bill?: No Do you have trouble taking care of your child, family member or friend?: No Do you have trouble with day-to-day activities such as bathing, preparing meals, shopping, managing finances, etc.?: No Are you currently unemployed and looking for a job?: No Are you interested in more education?: No THRIVE Score: 0 AUDIT C Alcohol Use Questionnaire (AUDIT-C) 1. How often do you have a drink containing alcohol?: Never 3. How often do you have six or more drinks on one occasion?: Never Total Score: 0 Score Reviewed/Action Taken: Yes RODRÍGUEZ-7 AMB Questionnaire RODRÍGUEZ-7 Date RODRÍGUEZ - 7 assessed: 03/17/25 Feeling nervous, anxious, or on edge: 0 = Not at all Not being able to stop or control worryin = Not at all Worrying too much about different things: 0 = Not at all Trouble relaxin = Not at all Being so restless that it is hard to sit still: 0 = Not at all Becoming easily annoyed or irritable: 0 = Not at all Feeling afraid as if something awful might happen: 0 = Not at all Total RODRÍGUEZ-7 score (0-4 normal; 5-9 mild; 10-14 moderate; 15-21 severe): 0 Source: Developed by Drs. Temo Estrada, Fara Scott, Guille Drummond and colleagues, with an educational priyank from [employer]. RODRÍGUEZ-7 Assessment Billing RODRÍGUEZ-7 Assessment Tool: RODRÍGUEZ-7 Assessment 90300 Review of Systems Const Details: - Cardiovascular: Denies current chest pain, reports stable coronary artery disease management - Endocrine: Reports controlled diabetes, neuropathy in feet - Genitourinary: Denies urological symptoms, aware of chronic kidney disease stage 4 - Musculoskeletal: Reports history of cortisone injections in knees, occasional gout flare-ups - Neurological: Reports neuropathy predominantly in feet, occasional in hands - Lifestyle: Denies current alcohol, tobacco, or drug use All systems reviewed & are unremarkable except as reviewed in HPI and above Physical exam (Primary Care) Vital Signs: Last Vital Signs Temp 97.4 F 03/17/25 10:18 Pulse 65 03/17/25 10:18 BP 150/80 H 03/17/25 10:18 Pulse Ox 97 03/17/25 10:18 Oxygen Delivery Method Room Air 03/17/25 10:18 BMI result Body Mass Index 49.2 Tobacco/Smoking Status: Tobacco use Status Tobacco use date assessed 03/17/25 03/17/25 08:39 Patient Tobacco Use Status Never used Tobacco 03/17/25 08:39 e-Cigarette/Vaping Use Never Used 03/17/25 08:39 PHQ-9: PHQ-9 Score PHQ-9: Total score 0 03/17/25 10:24 Depression Screening Interpretation: Negative Thrive Assessment: Date of Thrive Assessment Date Thrive assessed 03/17/25 03/17/25 08:39 Const Other: General: +Alert and oriented, Well nourished, No acute distress. Eye: Pupils are equal, round and reactive to light, Intact accommodation, Extraocular movements are intact, Normal conjunctiva, Vision unchanged. HENT: Normocephalic, Atraumatic, Tympanic membranes are clear, Normal hearing, Oral mucosa is moist, No pharyngeal erythema, Ear canals patent. Respiratory: Lungs CTA bilaterally, No wheeze, Respirations are non-labored. Cardiovascular: Regular rate, Regular rhythm, S1 auscultated, S2 auscultated, No murmur, Good pulses equal in all extremities, Normal peripheral perfusion, No edema. Gastrointestinal: Soft, Non-tender, Non-distended, Normal bowel sounds, No organomegaly. Musculoskeletal: Normal range of motion, Normal strength, No tenderness, No swelling, No deformity, Normal gait. Integumentary: Warm, Dry, [place], Intact. Neurologic: Alert, Oriented, Normal sensory, Normal motor function, No focal defects, Cranial Nerves II-XII are grossly intact, Normal deep tendon reflexes. Psychiatric: Cooperative, Appropriate mood & affect, Normal judgment. Coding Level of Care Code Est Pt Level 4 (11744) Complex EM visit Add On G2211 Diagnoses Type 2 diabetes mellitus with other specified complication, without long-term current use of insulin E11.69 Diabetes mellitus penitentiary insulin use: without penitentiary use Diabetes mellitus complication status: with other specified complication Diabetic polyneuropathy associated with type 2 diabetes mellitus E11.42 Diabetes mellitus type: type 2 Diabetes mellitus complication detail: diabetic polyneuropathy Hyperlipidemia, unspecified hyperlipidemia type E78.5 Hyperlipidemia type: unspecified Primary hypertension I10 Hypertension type: primary hypertension Chronic gout without tophus, unspecified cause, unspecified site M1A.9XX0 Gout site: unspecified site Gout etiology: unspecified cause Chronicity: chronic Presence of tophus: without tophus CKD stage 3b, GFR 30-44 ml/min N18.32 Additional Codes PHQ-9 - 99253 - PHQ-9 Billing: Yes ([id number]) RODRÍGUEZ-7 Assessment Billing - RODRÍGUEZ-7 Assessment Tool: RODRÍGUEZ-7 Assessment 66569 ([id number]) Assessment & Plan Assessment & Plan (1) T2DM (type 2 diabetes mellitus): Comment: - Monitor glucose levels; recent improvements noted with current routine. - Continue Dulaglutide, Glipizide, and Metformin regimen. - Recheck A1c today to determine change in regiment Code(s): E11.9 - Type 2 diabetes mellitus without complications Category: Medical Qualifiers: Diabetes mellitus director long term care insulin use: without director long term care use Diabetes mellitus complication status: with other specified complication Qualified Code(s): E11.69 - Type 2 diabetes mellitus with other specified complication (2) Diabetic neuropathy: Comment: - Continue gabapentin at the current dosage due to CKD stage 4. - Suggest exploring non-medication approaches such as heat packs. - Discuss potential trial of duloxetine for neuropathic pain with the patient; hesitant to add more medications at present but agreeable to duloxetine (30mg daily started today) Code(s): E11.40 - Type 2 diabetes mellitus with diabetic neuropathy, unspecified Category: Medical Qualifiers: Diabetes mellitus type: type 2 Diabetes mellitus complication detail: diabetic polyneuropathy Qualified Code(s): E11.42 - Type 2 diabetes mellitus with diabetic polyneuropathy (3) HLD (hyperlipidemia): Comment: - Continue rosuvastatin. - Regular lipid panel monitoring as part of routine follow-up. Code(s): E78.5 - Hyperlipidemia, unspecified Category: Medical Qualifiers: Hyperlipidemia type: unspecified Qualified Code(s): E78.5 - Hyperlipidemia, unspecified (4) Hypertension: Comment: - Continue current antihypertensive regimen. - Encourage monitoring of blood pressure at home. Code(s): I10 - Essential (primary) hypertension Category: Medical Qualifiers: Hypertension type: primary hypertension Qualified Code(s): I10 - Essential (primary) hypertension (5) Gout: Comment: - Continue allopurinol regimen. Code(s): M10.9 - Gout, unspecified Category: Medical Qualifiers: Gout site: unspecified site Gout etiology: unspecified cause Chronicity: chronic Presence of tophus: without tophus Qualified Code(s): M1A.9XX0 - Chronic gout, unspecified, without tophus (tophi) (6) CKD stage 3b, GFR 30-44 ml/min: Comment: - Cautious with medications in consideration of renal function. - Regular monitoring of renal parameters through blood work. Code(s): N18.32 - Chronic kidney disease, stage 3b Category: Medical Plan: Health Maintenance: - Blood sugar and A1c monitoring. - Renal function tests. - Lipid panel assessments. Patient was informed and verbally consented to the use of an ambient scribe for clinic note documentation during this visit. Plan During the visit, I discussed the management of the patient's chronic conditions, particularly focusing on diabetes and its associated neuropathy. The patient's current diabetic regimen is effectively maintaining her blood sugar levels, and she reports routine monitoring at home with satisfactory results. I emphasized the importance of continuing this regimen while monitoring blood glucose and A1c levels. For diabetic neuropathy, I provided educational guidance on additional non-pharmacological pain relief options, as well as explored the possibility of introducing duloxetine, weighing its benefits against potential drawbacks given her concern about polypharmacy. We also discussed the continuation of her existing medication regimen for hypertension and coronary artery disease, noting the effectiveness of anti-hypertensive and lipid-lowering treatments. Orders: Orders Hemoglobin A1c Today Carlos Lloyd MD E11.69 - Type 2 diabetes mellitus with other specified complication Comprehensive Met. Panel Today Carlos Lloyd MD N18.30 - Chronic kidney disease, stage 3 unspecified Medications: New duloxetine 30 mg PO DAILY 90 caps 0RF Carlos Lloyd MD Changed From metformin 500 mg PO BID 180 tabs 3RF To metformin 500 mg PO ONCE Ronald Richey MD Patient Instructions: - Continue monitoring your blood sugar levels regularly, aiming to keep your readings as consistent as possible. - Use heat packs for neuropathy pain management in your feet. - Do not take Tylenol PM for sleep; avoid additional sedatives. - Continue taking all prescribed medications as directed, and discuss any concerns. - We will perform blood tests today to check your kidneys and sugar levels. - Keep tracking any changes in your conditions or symptoms and notify me if necessary. - Keep an eye on your 's condition and seek support from family as needed.
[2025-03-17 10:18] VITALS: BP 150/80; PULSE 65; TEMP 36.3; O2SAT 97; BMI 49.2
--- OUTSIDE RECORDS SUMMARY | 2025-03-17 12:04 | XMS_ITS | Patient Health Record ---
Author Organization [facility] Address [address] [place] [address] Care Team Providers Care Health Education Director Name Role Phone Bee Arteaga Primary Care Provider Natalie Quintana Unavailable [phone] Ana Fletcher Unavailable [phone] Allergies Allergen (clinical drug ingredient) Drug/Non Drug [...] Problem Acquired hammer toe of right foot (8352152407495704 ) Other hammer toe(s) (acquired), right foot (M20.41) Active confirmed Problem Acquired hammer toe of left foot (8232065570486357 ) Other hammer toe(s) (acquired), left foot (M20.42) Active confirmed Problem Polyneuropathy due to type 2 diabetes mellitus (306359849) Type 2 diabetes mellitus with diabetic polyneuropathy (E11.42) Active confirmed Vital Signs Blood pressure diastolic 65 mm Hg 03/05/2025 Height 5 ft 1 in in 03/05/2025 Blood pressure systolic 128 mm Hg 03/05/2025 Weight 250 lbs 03/05/2025 BMI 47.23 kg/m2 03/05/2025 Procedures Procedure Date Ordered Date Performed Result Body Sit e 76311-FUEXECB NAIL, 6 OR MORE 07/14/2024 N/A 24982-MGHA SKIN LESIONS, 2 TO 4 07/14/2024 N/A 18889-VSOROEJ NAIL, 6 OR MORE 03/05/2025 N/A 55064-ADQL SKIN LESIONS, 2 TO 4 03/05/2025 N/A Encounters Encounter Location Date Provider Diagnosis [address] [address] 07/14/2024 Natalie Angelo Type 2 diabetes mellitus with diabetic polyneuropathy E11.42 and Tinea unguium B35.[address] [address] 10/14/2024 Ana Fletcher Other hammer toe(s) (acquired), right foot M20.41 ; Other hammer toe(s) (acquired), left foot M20.42 ; Type 2 diabetes mellitus with diabetic polyneuropathy E11.42 and Tinea unguium B35.[address] [address] 03/05/2025 Natalie Angelo Type 2 diabetes mellitus with diabetic polyneuropathy E11.42 and Tinea unguium B35.[address] [address] 05/15/2024 Natalie Angelo [address] [address] 12/29/2024 Natalie Angelo Assessments Encounter Date Diagnosis [...] X ray : Foot, left 3V 11/18/2020 81791-KGDSORA NAIL, 6 OR MORE 07/14/2024 02116-YQGJIAM NAIL, 6 OR MORE 03/05/2025 96186-KXOLVPW NAIL, 6 OR MORE 08/27/2013 79077-BKBGGHS NAIL, 6 OR MORE 02/26/2013 78231-XEANDAY NAIL, 6 OR MORE 05/28/2013 91576-HLOVIEV NAIL, 6 OR MORE 03/11/2012 71415-VSKMFYH NAIL, 6 OR MORE 05/27/2012 79077-UBKDKXE NAIL, 6 OR MORE 08/21/2012 40513-EZKFLVR NAIL, 6 OR MORE 11/25/2012 98618-LKUXYAF NAIL, 6 OR MORE 12/11/2013 15805-ECAAUUQ NAIL, 6 OR MORE 02/16/2014 12320-CXMVXXB NAIL, 6 OR MORE 05/18/2014 92255-FRLDVAV NAIL, 6 OR MORE 08/24/2014 14767-ZUNHWDG NAIL, 6 OR MORE 12/16/2014 63415-FZQPOVO NAIL, 6 OR MORE 03/17/2015 79362-AHYPFOY NAIL, 6 OR MORE 06/21/2015 69717-LKPPVYN NAIL, 6 OR MORE 09/13/2015 76652-MKSLCWV NAIL, 6 OR MORE 11/26/2017 90788-PAFZPXI NAIL, 6 OR MORE 2018 40498-ZQLUMLK NAIL, 6 OR MORE 05/27/2018 69053-ZQJQGLE NAIL, 6 OR MORE 12/09/2015 06819-UGJTKNM NAIL, 6 OR MORE 03/06/2016 73749-MXNLUWT NAIL, 6 OR MORE 06/19/2016 26888-EWOANUO NAIL, 6 OR MORE 09/18/2016 24879-LFHURYH NAIL, 6 OR MORE 12/20/2016 51636-SFBGOFY NAIL, 6 OR MORE 03/12/2017 56541-AWUZBQR NAIL, 6 OR MORE 05/28/2017 53977-LXWALMF NAIL, 6 OR MORE 08/29/2017 59225-Suigndsk Plate 11/25/2012 54218-Ffzxgrax Plate 08/21/2012 60965-TPJP SKIN LESIONS, OVER 4 08/04/19 22 09895-UXNZ SKIN LESIONS, 2 TO 4 03/05/20 25 64160-NYUW SKIN LESIONS, 2 TO 4 07/14/19 25 47282-FKMA SKIN LESIONS, 2 TO 4 08/22/19 13 24620-WFSY SKIN LESIONS, 2 TO 4 05/27/20 12 62070-YOGP SKIN LESIONS, 2 TO 4 03/11/20 12 84346-UZZD SKIN LESIONS, 2 TO 4 05/28/20 13 27680-UWWM SKIN LESIONS, 2 TO 4 02/27/20 13 45415-WBBO SKIN LESIONS, 2 TO 4 08/28/19 14 37253-KHJX SKIN LESIONS, 2 TO 4 09/13/19 16 75311-OSXL SKIN LESIONS, 2 TO 4 06/21/19 16 59801-KFGA SKIN LESIONS, 2 TO 4 03/17/20 15 47365-IZOC SKIN LESIONS, 2 TO 4 12/17/19 15 62704-CYMF SKIN LESIONS, 2 TO 4 08/25/19 15 76838-ROGE SKIN LESIONS, 2 TO 4 05/18/20 14 02774-ZJCH SKIN LESIONS, 2 TO 4 02/17/20 14 84524-SMLJ SKIN LESIONS, 2 TO 4 12/12/19 14 98632-QKIL SKIN LESIONS, 2 TO 4 11/27/19 18 17495-JADY SKIN LESIONS, 2 TO 4 08/30/19 18 18559-HYAM SKIN LESIONS, 2 TO 4 05/28/20 17 22923-UIUV SKIN LESIONS, 2 TO 4 03/12/20 17 76067-DDQP SKIN LESIONS, 2 TO 4 09/19/19 17 50600-SELJ SKIN LESIONS, 2 TO 4 12/21/19 17 74319-TOWU SKIN LESIONS, 2 TO 4 06/19/19 17 38747-OIEX SKIN LESIONS, 2 TO 4 03/06/20 16 10920-VXKW SKIN LESIONS, 2 TO 4 12/09/19 16 23310-THZQ SKIN LESIONS, 2 TO 4 08/27/19 19 28460-HSPW SKIN LESIONS, 2 TO 4 11/12/19 19 93427-SYWT SKIN LESIONS, 2 TO 4 02/04/20 19 62924-YQMO SKIN LESIONS, 2 TO 4 06/20/19 20 47063-IEUE SKIN LESIONS, 2 TO 4 11/12/19 20 19826-MEEV SKIN LESIONS, 2 TO 4 02/04/20 20 60139-UYIC SKIN LESIONS, 2 TO 4 05/10/20 20 66110-FCMJ SKIN LESIONS, 2 TO 4 08/19/19 21 62234-ZJYW SKIN LESIONS, 2 TO 4 11/16/19 21 61126-UEQE SKIN LESIONS, 2 TO 4 05/27/20 18 73349-ORXR SKIN LESIONS, 2 TO 4 02/26/20 18 83263-LXOJ SKIN LESIONS, 2 TO 4 02/03/20 21 24004-OZKD SKIN LESIONS, 2 TO 4 04/27/20 21 Next Appt Details Provider Name:Natalie Le leandra, 06/18/2025 11:15:00 AM, [address] [place] [address], [phone], Insurance Providers Payer Name Payer Address Payer Phone Subscriber Number Group Number Insured Name Patient Relationship to Insured Coverage Start Date Coverage End Date Medicare [facility] [address] [facility] [address] [id number] Erica Diallo Self - patient is the insured 2 [employer] [address] [place] [address] [phone] [id number] Erica Diallo Self - patient is the [...]
--- OUTSIDE RECORDS SUMMARY | 2025-03-17 12:04 | XMS_ITS | Clinical Summary ---
Author Organization [facility] Address [address] [place] [address] Care Team Providers Care Patient Care Assistant Name Role Phone Fidel Lucero MD [...] AM EDT Office Visit [facility], [address] [address] Lance Núñez MD Primary open angle glaucoma of both eyes, unspecified glaucoma stage (Primary Dx); Dry eye syndrome, bilateral; Type 2 diabetes mellitus without complication, without long-term current use of insulin ([facility]); Other complications of corneal transplant, bilateral [...] AM EST Office Visit [facility], [address] [phone] Lance Núñez MD [address] [place] [phone] (Fax) Health Maintenance Due Date Last Done [...] this topic Medical Devices Implanted Type Area Saw Man Device Identifier Shelf Expiration Date Model / Serial / Lot Cornea Dsaek Implanted:Qty : 1 on 03/08/2016 by Lance Núñez MD at [facility] Left: Eye Other 03/18/2016 [id number] / / Description:Eversight Cornea Precut Eversight Pre-Cut Cornea Eversight - [id number] Implanted:Qty : 1 on 10/06/2020 by Lance Núñez MD at [facility] Tissue Left: Eye EVERSIGHT 10/13/2020 CORNEA PRECUT EVERSIGHT / [id number] / Insurance MEDICARE PART A & B [employer] MEDICARE PART A & B zePASS COMPREHENSIVE Advance Directives * Full Code (Latest Code Status on File) Date Activated Date Inactivated Comments 10/06/2020 9:15 AM * Full Code Date Activated Date Inactivated Comments 03/08/2016 8:19 AM 03/08/2016 2:50 PM Care Teams Patient Care Assistant Relationship Specialty Start Date End Date Fidel Lucero MD [address] [place] [address] Dr Doss, [place] [address] PCP - General 03/01/16
--- OUTSIDE RECORDS SUMMARY | 2025-03-17 12:04 | XMS_ITS | Clinical Summary ---
Author Organization [address] [place] [address] Address [address] [place] [address] Phone Care Team Providers Care Home Administrator Name Role Phone Bee Briseno MD Primary Care Provider [phone] Allergies Active Allergy Reactions Criticality Noted Date [...] for rides. Coronary artery disease invo lving unga coronary artery of unga heart without angina pectoris 02/26/2021 Overview (02/03/2025): [...] Description 02/03/2025 11:20 AM EDT Office Visit [facility] - [address] [place] [phone] Marisa Bustos NP Coronary artery disease involving unga coronary artery of unga heart without angina pectoris (Primary Dx); Atrioventricular block, complete (CMS/HCC V24, CMS/HCC V28); Primary hypertension; Takotsubo cardiomyopathy; Pure hypercholesterolemia 01/08/2025 1:15 AM EDT Ancillary Procedure [facility] [address] [place] [phone] from Last 3 Months Surgical History Surgery [...] Description 04/14/2025 10:00 AM EST Ancillary Procedure [facility] [address] [facility] [address] [place] [address] Health Maintenance Due Date Last [...] this topic Medical Devices Implanted Type Area Van Driver Device Identifier Shelf Expiration Date Model / Serial / Lot [facility]-[employer] 2272 Assurity Mri(Tm) [id number] Implanted: (Quantity not on file) Cardiac Pacemaker [employer]- [employer] 2272 ASSURITY MRI(TM) / [id number] / Procedures Procedure Name Priority Date/Time Associated Diagnosis Comments ECG 12-LEAD Routine 02/03/2025 2:08 PM EDT Coronary artery disease involving unga coronary artery of unga heart without angina pectoris CARDIAC DEVICE CHECK- REMOTE- MURJ Routine 01/08/2025 1:11 AM EDT from Last 3 Months Results * ECG 12 lead (02/03/2025 2:08 PM EDT) Ventricular Rate ECG 60 BPM GEMUSE Atrial Rate 60 BPM GEMUSE P-R Interval 196 ms GEMUSE QRS Duration 154 ms GEMUSE Q-T Interval 460 ms GEMUSE QTc 460 ms GEMUSE P Wave Adrian -177 degrees GEMUSE R Adrian -94 degrees GEMUSE T Adrian 87 degrees GEMUSE ECG Interpretation AV dual-paced rhythm Abnormal ECG When compared with ECG of 18-FEB-2020 10:40, Electronic ventricular pacemaker has replaced Sinus rhythm Confirmed by Brandon HERNANDEZ JAY ([id number]) on 02/12/2025 10:30:40 AM GEMUSE 02/03/2025 11:2 8 AM EDT 02/12/2025 10:30 AM EDT Marisa Bustos NP ECG ORDERABLES Edited Result - Final INGRID * Cardiac device check - Remote- MURJ (01/08/2025 1:11 AM EDT) Date Time Interrogation Session [id number] CV DEVICE CHECK Type Interrogation Session Remote Scheduled CV DEVICE CHECK Implantable Pulse Generator Van Driver [employer] CV DEVICE CHECK Implantable Pulse Generator Type IPG CV DEVICE CHECK Implantable Pulse Generator Model 2272 Assurity MRI(TM) CV DEVICE CHECK Implantable Pulse Generator Serial Number [id number] CV DEVICE CHECK Implantable Pulse Generator Implant Date [id number] CV DEVICE CHECK Battery Remaining Percentage 56.00 CV DEVICE CHECK Battery Remaining Longevity 70.0 CV DEVICE CHECK Battery Voltage 2.990 CV D EVICE CHECK Battery ELOCUTION TEACHER Trigger 2.600 CV DEVICE CHECK Battery Status Middle of Service CV DEVICE CHECK Peter Statistic RA Percent Paced 20.00 CV DEVICE CHECK Peter Statistic RV Percent Paced 98.00 CV DEVICE CHECK Atrial Tachy Statistic AT/AF [place] Percent 0.00 CV DEVICE CHECK Lead Channel [...] MEDICARE [facility] Care Teams Home Administrator Relationship Specialty Start Date End Date Bee Briseno MD [address] [place] [phone] PCP - General Internal Medicine 02/03/25
--- OUTSIDE RECORDS SUMMARY | 2025-03-17 12:04 | XMS_ITS | Patient Health Record ---
Author Organization [facility] Address [address] [place] [address] Care Team Providers Care Pododermatologist Name Role Phone Nic (RETIRED) Fidel IVORY Primary Care Provide Jonas Ga Jr Unavailable [phone] Allergies Allergen (clinical drug ingredient) Drug/Non Drug [...] Problem Status W/U Status Risk Notes Problem [id number] Change in bowel habits (R19.4) Active confirmed Problem [id number] Abnormal CT scan, colon (R93.3) Active confirmed Problem [id number] Dysphagia, unspecified type (R13.10) Active confirmed Plan Of Treatment No Information Insurance Providers Payer Name Payer Address Payer Phone Subscriber Number Group Number Insured Name Patient Relationship to Insured Coverage Start Date Coverage End Date MEDICARE OF [place] [address] [place] [id number] [phone] [id number] ARLYN HUMPHRIES Self - patient is the insured [employer] ATT[employer] CLAIMS [address] [place] [address] [id number] ARLYN HUMPHRIES Self - patient is the insured Medical (General) History Medical History History ICD Code Denies NC,CVA,Lung disease,renal disease diabetes mellitus vertigo Surgical History Surgery Date(Month/Year) appendectomy cholecystectomy hysterectomy back surgery shunt placement in eye
--- OUTSIDE RECORDS SUMMARY | 2025-03-17 12:04 | XMS_ITS | Encounter Summary ---
Author Organization [facility] Address [address] [place] [address] Care Team Providers Care Magnet Maker Name Role Phone Fidel Lucero MD Primary Care Provider [phone] Encounter Details Date Type Department Care Team (Late Contact Info) Description 03/07/2016 Prep for Surgery [facility] [address] [place] [phone] Lance Núñez MD [address] [place] [phone] Social History Tobacco Use Types Packs/Day Years [...] AM EST Office Visit [facility], [address] [phone] Lance Núñez MD [address] [place] [phone] (Fax) documented as of this encounter Visit Diagnoses Not on filedocumented in this encounter Care Teams Magnet Maker Relationship Specialty Start Date End Date Fidel Lucero MD [address] [place] [address] [place] [address] PCP - General 03/01/16 documented as of this encounter
== END 2025-03-17 10:59 | disposition home or self-care (01) ==
PROVIDERS: PCP Student in an Organized Health Care Education/Training Program; Visit Provider Student in an Organized Health Care Education/Training Program
DX: E11.69 Type 2 diabetes mellitus with other specified complication (principal); E11.42 Type 2 diabetes mellitus with diabetic polyneuropathy; E78.5 Hyperlipidemia, unspecified; I10 Essential (primary) hypertension; M1A.9XX0 Chronic gout, unspecified, without tophus (tophi); N18.32 Chronic kidney disease, stage 3b

== ENCOUNTER → 2025-03-17 10:10 | Outpatient (BNVA) | payer MEDICARE, SELFPAY | PROVIDERS: PCP Internal Medicine; Visit Provider Student in an Organized Health Care Education/Training Program | DX: E11.69 Type 2 diabetes mellitus with other specified complication (principal); E11.42 Type 2 diabetes mellitus with diabetic polyneuropathy; E78.5 Hyperlipidemia, unspecified; I12.9 Hypertensive chronic kidney disease with stage 1 through stage 4 chronic kidney disease, or unspecified chronic kidney disease; N18.32 Chronic kidney disease, stage 3b; M1A.9XX0 Chronic gout, unspecified, without tophus (tophi); Z13.31 Encounter for screening for depression; Z13.39 Encounter for screening examination for other mental health and behavioral disorders | CPT/HCPCS: 96127; 99212 ==

== ENCOUNTER 2025-03-17 11:21 | Outpatient (REF) | payer MEDICARE, SELFPAY ==
[2025-03-17 13:34] LABS: Alanine Aminotransferase 38 U/L (0-31); Albumin Level 3.5 g/dL (3.5-5.0); Alkaline Phosphatase 146 U/L (39-117); Anion Gap 12 (12-20); Aspartate Amino Transferase 42 U/L (5-31); Blood Urea Nitrogen 33 mg/dL (9-16); Calcium 9.2 mg/dL (8.4-10.2); Carbon Dioxide 26 mmol/L (22-29); Chloride 106 mmol/L (96-108); Estimated Glomerular Filt Rate 34; Potassium 5.0 mmol/L (3.3-5.1); Sodium 139 mmol/L (135-145); Total Protein 6.3 g/dL (6.5-8.0)
[2025-03-17 13:37] LABS: Hemoglobin A1C 230.9764 umol/L; Total Hemoglobin (HGBA1C) 3819.0043 umol/L
== END 2025-03-17 11:22 | disposition home or self-care (01) ==
LOC: HO.10HDL 11:21
PROVIDERS: Visit Provider Student in an Organized Health Care Education/Training Program
DX: E11.69 Type 2 diabetes mellitus with other specified complication (principal); N18.30 Chronic kidney disease, stage 3 unspecified
CPT/HCPCS: 36415; 80053; 83036